=== PATIENT | female | born 1930 | race Caucasian/White ===

== ENCOUNTER 2017-04-22 14:17 | Inpatient (IN) | payer MEDICARE, OTHER ==
[~2017-04-22] VITALS: Ht 157.5 cm; Wt 66.8 kg
[~2017-04-22 14:17] MED LIST: ASPIRIN EC81 MG PO; BENADRYL25 MG PO; CALCIUM600 MG PO; CARVEDILOL25 MG PO; COLACE100 MG PO; DOXAZOSIN MESYLA2 MG PO; FUROSEMIDE20 MG PO; HYDROCHLOROTHIA50 MG PO; IRON18 MG PO; LEVOTHYROXINE88 MCG PO; LISINOPRIL40 MG PO; LUTEIN20 MG PO; MULTI VITAMIN1 EACH PO; NORCO 5-325 TA1 EACH PO; PERCOCET 5-3251 EACH PO; POTASSIUM CHLO20 ME1 PO; VALTREX1000 MG PO
--- NOTE | 2017-05-20 08:36 | NUR ---
05/20/17 0836 Ibis Varma PT O2 100, O2 REMOVED
--- NOTE | 2017-05-20 10:14 | NUR ---
LE 0980 PT RETURNED FROM PACU SLEEPY AND THROWING UP ORANGE BILE. 50ML OF EMESIS IN BAG. CLEANED PT UP. OXYGEN SATS 88% ON RA. 2L NC PLACED AND SATS INCREASED TO 98%. SPOUSE AT BEDSIDE. 0945 PT SIPPING ON SPRITE. 1000 PT RESTING. REU.
--- NOTE | 2017-05-20 10:30 | OR ---
[facility] [address], [place] [address] Signed DATE OF SERVICE: 05/20/2017 PREOPERATIVE DIAGNOSIS: Left knee degenerative joint disease. POSTOPERATIVE DIAGNOSIS: Left knee degenerative joint disease. PROCEDURE PERFORMED: Left total knee arthroplasty with computer navigation. SURGEON: Rani Loomis MD. EXTRUSION FORMER: None. TOURNIQUET TIME: 54 minutes. ANESTHESIA: Spinal with adductor canal block. IMPLANTS: Ying triathlon size 4, 9 mm polyethylene, 32 patella. BRIEF HISTORY: Shila is an 87-year-old female with severe arthritis in her knee. Nonoperative treatment including injections did not work. She wished to proceed with operative intervention. Risks, benefits, and alternatives were discussed at length. She received preoperative clearance from her PCP and Cardiology. Once consent was obtained, she was taken to operating room. After adequate anesthesia, she was placed on operating room table. All downside pressure points well padded. The left leg was placed in well-padded proximal thigh tourniquet. The leg was then prepped and draped in standard sterile fashion. Leg was exsanguinated using Esmarch bandage. Tourniquet inflated to 250 mmHg. Standard anterior approach through curved incision was taken through skin and subcutaneous tissue. Median parapatellar arthrotomy was performed. The infrap a tellar fat pad was excised and the MCL was elevated of a sleeve posteromedially and the knee was flexed. The menisci were removed. The ACL was transected. The PCL was found to be intact. The navigation guide for the distal femur was then pinned and the femur was registered with the computer. The distal femoral cutting block was then pinned in neutral alignment. The distal femoral cut was made. Distal femur sized to a 4 and the 4 cutting block was pinned in line with the epicondylar axis. The anterior, post e rior and chamfer cuts were made. The osteophytes were removed. Attention was then turned to the proximal tibia. The navigation guide was pinned to the tibia and the tibia was registered with the computer. The cutting block was then pinned in neutral alignment once again and the proximal tibial cut was made with care taken to protect the patellar tendon and MCL. The bone block was removed. Posterior osteophytes removed off the femur Electronically Signed By: RANI LOOMIS MD 05/20/17 1030 PATIENT NAME: SHILA MORALES OPERATIVE REPORT DATE OF : 31 PHYSICIAN: RANI LOOMIS MD REPORT #: [id number] REPORT IS CONFIDENTIAL AND NOT TO BE RELEASED WITHOUT AUTHORIZATION [facility] [address], [place] [address] Signed and posterior release performed. Flexion-extension gaps were sized, found to be symmetric at 9 mm. The trials were then positioned. Knee taken through range of motion and found to be stable. The patella was cut sized and drilled for a 32 patella. The distal femoral drill holes were drilled and the trial was removed. The bone was pulse lavaged, packed with dry Ray-Jerson. The cement was mixed. When it reached proper consistency, it was placed on all implants and bone surfaces. Tibia was impacted in position first and the excess cement was removed. The polyethylene was snapped into position and the femur was impacted. Again, any excess cement was removed. The knee was extended and nicely loaded. The patella was clamped and remaining cement was removed. Cement was allowed to harden for 10 minutes, which actually was quite hard in this ca s e and the knee was flexed and the remaining cement was removed using osteotomes. Periarticular soft tissues were injected with ropivacaine and Toradol mixture. The knee was pulse lavaged at intervals throughout the procedure . A total of 3 L of antibiot i c irrigation was used. The arthrotomy was closed using #1 Stratafix, subcutaneous tissue with 0 Stratafix and skin with jose a. Wound was dressed with Mepilex Ag dressing, ABD and Max wrap. She was awakened and taken to recovery room in satisfactory condition. All sponge, needle, and instrument counts were correct. Rani Loomis MD BA/Modl /[id number] Electronically Signed By: RANI LOOMIS MD 05/20/17 1030 PATIENT NAME: SHILA MORALES OPERATIVE REPORT DATE OF : 31 PHYSICIAN: RANI LOOMIS MD REPORT #: [id number] REPORT IS CONFIDENTIAL AND NOT TO BE RELEASED WITHOUT AUTHORIZATION
--- NOTE | 2017-05-20 11:33 | NUR ---
LE 1110 PT INCONTINENT OF LG AMOUNT OF URINE. PT CLEANED UP AND LINEN CHANGED. REPOSITIONED PT TO LAY ON L SIDE. PILLOW BETWEEN LEGS AND BEHIND BACK. SPOUSE AT BEDSIDE. OXYGEN TURNED OFF AND SATS DROPPED TO 82%. OXYGEN BACK ON AT 2L VIA NC WITH SATS 100%.
--- NOTE | 2017-05-20 13:07 | NUR ---
PATIENT ARRIVED TO MED SURG AT 1PM. PATIENT IS NAUSEATED/SLEEPY. IV ZOFRAN ORDER PUT IN [facility]. LEFT KNEE DRESSING IS CDI, KRYO CUFF AND HEEL PROTECTORS IN PLACE. PATIENT IS ON 2L OXYGEN FOR SATS OF 99%. PATIENT REPORTEDLY DESATS TO MID 80'S ON ROOM AIR. DR. KUMAR AWARE OF CONSULT.
--- NOTE | 2017-05-20 14:32 | NUR ---
DR. KUMAR IN TO SEE PATIENT. REGLAN 5MG IV GIVEN FOR CONTINUED NAUSEA. IVF PUT ON HOLD PER DR. KUMAR AND PATIENT CHF HISTORY.
--- NOTE | 2017-05-20 16:12 | NUR ---
PATIENT INCONTINENT OF COPIUS URINE, LINENS CHANGED. PATIENT CONTINUES TO HAVE NAUSEA. DR. KUMAR ORDERED 6.25MG OF IV PHENERGAN. DISCUSSES WITH DR. KUMAR NAUSEA/NO ORAL INTAKE/SL STATUS AND POSSIBILITY OF RESTARTING IVF AT SOME POINT IN THE FUTURE.
--- NOTE | 2017-05-20 17:48 | NUR ---
PATIENT SLEEPING,NO DISTRESS, REGULAR RESPIRATIONS. 2L OF OXYGEN ON AND SATS ARE 99-100%
--- NOTE | 2017-05-20 18:29 | NUR ---
PATIENT RESTING IN BED. STATES THAT SHE'S READY TO EAT. CALL BUTTON IN REACH.
--- NOTE | 2017-05-20 20:55 | NUR ---
PT IS ALERT, ORIENTED IN GOOD SPIRITS, DENIES ANY PAIN, STATES SHE CAN FEEL FAINT SENSATION IN TOES AND TINGLING. INC OF URINE. DRSG IS CDI TO KNEE WITH CRYCUFF ON. HS CARES DONE AND REPOSITIONED FOR COMFORT, WARM BLANKET. DENIES FURTHER NEEDS. CALL LIGHT IN EASY REACH.
--- NOTE | 2017-05-21 02:58 | NUR ---
AWAKE,VS TAKEN, VOIDED 100ML ORANGE URINE INTO BEDPAN, ATTENDS WITH SMALL INCONTINENCE, DRSG IS CDI, CMS INTACT NOW, OXYCODONE 5MG PO GIVEN. RATES PAIN 10/09. "BARELY THERE". EATING CRACKERS AT THIS TIME. CALL LIGHTIN EASY REACH.
--- NOTE | 2017-05-21 05:20 | NUR ---
AWAKE ASKED FOR BREAKFAST ORDER TO BE TAKEN, STATES SHE IS BEGINNING TO BE HUNGRY. LAB IN TO DRAW BLOOD FOR SCHEDULED LABS. PT CONT TO RATE PAIN 1/10,"JUST BARELY THERE". CALL LIGHT IN EASY REACH.
--- NOTE | 2017-05-21 07:20 | NUR ---
REPORT RECIEVED FROM JULITO. PT AWAKE AND DENIES PAIN OR CONCERNS AT THIS TIME.
--- NOTE | 2017-05-21 09:10 | NUR ---
PT SITTING UP INCHAIR. STILL DENIES PAIN BUT WOULD LIKE TO TAKE HER PAIN MED INCASEFORTHERAPY.
--- NOTE | 2017-05-21 10:45 | NUR ---
PATIENT UP TO BSC. BED BATH DONE. RACHELE, SKIN, ORAL CARE DONE. LINENS CHANGED. FRESH ICE WATER GIVEN. ICE IN CRYO. PATIENT SITTING UP IN CHAIR WORKING WITH PT.
--- NOTE | 2017-05-21 11:11 | NUR ---
PT WORKING WITH PHYS. THER. STATES IT IS STARTING TO WAKE UP AND HURT. WILL ADMINISTERED PRN PAIN MED.
[2017-05-21] MEDS ORDERED: COREG25 MG PO (11:15)
--- NOTE | 2017-05-21 11:17 | NUR ---
MED REC COMPLETE WITH SAFEWAY REFILL HISTORY AND PATIENT INTERVIEW.
--- NOTE | 2017-05-21 11:45 | NUR ---
ADMINSTERED MEDS. PT IN ROOM. DENIES FURTHER CONCERNS.
--- NOTE | 2017-05-21 13:44 | NUR ---
PT HAS VISITOR IN ROOM. STATES THAT THE LAST PAIN PILL DID WELL AND DENIES DISCOMFORT NOW.
--- NOTE | 2017-05-21 15:59 | NUR ---
PT UP TO RESTROOM AND WAS PAINFUL, 8\10. ADMINISTERED 2 NORCO, PRN. ASSESSED DRESSING. SLIGHT AMT OF DRY DRAINAGE ON MEPILEX.
--- NOTE | 2017-05-21 18:50 | NUR ---
PATIENT BACK IN BED RESTING WITH EYES CLOSED. ICE IN CRYO. FRESH ICE WATER. PATIENT STATES THAT HER PAIN HAS GONE DOWN ALOT. CALL BUTTON IN REACH. NO OTHER NEEDS AT THIS TIME.
--- NOTE | 2017-05-21 20:05 | NUR ---
RESTING QUIETLY ON BED, STATES SHE IS COMFORTABLE AT THE MOMENT, DAUGHTER IN TO VISIT. CALL LIGHT IN EASY REACH.
--- NOTE | 2017-05-22 00:13 | NUR ---
ONE PERSON ASSIST TO AMBULATE INTO BATHROOM TO VOID USING FWW. ASSISTED BACK INTO BED AND POSITIONED FOR COMFORT,ICE TO KNEE, SCDS AND HEEL PROTECTORS ON. STATES L KNEE IS ACHING, NORCO 7.5MG TAB GIVEN. DENIES NAUSEA. CALL LIGHT IN EASY REACH.
--- NOTE | 2017-05-22 00:16 | NUR ---
PT REPORTS 2ND NORCO HELPED ALOT, PAIN NOW 12/07. GOOD CMS TO L FOOT.
--- NOTE | 2017-05-22 01:15 | NUR ---
AWAKE, REPOSITIONED FOR COMFORT, FEELS L KNEE IS BEGINNING TO ACHE AGAIN, SCHEDULED OXYCODONE GIVEN. DRSG REMAINS CDI. GOOD CMS TO FOOT. CALL LIGHT IN EASY REACH.
--- NOTE | 2017-05-22 02:11 | NUR ---
PT IS ASLEEP, RESP EVEN AND UNLABORED. CALL LIGHT IN EASY REACH.
--- NOTE | 2017-05-22 06:38 | NUR ---
PT WOKE FOR VS AND WEIGHT. ONE PERSON ASSIST TO AMBULATE INTO BATHROOM TO VOID. PT C/O PAIN IN L KNEE THIS MORNING 02/06. HYDROCODONE 2 TABS GIVEN. REPOSITIONED FOR COMFORT IN BED, ICE TO KNEE, SCDS ON, CMS INTACT TO L FOOT. LOOKING FORWARD TO BREAKFAST. CALL LIGHT IN EASY REACH.
--- NOTE | 2017-05-22 07:31 | NUR ---
REPORT RECIEVED FROM KODY WEST. PT SLEEPING. PAIN MEDICATION MAY NEED TO BE CHANGED OR INCREASED PAIN CONTROLL IS GETTING INCREASING HARDER TO ACHIEVE.
--- NOTE | 2017-05-22 08:15 | NUR ---
patient in bed very painful for any ADL'S at this time. Nurse in room assisting patient. fresh water given. ice in cryo.
--- NOTE | 2017-05-22 08:50 | NUR ---
PT REMAINED PAINFUL AFTER 2 NORCO GIVEN BY ENTRY LEVEL ACCOUNTING CLERK. CALLED DR. ORTEGA AND HE CHANGED ORDER TO 7.5MG Q4PRN. TITRATED UP. WILL CHECK ON PT SHORTLY.
--- NOTE | 2017-05-22 11:04 | NUR ---
PATIENT UP TO CHAIR. TOO PAINFUL FOR ANY ADL'S AT THIS TIME. ORAL CARE DONE EARLIER THIS AM. FRESH ICE WATER GIVEN. ICE IN CRYO. NO OTHER NEEDS AT THIS TIME. CALL BUTTON IN REACH.
--- NOTE | 2017-05-22 11:15 | NUR ---
PT WORKED WITH PHYS. THER. STATES HER PAIN 03/09 AND IS NOT WANTING TO DO MUCH WITH JOSE. TOLD HER WE WOULD ADMINISTER PAIN MEDS BEFORE THERAPY THIS AFTERNOON AND ENCOURAGED HER TO AMBULATE.
--- NOTE | 2017-05-22 11:43 | NUR ---
PT HAD STATED THIS MORNING SHE FELT LIKE SHE WAS GETTING CONSTIPATED. TOLD DR ORTEGA UPON ARRIVAL TO FLOOR HE VERBALLY ORDERED SENNA.
--- NOTE | 2017-05-22 12:38 | NUR ---
PT BACK TO BED AFTER UP IN CHAIR. ADMINISTERED PAIN MED, 02/06
--- NOTE | 2017-05-22 14:07 | NUR ---
HELPED PT'S FIND HER RM. HE WAS VERY FRIENDLY, SHE IS IN PAIN TODAY. SHE DID NOT WANT VISITORS. HE THANKED ME AND JOKED THAT THERE WOULD NOT BE ANY ROMANCE TONIGHT. HE HAS KEPT HIS SENSE OF HUMOR. GOD BLESS THEM. I WILL FOLLOW NEEDED
--- NOTE | 2017-05-22 14:15 | NUR ---
PATIENT IS RESTING IN BED WITH EYES CLOSED. ICE IN CRYO. FRESH ICE WATER GIVEN. NO NEEDS AT THIS TIME. CALL BUTTON IN REACH.
--- NOTE | 2017-05-22 15:51 | NUR ---
PT UP TO RESTROOM, THEN WORKING WITH PHYS. THER. PT PAINFUL, HAVE PREMEDICATED WITH FULL DOSE OF PRN.
--- NOTE | 2017-05-22 16:33 | NUR ---
PT STATES RECORDING CLERK,WAS PAINFUL BUT SHE DID IT. NOW BACK TO BED.
--- NOTE | 2017-05-22 17:34 | NUR ---
PATIENT SITTING UP IN BED WITH DINNER. SHE REFUSED TO SIT UP IN CHAIR. FRESH ICE WATER GIVEN. ICE IN CRYO. CALL BUTTON IN REACH.
--- NOTE | 2017-05-22 18:08 | NUR ---
PAIN MEDICATION INCREASED TODAY. STILL FAILY PAINFUL. WORKED WITH PHSY THER. X2 TODAY. DRESSING REPLACED, CDI. 1 PERS. ASSIST WITH FWW TO RESTROOM. DEPENDS FOR DRIBBLING. WOULD LIKE NO VISITORS OTHER THAN FAMILY.
--- NOTE | 2017-05-22 20:04 | NUR ---
IN TO MEET PT, PT AWAKE ATTEMPTING TO EAT DINNER. PT C/O NAUSEA. PRN MEDICATION GIVEN. DRESSING C/D/I. CRYO CUFF, SCDS, TEDS IN PLACE. WATER AT BEDISIDE. CALL LIGHT WITH IN REACH.
--- NOTE | 2017-05-22 22:19 | NUR ---
PT UP TO BATHROOM WITH ASSIST OF PARALEGAL SPECIALIST AND FWW. PT TOLERATED WELL. PT STATES SHE "IS HAVING A LITTLE PAIN". ASSISTED BACK TO BED. CRYO, SCDS,TEDS IN PLACE. WATER AT BEDSIDE. CALL LIGHT WITH IN REACH.
--- NOTE | 2017-05-23 00:11 | NUR ---
IN TO CHECK ON PT, PT AWAKE. UP TO BATHROOM WITH ASSIST AND FWW. PT C/O NAUSEA. WRETCHING NOTED, NO EMESIS. MEDICATION GIVEN. RATES PAIN A 5/10. MEDICATION GIVEN. PT STATES " I FEEL LIKE THERE IS A LUMP IN MY THROAT." C/O GAS PAIN, PT HAS NOT HAD BM. ASSISTED BACK TO BED. CRY, SCD,TEDS IN PLACE. WATER AT BEDSIDE. CALL LIGHT WITHIN REACH.
--- NOTE | 2017-05-23 02:15 | NUR ---
IN TO CHECK ON PT, PT SLEEPING. AWAKENS EASILY TO VOICE. PT RATES PAIN 1/10. PRN MEDICATION GIVEN. DRSG C/D/I. CRYO, SCDS, AND TEDS IN PLACE. WATER AT BEDSIDE. CALL LIGHT WITH IN REACH.
--- NOTE | 2017-05-23 04:13 | NUR ---
IN TO CHECK ON PT, PT SLEEPING. AWAKENS EASILY TO VOICE. RATES PAIN 4/10, SCHEDULED MEDICATION GIVEN. DENIES NAUSEA AT THIS TIME. CRYO CUFF FILLED. SCDS, TEDS AND HEEL PROTECTORS IN PLACE. NO FURTHER NEEDS AT THIS TIME. CALL LIGHT WITH IN REACH.
--- NOTE | 2017-05-23 04:27 | NUR ---
PT SLEPT WELL THROUGH OUT THE SHIFT. N/V X2, PRN MEDICATIONS GIVEN. PT RATES PAIN A 1-5/10 DURING SHIFT, SCHEDULED AND PRN MEDICATION GIVEN. DRSG C/D/I. UP TO BATHROOM 1 PERSON ASSIST WITH FWW. SL IN R HAND. AAOX3, PLEASANT. SCDS, TEDS, CRYO AND HEEL PROTECTORS IN PLACE.
--- NOTE | 2017-05-23 07:10 | NUR ---
REPORT RECEIVED FROM KODY KENNEDY. PT ASLEEP AND SLEPT MOST OF NIGHT. PAIN WAS LOW WHILE IN BED BUT INCREASES QUICKLY WITH MOVEMENT. 03/09 WHILE UP TO RESTROOM THIS MORNING.
--- NOTE | 2017-05-23 09:10 | NUR ---
PT STATES SHE HAD A PRETTY GOOD NIGHT AND WILL LIKELY GO HOME TOMORROW. STATES SHE FEELS BETTER TODAY ALREADY THAN YESTERDAY.
--- NOTE | 2017-05-23 11:03 | NUR ---
patient 1 person assist with fww up to the bathroom to void. patient remain steady on her feet. her pain level at this time is at a 7/10 patient given 2 norco po with saltines.
--- NOTE | 2017-05-23 12:37 | NUR ---
PT SITTING BACK IN BED EATING LUNCH. STATES SHE ISNOT VERY HUNGRY RIGHT NOW, JUST TIRED FROM PHYS. THER. EARLIER. STATES SHE WALKED DOWN KLINE AND DID A FEW THINGS IN THE PT ROOM.
--- NOTE | 2017-05-23 14:52 | NUR ---
PT AWAKE FROM NAP. ADMINISTERED 1 NORCO PER REQUEST PT FEELS IT IS MAKING HER TOO DROWSY.
--- NOTE | 2017-05-23 14:58 | NUR ---
REOMOVED PT TELE PER ORDER. GAVE PT A COLORING SHEET PACK AND SOME COLOR CRAYONS. PT SITTING UP IN BED WORKING ON THEM. APPEARS SATISFIED.
--- NOTE | 2017-05-23 16:20 | NUR ---
PT WORKING WITH PHYS. THER. AND CALLED FOR PAIN MEDICATION. RATES PAIN 03/09
--- NOTE | 2017-05-23 16:27 | NUR ---
FAXD CHART NOTES AND ORDER FOR FRONT WHEELED WALKER TO IN HOME MED INCLUDING ORDER, OP NOTE, PROG NOTES, LAB, MEDS, PT AND OT EVAL AND NOTES. TALKED WITH ABIGAIL FROM THERE AND SHE STATES WALKER WILL BE DELIVERED IN AM.
--- NOTE | 2017-05-23 16:47 | NUR ---
PATIENT AWAKE IN BED. TOOK VITALS. HELPED HER TO THE BATHROOM. FRESH ICE WATER PUT HER SCDS BACK ON. JESUS SAID SHE WAS GOING TO TAKE A NAP. CALL LIGHT IN REACH.
--- NOTE | 2017-05-23 19:45 | NUR ---
IN TO CHECK ON PT, PT AWAKE VISITING WITH . AAO X3, PLEASANT. RATES PAIN 5/10, SCHEDULED MEDICATION GIVEN. DENIES BM TODAY. DRSG C/D/I. CRYO, SCDS, TEDS AND HEEL PROTECTORS IN PLACE. FRESH WATER AT BEDSIDE. ADVISED PT WILL BE BACK WITH PM MEDS. CALL LIGHT WITH IN REACH.
--- NOTE | 2017-05-23 22:26 | NUR ---
IN TO CHECK ON PT, PT APPEARS TO BE SLEEPING. NO APPARENT DISTRESS NOTED. RR EVEN AND UNLABORED. CRYO CUFF, SCDS AND TEDS IN PLACE. WATER AT BEDSIDE. CALL LIGHT WITH IN REACH.
--- NOTE | 2017-05-24 00:12 | NUR ---
IN TO CHECK ON PT, PT APPEARS ASLEEP. AWAKENS EASILY TO VOICE. ALERT AND PLESANT. RATES PAIN A 0/10. STATES "ONCE I MOVE AROUND IT WILL PROBABLY BE WORSE." SCHEDULED PAIN MEDICATIONS GIVEN. DENIES NAUSEA. NO FURTHER NEEDS AT THIS TIME. CRYO, SCDS, TEDS AND HEEL PROTECTORS IN PLACE. CALL LIGHT WITH IN REACH.
--- NOTE | 2017-05-24 01:20 | NUR ---
PT UP TO BATHROOM WITH ASSIST FROM SHELLS INSPECTOR AND FWW. TOLERATED WELL. ASSISTED BACK TO BED. CRYO CUFF, SCDS, TEDS AND HEEL PROTECTORS IN PLACE. CALL LIGHT WITH IN REACH.
--- NOTE | 2017-05-24 03:11 | NUR ---
IN TO CHECK ON PT, PT APPEARS TO BE SLEEPING. RR 12, EVEN AND UNLABORED. NO APPARENT DISTRESS NOTED. CRYO CUFF, SCDS, TEDS AND HEEL PROTECTORS IN PLACE. CALL LIGHT WITH IN REACH.
--- NOTE | 2017-05-24 04:29 | NUR ---
IN TO CHECK ON PT, PT ASLEEP. AWAKENS EASILY TO VOICE. RATES PAIN A 6/10. SCHEDULE MEDICATION GIVEN. PT STATES PAIN IS ACCEPTABLE FOR HER. STATES SHE FEELS LESS DROWSY. PT STATES " I DON'T WANT TO TAKE ANY MORE MEDICATION THEN I HAVE TO." ADVISE PT IS PAIN DOES NOT IMPROVE OR INCREASES TO CALL, PRN MEDICATION AVAILABLE. NO FURTHER NEEDS AT THIS TIME. CRYO CUFF, SCDS, TEDS AND HEEL PROTECTORS IN PLACE. CALL LIGHT IN REACH.
--- NOTE | 2017-05-24 04:59 | NUR ---
PT HAS SLEPT WELL THROUGH OUT THE SHIFT. AAO X3, PLEASANT DEMEANOR. CALL APPROPRIATLY. RATES PAIN 5-6/10, SCHEDULED MEDICATIONS GIVEN. PRN MEDICATION OFFERED, PT STATES THAT HER PAIN IS TOLERABLE. DENIES NEED FOR PRN MEDICATIONS. PT HAS FELT LESS DROWSY SINCE DECREASING PAIN MEDICATION. SLIGHT BOUT OF NAUSEA AT THE START OF SHIFT. NO EMESIS. ZOFRAN GIVEN. DRSG C/D/I. UP TO BATHROOM WITH 1 PERSON ASSIST AND FWW. NO BM THIS SHIFT, SCHEDULED MEDICATION GIVEN. SL IN R HAND. CRYO CUFF, SCDS, TEDS AND HEEL PROTECTORS IN PLACE.
--- NOTE | 2017-05-24 06:34 | NUR ---
IN TO CHECK ON, PT AWAKE. VITALS OBTAINED. AM MEDICATION GIVEN. DRSG C/D/I. SLIGHT REDDNESS NOTED ON THE L INNER THIGH JUST ADJACENT TO THE MEPILEX. AREA IS WARM TO TOUCH. PT STATES SHE WAS SLEEPING WITH HER LEGS CLOSE TOGETHER. CRYO CUFF REPOSITIONED. PT UP TO BATHROOM WITH LINKING MACHINE OPERATOR ASSIST AND FWW. TOLERATED WELL. CRYO CUFF FILLED WITH ICE. SCDS, TEDS AND HEEL PROTECTORS IN PLACE. CALL LIGHT IN REACH.
[2017-05-24] MEDS ORDERED: XARELTO10 MG PO (07:29)
[2017-05-24] MEDS ORDERED: ONDANSETRON HCL4 MG PO (07:42)
[2017-05-24] MEDS ORDERED: MIRALAX17 GM PO (07:42)
--- NOTE | 2017-05-24 07:42 | NUR ---
RECIEVED BEDSIDE REPORT FROM KODY KENNEDY. PT AWAKE IN BED, REPORTED NO PAIN. DRESSING C/D/I. NOC RN REPORTED REDNESS ON LEFT THIGH, SLIGHTLY WARM TO TOUCH, NO PAIN. DR ORTEGA AWARE.
[2017-05-24] MEDS ORDERED: OXYCODONE HCL5 MG PO (07:43)
[2017-05-24] MEDS ORDERED: MILK OF MA400 MG/5 M PO (07:43)
[2017-05-24] MEDS ORDERED: HYDROCODON-ACE1 EA11 PO (07:43)
--- NOTE | 2017-05-24 08:13 | NUR ---
RN CLAIRFIED LASIX ORDER WITH DR. DAS. PER , HOLD PO LASIX FOR 0900 DOSE, GIVE IV LASIX, THEN RESUME PO LASIX.
--- NOTE | 2017-05-24 09:49 | NUR ---
Asked pt if she wanted a shower before going home and she stated that she would love a shower and didnt know we did those here. She did well with it until the end when she had some emesis, I took out the pts I.V. and it was intact, no skin breakdown from the dressing
--- NOTE | 2017-05-24 10:22 | NUR ---
PROMOTIONAL MODEL REPORTED NAUSEA WITH VOMITING DURING SHOWER. NO IV ACCESS AT THIS TIME D/T DISCHARGE. PT GIVEN PRN PO ZOFRAN PER ORDER, EFFECTIVE. WALKER DELIVERED, FAMILY AT BEDSIDE WAITING FOR DISCHARGE.
--- NOTE | 2017-05-24 11:03 | NUR ---
PT READY FOR DISCHARGE. PT REQUESTS PRN PAIN MEDS PRIOR TO DISCHARGE. REPORTS NAUSEA AT [employer]. PRN PAIN MEDS GIVEN WITH PUDDING. PT AND SPOUSE VERBALIZED UNDERSTANDING OF DISCHARGE INSTRUCTIONS. INSTRUCTIONS GIVEN RE: MEDICATIONS, FOLLOW UP, AND WHEN TO CALL THE DOCTOR. PT LEFT FLOOR IN WHEELCHAIR WITH SENIOR GIS ANALYST.
--- NOTE | 2017-05-24 14:01 | NUR ---
PT DRESSED, SITTING IN CHAIR-WAITING TO BE DC'D. HER BY HER SIDE, SEEMED EXCITED AT HAVING HER HOME.THEY BOTH SEEMED INFORMED AND AWARE OF WHAT TO KNOW BEFORE LEAVING. EXTENDED A BLESSING
--- NOTE | 2017-05-25 07:38 | DS ---
[facility] [address] [place], [place] [address] Signed DATE OF ADMISSION: 05/20/17 DATE OF DISCHARGE: 05/24/17 ADMISSION DIAGNOSIS Degenerative joint disease, left knee. DISCHARGE DIAGNOSIS Degenerative joint disease, left knee. PROCEDURE PERFORMED Left total knee arthroplasty. BRIEF HISTORY Shila is an 87-year-old lady who had severe arthritis and was unable to cope with the pain. Nonoperative treatment was ineffective. Risks and benefits of operative treatment were discussed with her and when she was cleared by her PCP, she was taken to the opera t ing room, underwent the above-named procedure. She tolerated this well. She was taken to the recovery room and subsequently to the orthopedic floor. She was placed on oral pain medication of oxycodone and Walsh. The oxycodone was eventually increased to 7.5 q.4 hours which managed her pain well. She was kept on DVT prophylaxis of Xarelto 10 mg p.o. daily in addition to SCDs and TEDs. She did well with physical therapy. She was able ambulate up and down the stairway and up and down the castellanos with good safety profile. She did have some occasional nausea, but no emesis. She was discharged with the above-named medications as well as a little bit of Zofran. She will continue with outpatient physical therapy and see me in 10 days. Rani Loomis MD BA/Valeria /[id number] cc: Zackary Kearns MD Electronically Signed By: RANI LOOMIS MD 05/25/17 0738 PATIENT NAME: SHILA MORALES DISCHARGE SUMMARY DATE OF : 32 PHYSICIAN: RANI LOOMIS MD REPORT #: [id number] REPORT IS CONFIDENTIAL AND NOT TO BE RELEASED WITHOUT AUTHORIZATION
== END 2017-05-24 11:04 | disposition home or self-care (01) | DRG 470 ==
LOC: MS 05-20 05:40 → DSVR 05-20 05:40 → MS 05-20 06:45
PROVIDERS: ADMIT Specialist
PROC: 3E0T3CZ (ICD-10-PCS; 2017-05-20)
PROC: 0SRD0J9 Replacement of Left Knee Joint with Synthetic Substitute, Cemented, Open Approach (ICD-10-PCS; principal; 2017-05-20 06:45)
DX: M17.12 Unilateral primary osteoarthritis, left knee (principal); I50.42 Chronic combined systolic (congestive) and diastolic (congestive) heart failure; G89.18 Other acute postprocedural pain; I11.0 Hypertensive heart disease with heart failure; Z95.0 Presence of cardiac pacemaker; I49.5 Sick sinus syndrome; E03.9 Hypothyroidism, unspecified; Z88.0 Allergy status to penicillin; Z88.2 Allergy status to sulfonamides; K59.03 Drug induced constipation; T40.605A Adverse effect of unspecified narcotics, initial encounter; Y92.230 Patient room in hospital as the place of occurrence of the external cause
CPT/HCPCS: 01402; 36415; 64447; 64450; 76942; 80048; 85025; 94762; 97110; 97116; 97162; 97165; 97535; C1713; C1776; J0690; J1100; J1885; J2250; J2274; J2370; J2405; J2550; J2765; J2795; J3010; J7120

== ENCOUNTER 2019-07-06 05:50 | Inpatient (IN) | payer MEDICARE ==
[~2019-07-06] VITALS: Ht 157.5 cm; Wt 74.4 kg
[~2019-07-06 05:50] MED LIST changes: +COREG25 MG PO; +HYDROCODON-ACE1 EA11 PO; +LEVOTHYROXINE100 MCG PO; +MILK OF MA400 MG/5 M PO; +MIRALAX17 GM PO; +ONDANSETRON HCL4 MG PO; +OXYCODONE HCL5 MG PO; +SPIRONOLACTONE25 MG PO; +XARELTO10 MG PO
--- NOTE | 2019-07-07 08:08 | OR ---
[facility] [address] [place], [place] [address] Signed DATE OF OPERATION: 07/06/2019 SURGEON: Rani Loomis MD PREOPERATIVE DIAGNOSIS: Severe degenerative joint disease, right knee. POSTOPERATIVE DIAGNOSIS: Severe degenerative joint disease, right knee. PROCEDURE PERFORMED: Right total knee arthroplasty with computer navigation. SECURITY SYSTEMS SPECIALIST: 1. Marcela Earl PA-C. 2. DARLENE Graham. Marcela was present critical for all portions of procedure. ANESTHESIA: Spinal. BLOOD LOSS: 150 mL. TOURNIQUET TIME: None. IMPLANTS: Size four Ying triathlon, 9 mm insert, 32 mm patella. BRIEF HISTORY: Shila is an 89-year-old female with significant pain in her knee. She had undergone prior successful left total knee and wished to proceed with the right. Risks and benefits were discussed with her and after medical clearance, she was taken to the operating room. After adequate anesthesia, she was placed on operating room table, all downside pressure points well padded. The right leg was prepped and draped in a standard sterile fashion. The leg was approached through a 6 inch incision longitudinally, carried through skin and subcutaneous tissue. All bleeders were cauterized as we went. The median parapatellar arthrotomy was performed and the infrapatellar fat pad was excised. The MCL was elevated with a sleeve around the Electronically Signed By: RANI LOOMIS MD 07/07/19 0808 PATIENT NAME: SHILA MORALES OPERATIVE REPORT DATE OF : 32 REPORT #: [id number] PHYSICIAN: RANI LOOMIS MD PCP: KYRA ARANDA MD REPORT IS CONFIDENTIAL AND NOT TO BE RELEASED WITHOUT AUTHORIZATION [facility] [address] [place], [place] [address] Signed posteromedial corner. The anterior horn of the lateral meniscus was transected. The medial meniscus was absent. The ACL was transected. The knee was flexed and the navigation guide was pinned to the distal femur and the femur was registered with the computer. The distal femoral cutting block was then pinned in neutral alignment, taking 11 mm off the medial side and 4 off the lateral side. This cut was made with care taken to protect the surrounding soft tissue. The distal femur was then sized to 4, which matched her opposite side. The AP cutting block was then pinned in alignment with the epicondylar axis. The anterior, posterior, and chamfer cuts were made. The bone was removed as were any osteophytes. Attention was then turned to the proximal tibia. The proximal tibia was cleared of meniscus and the navigation guide was pinned to the top of the tibia. The tibia was then registered with the computer. The cutting block was then pinned in neutral alignment, set to take 3 mm off the medial side. The cut was made with care taken to protect the patellar tendon and MCL. The bone was excised as were any meniscal remnants. Posterior osteophytes removed off the femur. Posterior release was performed. One loose body was removed as well. The flexion and extension gaps were sized, found to be symmetric at 9 mm. Again, this matched her opposite side. The trials were positioned, knee was taken through range of motion and found to be stable. The patella was cut sized and drilled for a 32 patella. The drill holes in the distal femur were made and the keel punches was used on the tibia. The bone surfaces were pulse lavaged and packed with dry Ray-Jerson. Cement was mixed. When reached proper consistency it was placed on the tibia and the patella. The tibia was impacted in position first and all excess cement was removed. The polyethylene was snapped into position, the femur was impacted until it was well-seated. The knee was extended and nicely loaded. The patella was clamped into position. Again, all excess cement was removed. The cement was allowed to harden. Once it hardened sufficiently, the knee was flexed and the remaining cement was removed using osteotomes. The periarticular soft tissues were injected with 100 mL ropivacaine Toradol mixture. The On-Q pain pump was then placed from percutaneous position superiorly into the adductor canal from the suprapatellar pouch. The Escobar powder was then placed in all portions of the knee particularly in the posterior aspect which appeared to have some gentle oozing. Her blood pressure did remain high throughout the procedure. The arthrotomy was then closed using #2 Stratafix, #0 Stratafix to the subcutaneous tissue, and jose a to the skin. The wound was dressed with a KRISTEN wound VAC dressings and ABD, and Max wrap. She was awakened, taken to the recovery room in satisfactory condition. All sponge, needle, and instrument counts were correct. Rani Loomis MD Electronically Signed By: RANI LOOMIS MD 07/07/19 0808 PATIENT NAME: SHILA MORALES OPERATIVE REPORT DATE OF : 31 REPORT #: [id number] PHYSICIAN: RANI LOOMIS MD PCP: KYRA ARANDA MD REPORT IS CONFIDENTIAL AND NOT TO BE RELEASED WITHOUT AUTHORIZATION [facility] [address] [place] [address] Signed SHAUN/MARIAH /[id number] Copies: ~ Electronically Signed By: RANI LOOMIS MD 07/07/1908 PATIENT NAME: SHILA MORALES OPERATIVE REPORT DATE OF : 31 REPORT #: [id number] PHYSICIAN: RANI LOOMIS MD PCP: KYRA ARANDA MD REPORT IS CONFIDENTIAL AND NOT TO BE RELEASED WITHOUT AUTHORIZATION
[2019-07-08] MEDS ORDERED: OXYCODONE HCL5 MG PO (11:43)
[2019-07-08] MEDS ORDERED: SENNA LAX8.6 MG PO (11:43)
[2019-07-08] MEDS ORDERED: ASPIRIN EC325 MG PO (11:43)
[2019-07-08] MEDS ORDERED: HEALTHYLAX17 GM PO (11:43)
== END 2019-07-08 14:42 | disposition home or self-care (01) | DRG 470 ==
LOC: DS 05:50 → OPS 05:50 → MS 07:02 → OPS 08:15 → MS 07-08 14:42
PROVIDERS: ADMIT Specialist
PROC: 8E0YXBZ Computer Assisted Procedure of Lower Extremity (ICD-10-PCS; 2019-07-06)
PROC: 3E0T3BZ Introduction of Anesthetic Agent into Peripheral Nerves and Plexi, Percutaneous Approach (ICD-10-PCS; 2019-07-06)
PROC: 3E0T33Z Introduction of Anti-inflammatory into Peripheral Nerves and Plexi, Percutaneous Approach (ICD-10-PCS; 2019-07-06)
PROC: 0SRC0J9 Replacement of Right Knee Joint with Synthetic Substitute, Cemented, Open Approach (ICD-10-PCS; principal; 2019-07-06 06:45)
DX: M17.11 Unilateral primary osteoarthritis, right knee (principal); I50.42 Chronic combined systolic (congestive) and diastolic (congestive) heart failure; G89.18 Other acute postprocedural pain; I11.0 Hypertensive heart disease with heart failure; I49.5 Sick sinus syndrome; E03.9 Hypothyroidism, unspecified; Z95.0 Presence of cardiac pacemaker; Z79.82 Long term (current) use of aspirin; Z79.899 Other long term (current) drug therapy; Z88.0 Allergy status to penicillin; Z88.2 Allergy status to sulfonamides; Z91.040 Latex allergy status; Z88.8 Allergy status to other drugs, medicaments and biological substances
CPT/HCPCS: 01402; 64447; 64450; 76942; 97110; 97116; 97161; C1713; C1776; J0131; J0360; J0690; J1100; J1885; J2250; J2405; J2704; J2795; J3010; J8540

== ENCOUNTER 2020-02-22 14:46 | Emergency (ER) | payer MEDICARE ==
[~2020-02-22] VITALS: Ht 157.5 cm; Wt 72.6 kg
--- OUTSIDE RECORDS SUMMARY | ~2020-02-22 | XMS | Clinical Summary ---
Demographics + + + | Address | [address] | | | [place] [address] | + + + | Home Phone | | + + + | Preferred Language | Unknown | + + + | Marital Status | Single | + + + | Holiness Affiliation | Unknown | + + + | Race | Unknown | + + + | Ethnic Group | Other Race | + + + Author + + + | Author | [facility] | + + + | Organization | [facility] | + + + | Address | Unknown | + + + | Phone | Unavailable | + + + Care Team Providers + +------+ + | Care Leadership Development Instructor Name | Role | Phone | + +------+ + PCP | Unavailable | + +------+ + Source Comments [facility] Allergies Not on File Medications Not on file Active Problems Not on file Encounters +--------+ + + + + | Date | Type | Specialty | Care Team | Description | +--------+ + + + + | 12/30/ | Documentati | Non [facility] | Unknown | | | 2020 | on | Department | | | +--------+ + + + + from Last 3 Months Social History + +-------+ +--------+------+ | Tobacco Use | Types | Packs/Day | Years | Date | | | | | Used | | + +-------+ +--------+------+ | Never Assessed | | | | | + +-------+ +--------+------+ + + + | Sex Assigned at | Date Recorded | | | | + + + | Not on file | | + + + + + + + | Job Start Date | Occupation | Industry | + + + + | Not on file | Not on file | Not on file | + + + + + + + + | Travel History | Travel Start | Travel End | + + + + + + | No recent travel history available. | + + Last Filed Vital Signs Not on file Plan of Treatment Not on file Results Not on filefrom Last 3 Months Insurance + +--------+ +--------+ + +--------+ | Payer | Benefi | Subscriber | Effect | Phone | Address | Type | | | t Plan | ID | shabana | | | | | | / | | Dates | | | | | | Group | | | | | | + +--------+ +--------+ + +--------+ | MEDICARE | MEDICA | xxxxxxxxxx | Effect | [phone] | [address] | [address] | | | RE A & | | shabana | [address] | re | | | B | | for | | [place], [place] | | | | | | all | | [phone] | | | | | | dates | | | | + +--------+ +--------+ + +--------+ | [facility] | UNITED | xxxxxxxxx | Effect | | | PPO | | | | | shabana | | | | | | HEALTH | | for | | | | | | CARE | | all | | | | | | | | dates | | | | + +--------+ +--------+ + +--------+ + +--------+ +--------+ + + | Guarantor Name | Accoun | Relation to | Date | Phone | Billing Address | | | t Type | Patient | of | | | | | | | | | | + +--------+ +--------+ + + | Mary Flaherty | Person | Self | [birth year] | [address] | | | al/Fam | | 1930 | [phone] | [place] [address] | | | cathy | | | 4 (Home) | | + +--------+ +--------+ + +"
--- OUTSIDE RECORDS SUMMARY | ~2020-02-22 | XMS | Encounter Summary ---
Demographics + + + | Address | [address] | | | [place] [address] | + + + | Home Phone | | + + + | Preferred Language | Unknown | + + + | Marital Status | | + + + | Cheondoism Affiliation | 1077 | + + + | Race | Unknown | + + + | Ethnic Group | Unknown | + + + Author + + + | Author | [facility] | | | and [place] | + + + | Organization | [facility] | | | and [place] | + + + | Address | Unknown | + + + | Phone | Unavailable | + + + Support + + + + + | Name | Relationship | Address | Phone | + + + + + | Boo Flaherty | ECON | , [address] | | + + + + + | Edyta Pickett | ECON | Unknown | | + + + + + Care Team Providers + +------+ + | Care Insurance Clerk Name | Role | Phone | + +------+ + | Zackary Kearns MD | PCP | | + +------+ + Reason for Visit + + + | Reason | Comments | + + + | Medication Refill | | + + + Encounter Details +--------+--------+ + + + | Date | Type | Department | Care Team | Description | +--------+--------+ + + + | 01/13/ | Refill | [facility] | Benson Weaver, | Medication Refill | | 2019 | | CARDIOLOGY [place] | [address] | | | | | [address] | [place], [place] | | | | | [place] [address] | [address] | | | | | [place] | | | | | | [address] | | | | | | [phone] | | | +--------+--------+ + + + Social History + +-------+ +--------+------+ | Tobacco Use | Types | Packs/Day | Years | Date | | | | | Used | | + +-------+ +--------+------+ | Never Smoker | | | | | + +-------+ +--------+------+ + +---+---+---+ | Smokeless Tobacco: | | | | | Never Used | | | | + +---+---+---+ + + +---------+ + | Alcohol Use | Drinks/Week | oz/Week | Comments | + + +---------+ + | Not Currently | | | | + + +---------+ + + + + | Sex Assigned at [...] | 05/18/ | Office | Cardiology | [place], [place], | | | 2020 | Visit | | MD [address] | | | | | | [place] | | | | | | [address] | | | | | | | | +--------+---------+ + + + documented as of this encounter Visit Diagnoses Not on filedocumented in this encounter"
--- OUTSIDE RECORDS SUMMARY | ~2020-02-22 | XMS | Clinical Summary ---
Demographics + + + | Address | [address] | | | [place] [address] | + + + | Home Phone | | + + + | Preferred Language | Unknown | + + + | Marital Status | | + + + | Episcopal Affiliation | 1077 | + + + | Race | Unknown | + + + | Ethnic Group | Unknown | + + + Author + + + | Author | [facility] | | | and [place] | + + + | Organization | [facility] | | | and [place] | + + + | Address | Unknown | + + + | Phone | Unavailable | + + + Support + + + + + | Name | Relationship | Address | Phone | + + + + + | Boo Flaherty | ECON | , [address] | | + + + + + | Edyta Pickett | ECON | Unknown | | + + + + + Care Team Providers + +------+ + | Care Check Embosser Name | Role | Phone | + +------+ + | Zackary Kearns MD | PCP | | + +------+ + Allergies + + + + + + | Active Allergy | Reactions | Severity | Noted | Comments | | | | | Date | | + + + + + + | Gabapentin | Hives | High | 02/29/20 | | | | | | 17 | | + + + + + + | Penicillins | Anaphylaxis | High | 07/29/20 | Anaphylaxis | | | | | 14 | | + + + + + + | Statins | Other (See Comments) | Medium | 02/29/20 | Increased liver | | | | | 17 | enzymes | + + + + + + | Sulfa Antibiotics | Rash | Medium | 02/29/20 | Rash | | | | | 17 | | + + + + + + | Adhesive & Tape | Rash | Medium | //20 | Rash | | | | | 14 | | + + + + + + Medications + + + +---------+------+------+-------+ | Medication | Sig | Dispensed | Refills | Star | End | Statu | | | | | | t | Date | s | | | | | | Date | | | + + + +---------+------+------+-------+ | levothyroxine | Take 88 mcg by mouth | | 0 | 10/3 | | Activ | | (SYNTHROID) 88 mcg | every morning | | | 0/20 | | e | | tablet | before breakfast. | | | 14 | | | + + + +---------+------+------+-------+ | doxazosin | Take 2 mg by mouth | | 0 | 10/3 | | Activ | | (CARDURA) 2 mg | nightly. | | | 0/20 | | e | | tablet | | | | 14 | | | + + + +---------+------+------+-------+ | potassium chloride | Take 20 mEq by mouth | | 0 | 10/3 | | Activ | | (KLOR-CON M20) 20 | 2 (two) times | | | 0/20 | | e | | mEq ER tablet | daily. | | | 14 | | | + + + +---------+------+------+-------+ | aspirin 81 mg EC | Take 81 mg by mouth | | 0 | 10/3 | | Activ | | tablet | daily with | | | 0/20 | | e | | | breakfast. | | | 14 | | | + + + +---------+------+------+-------+ | furosemide (LASIX) | Take 20 mg by mouth | | 0 | 11/1 | | Activ | | 20 mg tablet | daily. | | | 920 | | e | | | | | | 15 | | | + + + +---------+------+------+-------+ | carvedilol (COREG) | TAKE ONE TABLET BY | 180 | 0 | 05/2 | | Activ | | 25 mg tablet | MOUTH TWICE DAILY | tablet | | 0/20 | | e | | | WITH MEALS | | | 19 | | | + + + +---------+------+------+-------+ | Multiple | Take by mouth. | | 0 | | | Activ | | Vitamins-Minerals | | | | | | e | | (MULTIVITAMIN ADULT | | | | | | | | PO) | | | | | | | + + + +---------+------+------+-------+ | lisinopril | Take 1 tablet by | 60 | 2 | 02/1 | | Activ | | (PRINIVIL, ZESTRIL) | mouth Daily. | tablet | | 9/20 | | e | | 20 mg tablet | | | | 20 | | | + + + +---------+------+------+-------+ | spironolactone | Take one-half tablet | 45 | 3 | 12/29 | | Activ | | (ALDACTONE) 25 mg | once each day | tablet | | 04/18 | | e | | tablet | | | | 20 | | | + + + +---------+------+------+-------+ Active Problems + + + | Problem | Noted Date | + + + | Paroxysmal atrial fibrillation | 06/21/2018 | + + + + + | Overview: She's had brief episodes of atrial fibrillation | | lasting for up to 10 seconds. We briefly discussed | | anticoagulation and she would like to avoid anticoagulation if | | possible. If she has any significant duration of A. fib, she | | should be anticoagulated. Her chads 2 vascular score is 5. | + + + + + | Daytime hypersomnolence | 06/21/2018 | + + + + + | Overview: She has daytime hypersomnolence. We briefly | | discussed getting a sleep study but she has no interest in using | | oxygen or CPAP, so it will not be ordered. | + + + + + | Mild mitral regurgitation by prior echocardiogram | 12/04/2017 | + + + + + | Overview: Mild MR and TR and ejection fraction 35-40% on | | recent echo. | + + + + + | Mild tricuspid regurgitation by prior echocardiogram | 12/04/2017 | + + + + + | Overview: And mild TR and MR. | + + + + + | Acquired hypothyroidism | 12/04/2017 | + + + + + | Overview: On levothyroxine 0.88 mg per day | + + + + + | Non-ischemic cardiomyopathy | 10/09/2017 | + + + + + | Overview: cath 10/10/17: 1. Nonischemic cardiomyopathy, could | | be secondary to pacemaker-induced cardiomyopathy. 2. No | | significant coronary artery disease. 3. Elevated opening | | pressure. 4. Right iliac artery loop. Echo 03/08/17 IMPRESSION: 1. | | The left ventricle is normal in size, wall thickness moderately | | impaired systolic function EF 35-40%. 2. There is | | paradoxical/dysynergic septal motion consistent with RV pacing. | | 3. The diastolic filling pattern indicates impaired relaxation | | consistent with mild dysfunction (Grade I). 4. The right | | ventricle is normal in size and function. 5. Mild mitral | | regurgitation and mildly dilated left atrium. 6. Mild tricuspid | | regurgitation with no pulmonary hypertension. 7. There is no | | pericardial effusion. | |5. Mild mitral regurgitation and mildly dilated left atrium. | |6. Mild tricuspid regurgitation with no pulmonary hypertension. | |7. There is no pericardial effusion. | + + + + + | Systolic dysfunction | 10/09/2017 | + + + | SSS (sick sinus syndrome) | 07/29/2014 | + + + | Essential hypertension with goal blood pressure less than 130/80 | 07/29/2014 | + + + + + | Overview: The blood pressure is reasonably well controlled | | on current therapy. Grade 1 diastolic dysfunction noted on an | | echo.On carvedilol 25 mg twice a day and lisinopril 40 mg per | | day. Also on Cardura 2 mg at night and Lasix 20 mg per day. | + + + + + | HLD (hyperlipidemia) | 07/29/2014 | + + + | Cardiac pacemaker in situ | 07/29/2014 | + + + + + | Overview: Initial pacemaker was placed on 06/13/02 by | | Carrol Mauricio, [facility], and | | gen-change was preformed on 11/03/[address] David Albarran MD | | Medtronic - Pacemaker. Model-S/N: Adapta ADDR01 - [id number]. | | 11/28/2017 She has a high ventricular pacing burden (100%) and her | | LV systolic function has deteriorated. A recent ejection fraction | | is 35-40%, so an upgrade to a ENAMEL SPRAYER pacemaker has been | | recommended. She has class III symptoms of heart failure. The | | paced QRS duration was 190 ms on a recent ECG 06/19/18: A ENAMEL SPRAYER | | upgrade to a [employer] ENAMEL SPRAYER pacemaker was performed in November 2017. | | She feels better since then, with more energy and less shortness | | of breath. Appropriate device function was seen today, with | | excellent chronic pacing and sensing thresholds. She's had brief | | episodes of atrial fibrillation lasting for up to 10 seconds. | | We briefly discussed anticoagulation and she would like to avoid | | anticoagulation if possible. If she has any significant duration | | of A. fib, she should be anticoagulated. Her chads 2 vascular | | score is 5.Appropriate device function was seen today. The pacing | | threshold was 1.25 V at 0.4 ms in the atrium, 1.5 V at 0.4 ms in | | the RV, and 0.75 V at 0.6 ms in the LV. P waves were 1.5 mV. | | There were no reliable underlying R waves. Pacing has occurred in | | the ventricles greater than 99% of time and in the atrium 44% of | | the time. There have been no episodes of mode switching. | + + Encounters +--------+ + + + + | Date | Type | Specialty | Care Team | Description | +--------+ + + + + | 02/08/ | Procedure | Cardiology | | Cardiac pacemaker in | | 2020 | visit | | | situ (Primary Dx) | +--------+ + + + + | 01/13/ | Refill | Cardiology | Benson Weaver, | Medication Refill | | 2020 | | | MD | | +--------+ + + + + from Last 3 Months Family History + + +------+ + | Medical History | Relation | Name | Comments | + + +------+ + | Heart disease | Father | | | + + +------+ + | Hypertension | Father | | | + + +------+ + | Heart disease | Mother | | | + + +------+ + | Hypertension | Mother | | | + + +------+ + + +------+ + + | Relation | Name | Status | Comments | + +------+ + + | Father | | | heart disease,ulcers,HTN | | | | (Age | | | | | 73) | | + +------+ + + | Father | | | | + +------+ + + | Mother | | | CHF,HTN,heart disease | | | | (Age | | | | | 80) | | + +------+ + + | Mother | | | | + +------+ + + Social History + +-------+ +--------+------+ [...] | + + Last Filed Vital Signs + + + + + | Vital Sign | Reading | Time Taken | Comments | + + + + + | Blood Pressure | 108/68 | 11/18/2019 2:12 PM | | | | | PST | | + + + + + | Pulse | 82 | 11/18/2019 2:12 PM | | | | | PST | | + + + + + | Temperature | 36.6 C (97.9 F) | 12/05/2017 9:50 AM | | | | | PST | | + + + + + | Respiratory Rate | 16 | 12/05/2017 9:50 AM | | | | | PST | | + + + + + | Oxygen Saturation | 97% | 11/18/2019 2:12 PM | | | | | PST | | + + + + + | Inhaled Oxygen | - | - | | | Concentration | | | | + + + + + | Weight | 71.2 kg (157 lb) | 11/18/2019 2:12 PM | | | | | PST | | + + + + + | Height | 157.5 cm (5' 2") | 11/18/2019 2:12 PM | | | | | PST | | + + + + + | Body Mass Index | 28.72 | 11/18/2019 2:12 PM | | | | | PST | | + + + + + Plan of Treatment +--------+---------+ + + + | Date | Type | Specialty | Care Team | Description | +--------+---------+ + + + | 05/18/ | Office | Cardiology | Benson Weaver, | | | 2019 | Visit | | MD Stu ANDERSON | | | | | | [facility] [place] | | | | | | [address] | | | | | | | | +--------+---------+ + + + + + + + + | Health Maintenance | Due Date | Last Done | Comments | + + + + + | Vaccine: | | | | | Dtap/Tdap/Td (1 - | 2 | | | | Tdap) | | | | + + + + + | Vaccine: Zoster (1 | | | | | of 2) | 1 | | | + + + + + | Vaccine: | | | | | Pneumococcal 65+ (1 | 6 | | | | of 2 - PCV13) | | | | + + + + + | Adult Annual | | | | | Wellness Visit | 9 | | | + + + + + | Vaccine: Influenza | Completed | 06/16/2019, 06/05/2018 | | + + + + + Implants + +--------+------+ +--------+--------+--------+ | Implanted | Type | Area | Manufacture | Device | Shelf | Model | | | | | r | | Expira | / | | | | | | Identi | tion | Serial | | | | | | fier | Date | / Lot | + +--------+------+ +--------+--------+--------+ | Implant Id: [id number] - | Cardia | | [employer] | | 08/29/ | | | Quartet-12/04/2017Implanted: | c | | MEDICAL - | | 2019 | /[id number] | | Qty: 1 on 12/04/2017 by | Rhythm | | STJU | | | [id number] | | Andrew Liang MD | | | | | | | | | Manage | | | | | | | | ment | | | | | | + +--------+------+ +--------+--------+--------+ | Implant Id: [id number] - Quadra | Cardia | | [employer] | | 03/29/ | | | Lisa Mp RfImplanted: Qty: 1 | c | | MEDICAL - | | 2018 | /[id number] | | on 12/04/2017 by Andrew Liang | Rhythm | | STJU | | | 28 / | | MD Varun | | | | | | | | | Manage | | | | | | | | ment | | | | | | + +--------+------+ +--------+--------+--------+ Procedures + +--------+ + + + | Procedure Name | Priori | Date/Time | Associated Diagnosis | Comments | | | ty | | | | + +--------+ + + + | DEVICE | Routin | 02/09/2020 | Cardiac pacemaker | Results for this | | INTERROGATION- | e | 8:10 AM | in situ | procedure are in the | | REMOTE | | PDT | | results section. | + +--------+ + + + from Last 3 Months Results Device Interrogation - Remote (02/09/2020 8:10 AM PDT) + + + | Narrative | Performed At | + + + | Gladys Farooq | [facility] | | KODY Cai 02/09/2020 9:39 IMANI REMOTE INTERROGATION | | | REPORT Name: Mary Flaherty PCP: Zackary Kearns MD : | | | 1930MRN: [id number] Primary cardiology provider: Benson | | | [facility] Primary electrophysiology provider: Andrew Liang Device | | | regional sales coordinator: [employer] Device type: Biventricular Battery Longevity: | | | 7.7-8.0 years. RA Pacin%BiV Pacing: >99% INTERROGATION | | | RESULTS:Please see the full interrogation report attached Known | | | history of atrial flutter or atrial fibrillation: YesCurrent | | | antithrombotic therapy including: aspirin Since last remote on | | | 11/10/2019:Mode switches: 4 Atrial events with EGMs noted. Fastest | | | event on 01/08/2020 at 2148 had a peak Ventricular rate of 80 bpm, | | | lasting 14 seconds. Longest event on 11/11/2019 at 2332 lasted for 26 | | | seconds, with a peak Ventricular rate of 69 bpm. Ventricular high | | | rate episodes: None. Lead function: Lead impedance and threshold value | | | trends have been reviewed and are acceptable based on most recent | | | evaluation Follow up: The next scheduled interrogation will be in 3 | | | months in the cardiac device clinic. Additional comments: None. | | | IMPRESSION:1. Normal pacemaker function.2. 4 Atrial events noted | | | above.3. No ventricular high rate episodes were noted. Testing | | | reviewed by: KODY Graham completed with KODY Ramires | | |Known history of atrial flutter or atrial fibrillation: Yes | | |Current antithrombotic therapy including: aspirin | | | | | |Since last remote on 11/10/2019: | | |Mode switches: | | |4 Atrial events with EGMs noted. | | | Fastest event on 01/08/2020 at 2148 had a peak Ventricular rate | | |of 80 bpm, lasting 14 seconds. | | | Longest event on 11/11/2019 at 2332 lasted for 26 seconds, with | | |a peak Ventricular rate of 69 bpm. | | | | | |Ventricular high rate episodes: None. | | | | | |Lead function: Lead impedance and threshold value trends have | | |been reviewed and are acceptable based on most recent evaluation | | | | | |Follow up: The next scheduled interrogation will be in 3 months | | |in the cardiac device clinic. | | | | | |Additional comments: None. | | | | | |IMPRESSION: | | |1. Normal pacemaker function. | | |2. 4 Atrial events noted above. | | |3. No ventricular high rate episodes were noted. | | | | | |Testing reviewed by: KODY Graham completed with KODY Ramires | | + + + + +---------+ + + | Performing | Address | City/State/Zipcode | Phone Number | | Organization | | | | + +---------+ + + | [facility] | | | | + +---------+ + + from Last 3 Months Insurance + +--------+ +--------+-------+---------+--------+ | Payer | Benefi | Subscriber | Effect | Phone | Address | Type | | | t Plan | ID | shabana | | | | | | / | | Dates | | | | | | Group | | | | | | + +--------+ +--------+-------+---------+--------+ | [facility] | [facility] | [id number] | 09/30/19 | | | Medica | | MEDICARE PPO | HEALTH | | 20-Pre | | | re | | | CARE | | sent | | | | | | MDCR | | | | | | | | PPO | | | | | | + +--------+ +--------+-------+---------+--------+ + +--------+ +--------+ + + | Guarantor Name | Accoun | Relation to | Date | Phone | Billing Address | | | t Type | Patient | of | | | | | | | | | | + +--------+ +--------+ + + | Mary Flaherty | Person | Self | [birth year] | [address] | | Maggie | al/Fam | | 1930 | [phone] | [address] [place], | | | cathy | | | [address] (Home) | [place] [address] | + +--------+ +--------+ + + Advance Directives + + + + + | Type | Date Recorded | Patient | Explanation | | | | Planning Aide | | + + + + + | Power of | | | | | Lead Applier | | | | + + + + + | Advance | | | | | Directive | | | | + + + + +
--- OUTSIDE RECORDS SUMMARY | ~2020-02-22 | XMS | Encounter Summary ---
Demographics + + + | Address | [address] | | | [place] [address] | + + + | Home Phone | | + + + | Preferred Language | Unknown | + + + | Marital Status | | + + + | Episcopalian Affiliation | 1077 | + + + | Race | Unknown | + + + | Ethnic Group | Unknown | + + + Author + + + | Author | [facility] | | | and [place] | + + + | Organization | [facility] | | | and [place] | + + + | Address | Unknown | + + + | Phone | Unavailable | + + + Support + + + + + | Name | Relationship | Address | Phone | + + + + + | Boo Flaherty | ECON | , [address] | | + + + + + | Edyta Pickett | ECON | Unknown | | + + + + + Care Team Providers + +------+ + | Care Remote Broadcast Technician Name | Role | Phone | + +------+ + | Zackary Kearns MD | PCP | | + +------+ + Encounter Details +--------+ + + + + | Date | Type | Department | Care Team | Description | +--------+ + + + + | 10/22/ | Orders Only | [facility] | Benson Weaver, | | | 2018 | | CARDIOLOGY [facility] | [address] | | | | | [address] | [place], [place] | | | | | [place], [place] | [address] | | | | | [address] | | | | | | [phone] | | | +--------+ + + + [...] [place] | | | | | | [address] | | | | | | | | +--------+---------+ + + + documented as of this encounter Visit Diagnoses Not on filedocumented in this encounter"
--- OUTSIDE RECORDS SUMMARY | ~2020-02-22 | XMS | Encounter Summary ---
Demographics + + + | Address | [address] | | | [place] [address] | + + + | Home Phone | | + + + | Preferred Language | Unknown | + + + | Marital Status | | + + + | Anabaptism Affiliation | 1077 | + + + | Race | Unknown | + + + | Ethnic Group | Unknown | + + + Author + + + | Author | [facility] | | | and [place] | + + + | Organization | [facility] | | | and [place] | + + + | Address | Unknown | + + + | Phone | Unavailable | + + + Support + + + + + | Name | Relationship | Address | Phone | + + + + + | Boo Flaherty | ECON | , [address] | | + + + + + | Edytakrystle Pickett | ECON | Unknown | | + + + + + Care Team Providers + +------+ + | Care Mop Maker Name | Role | Phone | + +------+ + PCP | Unavailable | + +------+ + Encounter Details +--------+ + + + + | Date | Type | Department | Care Team | Description | +--------+ + + + + | 12/04/ | Hospital | [facility] | Conversion | 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 Pt educated about discharge, discharge instruction, pt medications and prescription discussed. Pt verbalized understanding. Neto Bullock RN uAndrwe veloz MD - 12/05/2017 6:11 AM PST Progress Notes by Andrew Liang MD at 12/05/17 0611 Author: Andrew Liang MD Service: Cardiology Author Type: Physician Filed: 12/05/17 0846 Date of Service: 12/05/17610 Status: Addendum Sack Cleaner: Andrew Liang MD (Physician) Related Notes: Original Note by Olesya Cuevas NP (Nurse Practitioner) filed at 12/05/1703 17 [facility] PATIENT NAME: Mary Flaherty : 1930: AGE: 87 y.o. ADMISSION DATE: 12/04/2017 Hospital Day # 0 Date of Service: 12/05/2017 Principal Hospital Problem: BiV Upgrade Code Status: Full Code PRIMARY CARE: KYRA Cuevas [facility] PROGRESS NOTE Events since last [...] placed on 06/13/[address] Carrol Mauricio [facility], [facility], and gen-change was preformed on 11/03/[address] David Albarran MD Medtronic - Pacemaker. Model-S/N: Adapta ADDR01 - [id number]. 11/28/2017 ANTIQUE FURNITURE RESTORER-P risk, benefits, procedure, and consent was completed during this visit.She has a high ventricular pacing burden (100%) and her LV systolic function has deteriorated. A recent ej ection fraction is 35-40%, so an upgrade to a ANTIQUE FURNITURE RESTORER pacemaker has been recommended. She has cl [...] (none) Author Type: Registered Nurse Filed: 12/05/17 0423 Date of Service: 03/08/18 0040 Status: Signed Sack Cleaner: Maria De Jesus Nuñez RN (Registered Nurse) [...] 12/03/171749 Date of Service: 12/03/171742 Status: Signed Sack Cleaner: Yvonne Duran RN (Registered Nurse) [facility] Pre-Procedure Telephone Call Date 12/03/2017 5:43 PM Type of Procedure: BIV Gen Change Spoke with: Patient Sterilizer Operator needed: No Arrival Time: 1430 NPO from: 629 Diabetic: No If Yes are they on Glucophage/Metformin No Date of last Dose NA Is patient on Anticoagulants No Date of Last Dose NA Iodine Allergy? No Action: NA, Pre-medicated and Physician Notified Bring a list of your medications/dosages: yes *Straight Cutter home* yes *Check in at Main [...] [place] | | | | | | [address] | | | | | | | [...] NEGATIVE Testing | | | performed at [facility];[address] [facility] [address];[place] [address] | | + + + + +---------+ [...]
--- OUTSIDE RECORDS SUMMARY | ~2020-02-22 | XMS | Encounter Summary ---
Demographics + + + | Address | [address] | | | [place] [address] | + + + | Home Phone | | + + + | Preferred Language | Unknown | + + + | Marital Status | | + + + | Muslim Affiliation | 1077 | + + + | Race | Unknown | + + + | Ethnic Group | Unknown | + + + Author + + + | Author | [facility] | | | and [place] | + + + | Organization | [facility] | | | and [place] | + + + | Address | Unknown | + + + | Phone | Unavailable | + + + Support + + + + + | Name | Relationship | Address | Phone | + + + + + | Boo Flaherty | ECON | , [address] | | + + + + + | Edyta Pickett | ECON | Unknown | | + + + + + Care Team Providers + +------+ + | Care Parole Agent Name | Role | Phone | + +------+ + PCP | Unavailable | + +------+ + Encounter Details +--------+ + + + + | Date | Type | Department | Care Team | Description | +--------+ + + + + | 11/03/ | Hospital | [facility] | Abdulaziz Albarran MD | Fitting and | | 2010 | Encounter | [facility] | | adjustment of | | | | CLINICAL DECISION | | cardiac pacemaker | | | | [address] | | | | | | [place], [place] | | | | | | [address] | | | | | | [phone] | | | +--------+ + + + [...] | | | | | [facility] [place] | | | | | | [address] | | | | | | | [...] Performed At | + + + | [facility] [address] Ph: | | | Patient Name: SHILA FLAHERTY V Date of : | | | 1930 Medical Record: [id number] Account: [id number] | | | Exam Date/Time: 11/03/2010 13:30 [...] Medtronic, | | | product #ADDR01, serial #[id number]. PHYSIOLOGIC DATA The right | | | atrial lead was a Medtronic lead with a serial #[id number]. The | | | sensing threshold on the right atrial lead was 1.3 millivolts. The | | | impedance was 490 ohms and the pacing threshold was 0.9 volts with a | | | pulse width of 0.5 milliseconds. The right ventricular lead was a | | | Medtronic, product #4023, serial #[id number]. The sensing threshold | | | was [...] DT: | | | 11/04/2010 09:27 P //[id number]/ Read by ABDULAZIZ ALBARRAN MD | | | 11/04/2010 06:59 P Electronically signed by ABDULAZIZ ALBARRAN MD on | | | 11/21/2010 8:23 PM | | + + + + + | Procedure Note | + + | Lenny Vazquez Conversion - 05/23/2019 1:39 PM PDT | | [facility] | | [facility] [address] | | | | | | Patient Name: SHILA FLAHERTY V | | Date of : 1930 | | Medical Record: [id number] | | Account: [id number] | | | | | | Exam [...] | | TECHNICAL DATAPulse generator is a [employer]en, product #ADDR01, serial | | #[id number]. | | | | PHYSIOLOGIC DATA | | The right atrial lead was a Medtronic lead with a serial #[id number]. | | The sensing threshold on the right atrial lead was 1.3 millivolts. The | | impedance was 490 ohms and the pacing threshold was 0.9 volts with a | | pulse width of 0.5 milliseconds. | | | | The right ventricular lead was a [employer]en, product #4023, serial | | #[id number]. The sensing threshold was 9.2 millivolts. The [...] | P | | P | | //[id number]/ | | | | Read by | | ABDULAZIZ ALBARRAN MD 11/04/2010 06:59 P | | | | | + + documented in this encounter Visit Diagnoses + + | Diagnosis | + + | Fitting and adjustment of cardiac pacemaker | + + documented in this encounter"
--- OUTSIDE RECORDS SUMMARY | ~2020-02-22 | XMS | Encounter Summary ---
Demographics + + + | Address | [address] | | | [place] [address] | + + + | Home Phone | | + + + | Preferred Language | Unknown | + + + | Marital Status | | + + + | Judaism Affiliation | 1077 | + + + | Race | Unknown | + + + | Ethnic Group | Unknown | + + + Author + + + | Author | [facility] | | | and [place] | + + + | Organization | [facility] | | | and [place] | + + + | Address | Unknown | + + + | Phone | Unavailable | + + + Support + + + + + | Name | Relationship | Address | Phone | + + + + + | Boo Flaherty | ECON | , [address] | | + + + + + | Edyta Pickett | ECON | Unknown | | + + + + + Care Team Providers + +------+ + | Care Quarry Equipment Operator Name | Role | Phone | [...] + + | 11/18/ | Office | [facility] | Benson Abel, | Essential | | 2020 | Visit | CARDIOLOGY [facility] | [address] | hypertension with | | | | [address] | [place], [place] | goal blood pressure | | | | [address] [place] [address] | [address] | less than 130/80 | | | | [place] | | (Primary Dx); | | | | [address] | | Non-ischemic | | | | [phone] | | cardiomyopathy | | | | [...] without cardiac event. 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 Denies [...] implant 06/13/2002, replaced 11/03/2010, Medtronic ADDR01, SN: [id number]. 11/28/2017 [employer] model [id number], serial number [id number] permanent pacemaker. ASSESSMENT: Patient is 89 y.o. [...] [place] | | | | | | [address] | | | | | | | [...]
--- OUTSIDE RECORDS SUMMARY | ~2020-02-22 | XMS | Encounter Summary ---
Demographics + + + | Address | [address] | | | [place] [address] | + + + | Home Phone | | + + + | Preferred Language | Unknown | + + + | Marital Status | | + + + | Yazidism Affiliation | 1077 | + + + | Race | Unknown | + + + | Ethnic Group | Unknown | + + + Author + + + | Author | [facility] | | | and [place] | + + + | Organization | [facility] | | | and [place] | + + + | Address | Unknown | + + + | Phone | Unavailable | + + + Support + + + + + | Name | Relationship | Address | Phone | + + + + + | Boo Flaherty | ECON | , [address] | | + + + + + | Edyta Pickett | ECON | Unknown | | + + + + + Care Team Providers + +------+ + | Care Fire Fighting Equipment Specialist Name | Role | Phone | + [...] + + | 11/10/ | Procedure | [facility] | | Presence of cardiac | | 2020 | visit | CARDIOLOGY [facility] | | pacemaker | | | | [address] | | | | | | [place] | | | | | | [address] | | | | | | [phone] | | | +--------+ + + + [...] | | | | | [place], [place] | | | | | | [address] | | | | | | | [...] Kearns MD : | | | 1930MRN: [id number] Primary cardiology provider: Benson | | | Meg Primary electrophysiology provider: Olesya Cuevas Device | | | project coordinator: Cozi Device type: Biventricular Battery Longevity: | | [...]
--- OUTSIDE RECORDS SUMMARY | ~2020-02-22 | XMS | Encounter Summary ---
Demographics + + + | Address | [address] | | | [place] [address] | + + + | Home Phone | | + + + | Preferred Language | Unknown | + + + | Marital Status | | + + + | Alevism Affiliation | 1077 | + + + | Race | Unknown | + + + | Ethnic Group | Unknown | + + + Author + + + | Author | [facility] | | | and [place] | + + + | Organization | [facility] | | | and [place] | + + + | Address | Unknown | + + + | Phone | Unavailable | + + + Support + + + + + | Name | Relationship | Address | Phone | + + + + + | Boo Flaherty | ECON | , [address] | | + + + + + | Edyta Pickett | ECON | Unknown | | + + + + + Care Team Providers + +------+ + | Care Barrel Racer Name | Role | Phone | + [...] Description | +--------+--------+ + + + | 05/17/ | Refill | [facility] | Benson Weaver, | Medication Refill | | 2019 | | CARDIOLOGY [facility] | MD Stu ANDERSON | | | | | [address] | [place], [place] | | | | | [place], [place] | [address] | | | | | [address] | | | | | | [phone] | | | +--------+--------+ + + + [...] | | | | | [place] | | | | | | [address] | | | | | | | | +--------+---------+ + + + documented as of this encounter Visit Diagnoses Not on filedocumented in this encounter"
--- OUTSIDE RECORDS SUMMARY | ~2020-02-22 | XMS | Encounter Summary ---
Demographics + + + | Address | [address] | | | [place] [address] | + + + | Home Phone | | + + + | Preferred Language | Unknown | + + + | Marital Status | Single | + + + | Mormon Affiliation | Unknown | + + + | Race | Unknown | + + + | Ethnic Group | Other Race | + + + Author + + + | Author | [facility] | + + + | Organization | [facility] | + + + | Address | Unknown | + + + | Phone | Unavailable | + + + Care Team Providers + +------+ + | Care Bender Machine Name | Role | Phone | + +------+ + PCP | Unavailable | + +------+ + Encounter Details +--------+ + + + + | Date | Type | Department | Care Team | Description | +--------+ + + + + | 12/30/ | Documentati | NON[facility] | Unknown . | | | 2020 | on | [...] as of this encounter Plan of Treatment Not on filedocumented as of this encounter Visit Diagnoses Not on filedocumented in this encounter"
--- OUTSIDE RECORDS SUMMARY | ~2020-02-22 | XMS | Clinical Summary ---
Demographics + + + | Address | [address] | | | [place] [address] | + + + | Home Phone | | + + + | Preferred Language | Unknown | + + + | Marital Status | | + + + | Congregation Affiliation | 1077 | + + + | Race | Unknown | + + + | Ethnic Group | Unknown | + + + Author + + + | Author | [facility] (Historical as of | | | 05-16-19) | + + + | Organization | [facility] (Historical as of | | | 05-16-19) | + + + | Address | Unknown | + + + | Phone | Unavailable | + + + Support + + + + + | Name | Relationship | Address | Phone | + + + + + | Boo Flaherty | ECON | , [address] | | + + + + + | Edyta Pickett | ECON | Unknown | | + + + + + Care Team Providers + +------+ + | Care Bioanalyst Name | Role | Phone | + +------+ + | Zackary Kearns MD | PP | | + +------+ + Allergies + [...] | Anaphylaxis | High | 07/29/20 | | | | | | 14 | | + + + + + + | Statins | Other (See Comments) | Medium | 02/29/20 | Increased liver | | | | | 17 | enzymes | + + + + + + | Sulfa Antibiotics | Rash | Medium | 02/29/20 | | | | | | 17 | | + + + + + + | Adhesive Tape | Rash | Medium | 07/29/20 | | | | | | 14 | | + + + + + + Current Medications + + +--------+---------+------+------+-------+ | Prescription | Sig. | Disp. | Refills | Star | End | Statu | | | | | | t | Date | s | | | | | | Date | | | + + +--------+---------+------+------+-------+ | levothyroxine | Take 88 mcg by mouth | | | | | Activ | | (SYNTHROID) 88 MCG | every morning | | | | | e | | tablet | before breakfast. | | | | | | + + +--------+---------+------+------+-------+ | lisinopril | Take 40 mg by mouth | | | | | Activ | | (ZESTRIL) 40 MG | daily. | | | | | e | | tablet | | | | | | | + + +--------+---------+------+------+-------+ | doxazosin | Take 2 mg by mouth | | | | | Activ | | (CARDURA) 2 MG | nightly. | | | | | e | | tablet | | | | | | | + + +--------+---------+------+------+-------+ | potassium chloride | Take 20 mEq by mouth | | | | | Activ | | SA (GERONIMO JAQUEZ) | 2 (two) times | | | | | e | | 20 MEQ tablet | daily. | | | | | | + + +--------+---------+------+------+-------+ | aspirin EC 81 MG | Take 81 mg by mouth | | | | | Activ | | EC tablet | daily with | | | | | e | | | breakfast. | | | | | | + + +--------+---------+------+------+-------+ | Calcium | Take by mouth | | | | | Activ | | Carbonate-Vit D-Min | daily. | | | | | e | | (CALCIUM 1200 PO) | | | | | | | + + +--------+---------+------+------+-------+ | furosemide (LASIX) | Take 20 mg by mouth | | | | | Activ | | 20 MG tablet | daily. | | | | | e | + + +--------+---------+------+------+-------+ | spironolactone | Take 0.5 tablets by | 30 | 1 | 01/2 | | Activ | | (ALDACTONE) 25 MG | mouth daily. | tablet | | 3/20 | | e | | tablet | | | | 19 | | | + + +--------+---------+------+------+-------+ | carvedilol (COREG) | TAKE ONE TABLET BY | 180 | 0 | 05/2 | | Activ | | 25 MG tablet | MOUTH TWICE DAILY | tablet | | 0/20 | | e | | | WITH MEALS | | | 19 | | | + + +--------+---------+------+------+-------+ Active Problems + + + | Problem | Noted Date | + + + | Paroxysmal atrial fibrillation (HCC) | 06/21/2018 | + + + + [...] + + + + | Non-ischemic cardiomyopathy (HCC) | 10/09/2017 | + + + + + | Overview: cath 10/10/17:1. Nonischemic cardiomyopathy, could | | be secondary to pacemaker-inducedcardiomyopathy.2. No significant | | coronary artery disease.3. Elevated opening pressure.4. Right | | iliac artery loop.Echo 03/08/17IMPRESSION:1. The left ventricle is | | normal in size, wall thickness moderately impaired systolic | | function EF 35-40%.2. There is paradoxical/dysynergic septal | | motion consistent with RV pacing.3. The diastolic filling pattern | | indicates impaired relaxation consistent with mild dysfunction | | (Grade I).4. The right ventricle is normal in size and | | function.5. Mild mitral regurgitation and mildly dilated left | | atrium.6. Mild tricuspid regurgitation with no pulmonary | | hypertension.7. There is no pericardial effusion. | |4. The right ventricle is normal in size and function. | |5. Mild mitral regurgitation and mildly dilated left atrium. | |6. Mild tricuspid regurgitation with no pulmonary hypertension. | |7. There is no pericardial effusion. | + + + + + | Systolic dysfunction | 10/09/2017 | + + + | SSS (sick sinus syndrome) | 07/29/2014 | + + + + + | Last Assessment & Plan: SSS/pacemaker therapy. 86yo WF, | | complains of fatigue, exertional shortness of breath, however | | denies any chest discomfort, edema, orthopnea or PND. Denies any | | palpitations, lightheadedness, or syncope. She admits that some | | of her difficulty is pain in her left knee, she ambulates with | | the assistance of a cane. Her device is stable, the rate | | histograms suggest that she is not sedentary. Was seen by PCP, | | blood pressure somewhat marginal, mild orthostasis, HCTZ was | | discontinued. Overall functional capacity has not changed | | significantly. Labs reviewed. Pacemaker stable. Tolerating | | medications. No changes in therapy. We discussed the | | possibility of coronary artery disease, if she develops symptoms | | of angina, she is willing to undergo undergo further testing. | | Will be followed clinically.Hx Pacemaker: initial implant | | 06/13/2002, replaced 11/03/2010, Medtronic ADDR01, SN: | | [id number].Last interrogation, 05/23/2016: battery at 2.77V, | | 2+years, DDD-R (60/120), device stable, A-paced 55%, V-paced | | >99%, Mode Switch <0.1%.Hx CABG: noHx PCI/stent: noLast Cath: | | naLast Echo, 02/03/2016 ([facility]): paced rhythm, LVEF 44%, | | mild LAE, pacing catheters in RA/RV, mild MR, mild TR, moderate | | PI, est systolic PAP 32-37mmHg.Last stress test, 05/31/2010: | | Adenosine Cardiolite, "normal", LVEF 65%.ECG, 02/01/2016: AV-paced | | 100%. | + + + + + | Essential hypertension with [...] night and Lasix 20 mg per day. Last | | Assessment & Plan: Hypertension, controlled, continue current | | meds at current dose (carvedilol, doxazosin, furosemide, | | lisinopril). Labs reviewed with patient.Lab, 06/01/2016: Liver | | enzymes NML, K: 3.9, BUN/Cr: 20/0.8, glu: 82 | | TSH: 1.84 | + + + + + | HLD (hyperlipidemia) | 07/29/2014 | + + + + + | Last Assessment & Plan: Hx hyperlipidemia, "statin" | | intolerant. | + + + + + | Cardiac pacemaker in situ | 07/29/2014 | + + + + + | Overview: Initial pacemaker was placed on 06/13/02 by | | [facility], and | | gen-change was preformed on 11/03/[address] David Albarran, | | MDMedtronic - Pacemaker. Model-S/N: Masha ADDYee01 - | | [id number]/28/2017Umm has a high ventricular pacing burden (100%) | | and her LV systolic function has deteriorated. A recent ejection | | fraction is 35-40%, so an upgrade to a COFOUNDER pacemaker has been | | recommended. She has class III symptoms of heart failure. The | | paced QRS duration was 190 ms on a recent ECG06/19/18:A COFOUNDER | | upgrade to a [employer] COFOUNDER pacemaker was performed in November 2017. | [...] episodes of mode switching. | + + Family History + + +------+ + | [...] 80) | | + +------+ + + Social [...] + +---------+ + | Alcohol Use | Drinks/We | oz/Week | Comments | | | ek | | | + + +---------+ + | No | 0 | 0.0 | | | | Standard | | | | | drinks or | | | | | | | | | | equivalen | | | | | t | | | + + +---------+ + + + + | Sex Assigned at | Date Recorded | | | | + + + | Not on file | | + + + Last Filed Vital Signs + + + + | Vital Sign | Reading | Time Taken | + + + + | Blood Pressure | 120/74 | 04/22/2019 1:02 PM PDT | + + + + | Pulse | 71 | 04/22/2019 1:02 PM PDT | + + + + | Temperature | 36.6 C (97.9 F) | 12/05/2017 7:16 AM PST | + + + + | Respiratory Rate | 16 | 12/05/2017 7:16 AM PST | + + + + | Oxygen Saturation | 98% | 04/22/2019 1:02 PM PDT | + + + + | Inhaled Oxygen | - | - | | Concentration | | | + + + + | Weight | 72.7 kg (160 lb 3.2 | 04/22/2019 1:02 PM PDT | | | oz) | | + + + + | Height | 160 cm (5' 3") | 04/22/2019 1:02 PM PDT | + + + + | Body Mass Index | 28.38 | 04/22/2019 1:02 PM PDT | + + + + Plan of Treatment + + + + + | Health Maintenance | Due Date | Last Done | Comments | + + + + + | Vaccine: | | | | | Dtap/Tdap/Td (1 - | 0 | | | | Tdap) | | | | + + + + + | Vaccine: Zoster (1 | | | | | of 2) | 1 | | | + + + + + | DEXA SCAN SCREENING | | | | | | 6 | | | + + + + + | Vaccine: | | | | | Pneumococcal 65+ | 6 | | | | Low/Medium Risk (1 | | | | | of 2 - PCV13) | | | | + + + + + | Vaccine: Influenza | | | | | (Season Ended) | 0 | | | + + + + + Implants + +--------+-------+ +--------+--------+--------+ | Implanted | Type | Area | Manufacture | Device | Expira | Model | | | | | r | | tion | / | | | | | | Identi | Date | Serial | | | | | | fier | | / Lot | + +--------+-------+ +--------+--------+--------+ | Quartet-12/04/2017Implanted: | Cardia | Heart | [facility] | | 08/29/ | | | Qty: 1 on 12/04/2017 by | c | | [facility] [place], | | 2020 | /[id number] | | Andrew Liang MD | Rhythm | | INC. | | | [id number] / | | | | | | | | | | | Manage | | | | | | | | ment | | | | | | + +--------+-------+ +--------+--------+--------+ | Quadra Allure Mp RfImplanted: | Cardia | Chest | [employer] | | 03/29/ | | | Qty: 1 on 12/04/2017 by | c | | [place] [place], | | 2018 | /[id number] | | Andrew Liang MD | Rhythm | | INC. | | | 28 / | | | | | | | | | | | Manage | | | | | | | | ment | | | | | | + +--------+-------+ +--------+--------+--------+ Results Not on filefrom Last 3 Months Insurance + +--------+ +--------+ + + | Payer | Benefi | Subscriber | Type | Phone | Address | | | t Plan | ID | | | | | | / | | | | | | | Group | | | | | + +--------+ +--------+ + + | [place] | [place] - | [id number] | [employer]ica | [phone] [address] [address] [place] | | HEALTHCARE | UNITED | | re | [phone] | [place] [address] | | | | | | | | | | HEALTH | | | | | | | CARE | | | | | + +--------+ +--------+ + + + +--------+ +--------+ + + | Guarantor Name | Accoun | Relation to | Date | Phone | Billing Address | | | t Type | Patient | of | | | | | | | | | | + +--------+ +--------+ + + | MARY FLAHERTY | Person | Self [birth year] Home: | [address] | | [place] | al/Fam | | 1930 | [phone] | [address] [place], | | | cathy | | | [phone] | [place] [address] | + +--------+ +--------+ + +
--- OUTSIDE RECORDS SUMMARY | ~2020-02-22 | XMS | Encounter Summary ---
Demographics + + + | Address | [address] | | | [place] [address] | + + + | Home Phone | | + + + | Preferred Language | Unknown | + + + | Marital Status | | + + + | Restorationism Affiliation | 1077 | + + + | Race | Unknown | + + + | Ethnic Group | Unknown | + + + Author + + + | Author | [facility] | | | and [place] | + + + | Organization | [facility] | | | and [place] | + + + | Address | Unknown | + + + | Phone | Unavailable | + + + Support + + + + + | Name | Relationship | Address | Phone | + + + + + | Boo Flaherty | ECON | , [address] | | + + + + + | Edyta Pickett | ECON | Unknown | | + + + + + Care Team Providers + +------+ + | Care Agricultural And Forestry Supervisor Name | Role | Phone | + [...] + + | 02/08/ | Procedure | [facility] | | Cardiac pacemaker in | | 2020 | visit | CARDIOLOGY [place] | | situ (Primary Dx) | | | | [address] | | | | | | [place] | | | | | | [address] | | | | | | [phone] | | | +--------+ + + + [...] | 05/18/ | Office | Cardiology | Bneson Weaver, | | | 2019 | Visit | | MD Stu ANDERSON | | | | | | [facility] [facility] | | | | | | [address] | | | | | | | [...] Kearns MD : | | | 1930MRN: [id number] Primary cardiology provider: Benson | | | [facility] Primary electrophysiology provider: Andrew Liang Device | | | sr. logistics analyst: PRX Device type: Biventricular Battery Longevity: | | [...]
--- OUTSIDE RECORDS SUMMARY | ~2020-02-22 | XMS | Clinical Summary ---
Demographics + + + | Address | [address] | | | [place] [address] | + + + | Home Phone | | + + + | Preferred Language | Unknown | + + + | Marital Status | | + + + | Mandaen Affiliation | 1077 | + + + | Race | Unknown | + + + | Ethnic Group | Unknown | + + + Author + + + | Author | [facility] | | | and [place] | + + + | Organization | [facility] | | | and [place] | + + + | Address | Unknown | + + + | Phone | Unavailable | + + + Support + + + + + | Name | Relationship | Address | Phone | + + + + + | Boo Flaherty | ECON | , [address] | | + + + + + | Edyta Pickett | ECON | Unknown | | + + + + + Care Team Providers + +------+ + | Care Php Website Developer Name | Role | Phone | + [...] on 06/13/02 by | | Carrol Mauricio, [facility], and | | gen-change was preformed on 11/03/[address] David Albarran MD | | Medtronic - Pacemaker. Model-S/N: Adapta ADDR01 - [id number]. | | 11/28/2017 She has a high ventricular pacing burden (100%) and her | | LV systolic function has deteriorated. A recent ejection fraction | | is 35-40%, so an upgrade to a BUSINESS PERFORMANCE SPECIALIST pacemaker has been | | recommended. She has class III symptoms of heart failure. The | | paced QRS duration was 190 ms on a recent ECG 06/19/18: A BUSINESS PERFORMANCE SPECIALIST | | upgrade to a [employer] BUSINESS PERFORMANCE SPECIALIST pacemaker was performed in November 2017. | [...] | | | | | | [facility] [facility] | | | | | | [address] | | | | | | | [...] | + +--------+------+ +--------+--------+--------+ | Implant Id: [id number] - | Cardia | | [facility] [...] | + +--------+------+ +--------+--------+--------+ | Implant Id: [id number] - Quadra | Cardia | | [facility] | | 03/29/ | | | Lisa Mp RfImplanted: Qty: 1 | c | | MEDICAL - | | 2018 | /[id number] | | on 12/04/2017 by Andrew Liang [...] Kearns MD : | | | 1930MRN: [id number] Primary cardiology provider: Benson | | | [facility] Primary electrophysiology provider: Andrew Liang Device | | | director agency & strategic partnerships: [employer] Device type: Biventricular Battery Longevity: | | [...] | | | + +--------+ +--------+-------+---------+--------+ | [facility] | [facility] | [phone] | 09/30/19 | | | Medica | [...] | | | [address] (Home) | [place] [address] | + +--------+ +--------+ + + Advance Directives + + + + + | Type | Date Recorded | Patient | Explanation | | | | Director Of Public Works | | + + + + + | Power of | | | | | Veterinarian Assistant | | | | + + + + + | Advance | | | | | Directive | | | | + + + + +
--- OUTSIDE RECORDS SUMMARY | ~2020-02-22 | XMS | Encounter Summary ---
Demographics + + + | Address | [address] | | | [place] [address] | + + + | Home Phone | | + + + | Preferred Language | Unknown | + + + | Marital Status | Single | + + + | Gnosticist Affiliation | Unknown | + + + | Race | Unknown | + + + | Ethnic Group | Other Race | + + + Author + + + | Author | [facility] | + + + | Organization | [facility] | + + + | Address | Unknown | + + + | Phone | Unavailable | + + + Care Team Providers + +------+ + | Care Lecturer In Marketing Name | Role | Phone | + +------+ + PCP | Unavailable | + +------+ + Encounter Details +--------+ + + + + | Date | Type | Department | Care Team | Description | +--------+ + + + + | 11/29/ | Documentati | NON-[facility] | Unknown . | | | 2017 | on | Department | | | [...]
--- OUTSIDE RECORDS SUMMARY | ~2020-02-22 | XMS | Encounter Summary ---
Demographics + + + | Address | [address] | | | [place] [address] | + + + | Home Phone | | + + + | Preferred Language | Unknown | + + + | Marital Status | | + + + | Yarsani Affiliation | 1077 | + + + | Race | Unknown | + + + | Ethnic Group | Unknown | + + + Author + + + | Author | [facility] | | | and [place] | + + + | Organization | [facility] | | | and [place] | + + + | Address | Unknown | + + + | Phone | Unavailable | + + + Support + + + + + | Name | Relationship | Address | Phone | + + + + + | Boo Flaherty | ECON | , [address] | | + + + + + | Edyta Pickett | ECON | Unknown | | + + + + + Care Team Providers + +------+ + | Care Housekeeping/Laundry Supervisor Name | Role | Phone | + +------+ + | Zackary Kearns MD | PCP | | + +------+ + Encounter Details +--------+ + + + + | Date | Type | Department | Care Team | Description | +--------+ + + + + | 11/03/ | Orders Only | [facility] | David Albarran MD | | | 2010 | | [facility] | | | | | | CLINICAL LABORATORY | | | | | | [address] | | | | | | [place], [place] | | | | | | [address] | | | | | | [phone] | | | +--------+ + + + [...] | | | | | [place] | | | | | | [address] | | | | | | | [...] EXTERNAL LAB | | Testing performed at [facility];[address] [place] [address];[place] [address] MRSA PCR | | | NEGATIVE Testing performed at | | | [address];[place] [address] | | + + + + +---------+ + + | Performing | Address | City/State/Zipcode | Phone Number | | Organization | | | | + +---------+ + + | EXTERNAL LAB | | | | + +---------+ + + documented in this encounter Visit Diagnoses Not on filedocumented in this encounter"
--- OUTSIDE RECORDS SUMMARY | ~2020-02-22 | XMS | Encounter Summary ---
Demographics + + + | Address | [address] | | | [place] [address] | + + + | Home Phone | | + + + | Preferred Language | Unknown | + + + | Marital Status | Single | + + + | Mosque Affiliation | Unknown | + + + | Race | Unknown | + + + | Ethnic Group | Other Race | + + + Author + + + | Author | [facility] | + + + | Organization | [facility] | + + + | Address | Unknown | + + + | Phone | Unavailable | + + + Care Team Providers + +------+ + | Care Etl Consultant Name | Role | Phone | + [...] [address] | | | | | | [facility] | | | | | | and Healing, | | | | | | Building [address], 5th | | | | | | Floor [place], [place] | | | | | | [address] | | | | | | [phone] | | | +--------+ + + + [...] | | | | | white-diez skin, [id number]. | | | | | | The [...] [facility] | [address] | [place] [address] | | | DERMATOPATHOLOGY | [address] | | | + + + + + documented in this encounter Visit Diagnoses + + | Diagnosis | + + | Other viral warts | + + documented in this encounter
--- OUTSIDE RECORDS SUMMARY | ~2020-02-22 | XMS | Encounter Summary ---
Demographics + + + | Address | [address] | | | [place] [address] | + + + | Home Phone | | + + + | Preferred Language | Unknown | + + + | Marital Status | | + + + | Confucianist Affiliation | 1077 | + + + | Race | Unknown | + + + | Ethnic Group | Unknown | + + + Author + + + | Author | [facility] | | | and [place] | + + + | Organization | [facility] | | | and [place] | + + + | Address | Unknown | + + + | Phone | Unavailable | + + + Support + + + + + | Name | Relationship | Address | Phone | + + + + + | Boo Flaherty | ECON | , [address] | | + + + + + | Edyta Pickett | ECON | Unknown | | + + + + + Care Team Providers + +------+ + | Care Manager [place] Name | Role | Phone | + +------+ + | Zackary Kearns MD | PCP | | + +------+ + Encounter Details +--------+ + + + + | Date | Type | Department | Care Team | Description | +--------+ + + + + | 07/29/ | Orders Only | [facility] | Conversion | | | 2013 | | CONVERSION [address] | Transaction, | | | | | [address] | Provider Unknown | | | | | [place], [place] | [phone] | | | | | [address] | | | | | | [phone] | | | +--------+ + + + [...] [place] | | | | | | [address] | | | | | | | | +--------+---------+ + + + documented as of this encounter Visit Diagnoses Not on filedocumented in this encounter"
--- OUTSIDE RECORDS SUMMARY | ~2020-02-22 | XMS | Encounter Summary ---
Demographics + + + | Address | [address] | | | [place] [address] | + + + | Home Phone | | + + + | Preferred Language | Unknown | + + + | Marital Status | | + + + | Orthodox Affiliation | 1077 | + + + | Race | Unknown | + + + | Ethnic Group | Unknown | + + + Author + + + | Author | [facility] | | | and [place] | + + + | Organization | [facility] | | | and [place] | + + + | Address | Unknown | + + + | Phone | Unavailable | + + + Support + + + + + | Name | Relationship | Address | Phone | + + + + + | Boo Flaherty | ECON | , [address] | | + + + + + | Edyta Pickett | ECON | Unknown | | + + + + + Care Team Providers + +------+ + | Care General Lithographic Worker Name | Role | Phone | + [...] Provider Unknown | | | | | [place], [place] | [phone] | | | | | [address] | | | | | | [phone] | | | +--------+ + + + [...] [place] | | | | | | [place] | | | | | | [address] | | | | | | | | +--------+---------+ + + + documented as of this encounter Visit Diagnoses Not on filedocumented in this encounter"
--- OUTSIDE RECORDS SUMMARY | ~2020-02-22 | XMS | Encounter Summary ---
Demographics + + + | Address | [address] | | | [place] [address] | + + + | Home Phone | | + + + | Preferred Language | Unknown | + + + | Marital Status | | + + + | Mu-Ism Affiliation | 1077 | + + + | Race | Unknown | + + + | Ethnic Group | Unknown | + + + Author + + + | Author | [facility] | | | and [place] | + + + | Organization | [facility] | | | and [place] | + + + | Address | Unknown | + + + | Phone | Unavailable | + + + Support + + + + + | Name | Relationship | Address | Phone | + + + + + | Boo Flaherty | ECON | , [address] | | + + + + + | Edytakrystle Pickett | ECON | Unknown | | + + + + + Care Team Providers + +------+ + | Care Flap Presser Name | Role | Phone | + +------+ + PCP | Unavailable | + +------+ + Encounter Details +--------+ + + + + | Date | Type | Department | Care Team | Description | +--------+ + + + + | 10/10/ | Hospital | [facility] | Conversion | Essential | | 2018 | Encounter | [facility]ICAL CENTER | Transaction, | hypertension; | | | | CLINICAL DECISION | Provider Unknown | Systolic | | | | [address] | [phone] | dysfunction; | | | | [place], [place] | | Presence of cardiac | | | | [address] | [place], [place], | pacemaker | | | | [phone] | MD Stu ANDERSON | | | | | | [place], [place] | | | | | | [address] | | | | | | | [...] Date of Service: 10/10/17 153 Status: Signed Drafter Engineering: Marcia Earl RN (Registered Nurse) Groin site remains in tact, no new drainage on bandage. CMS in tact. Pt given discharge ins tructions with all questions addressed, Pt has family to drive her home. Left the unit in st able condition via wheelchair. onver aziza Transaction, Provider Unknown - 10/10/2017 3:05 PM PST Nurse Progress Note by Marcia Earl RN at 10/10/17 1501 Author: Marcia Earl RN Service: (none) Author Type: Registered Nurse Filed: 10/10/17 1542 Date of Service: 10/10/171504 Status: Addendum Drafter Engineering: Marcia Earl RN (Registered Nurse) Related Notes: [...] 1758 Date of Service: 10/09/171754 Status: Signed Drafter Engineering: Erasto Quintero RN (Registered Nurse) [facility] Pre-Procedure Telephone Call Type of Procedure [facility] Spoke with: Patient Director Voice needed: No Kiswahili No Puerto Rican No Other: Director Voice arranged: No Arrival Time: 0900 Check In Location: Main loby Ride and Caregiver: Phone Number for Ride/Caregiver: NPO from: 8hrs prior Diabetic: No If Yes are they on Glucophage/Metformin No Date of last Dose {Blank single:[id number]::"NA" Is patient on Anticoagulants No Date of [...] | | | | | [place] | | | | | | [address] | | | | | | | [...] | | | Basophils | performed at [facility];[address] | LAB | | | | [address];[place], [place] | | | | | | [address] | | | | + + + [...] | | | | | | at [facility] [address] | | | | | | [address];[place] [address] | | | | + + + [...]
--- OUTSIDE RECORDS SUMMARY | ~2020-02-22 | XMS | Encounter Summary ---
Demographics + + + | Address | [address] | | | [place] [address] | + + + | Home Phone | | + + + | Preferred Language | Unknown | + + + | Marital Status | Single | + + + | Latter Day Affiliation | Unknown | + + + | Race | Unknown | + + + | Ethnic Group | Other Race | + + + Author + + + | Author | [facility] | + + + | Organization | [facility] | + + + | Address | Unknown | + + + | Phone | Unavailable | + + + Care Team Providers + +------+ + | Care Hearing Therapist Name | Role | Phone | + [...]
--- OUTSIDE RECORDS SUMMARY | ~2020-02-22 | XMS | Encounter Summary ---
Demographics + + + | Address | [address] | | | [place] [address] | + + + | Home Phone | | + + + | Preferred Language | Unknown | + + + | Marital Status | | + + + | Yazidi Affiliation | 1077 | + + + | Race | Unknown | + + + | Ethnic Group | Unknown | + + + Author + + + | Author | [facility] | | | and [place] | + + + | Organization | [facility] | | | and [place] | + + + | Address | Unknown | + + + | Phone | Unavailable | + + + Support + + + + + | Name | Relationship | Address | Phone | + + + + + | Boo Flaherty | ECON | , [address] | | + + + + + | Edyta Pickett | ECON | Unknown | | + + + + + Care Team Providers + +------+ + | Care Contract Administrator Name | Role | Phone | + [...] + + | 01/13/ | Refill | [facility] | Benson Weaver, | Medication Refill | | 2019 | | CARDIOLOGY [place] | [address] | | | | | [address] | [place], [place] | | | | | [place] [address] | [address] | | | | | [place] | | | | | | [address] | | | | | | [phone] | | | +--------+--------+ + + + [...] [place] | | | | | | [address] | | | | | | | | +--------+---------+ + + + documented as of this encounter Visit Diagnoses Not on filedocumented in this encounter"
--- OUTSIDE RECORDS SUMMARY | ~2020-02-22 | XMS | Encounter Summary ---
Demographics + + + | Address | [address] | | | [place] [address] | + + + | Home Phone | | + + + | Preferred Language | Unknown | + + + | Marital Status | | + + + | Zoroastrianism Affiliation | 1077 | + + + | Race | Unknown | + + + | Ethnic Group | Unknown | + + + Author + + + | Author | [facility] | | | and [place] | + + + | Organization | [facility] | | | and [place] | + + + | Address | Unknown | + + + | Phone | Unavailable | + + + Support + + + + + | Name | Relationship | Address | Phone | + + + + + | Boo Flaherty | ECON | , [address] | | + + + + + | Edyta Pickett | ECON | Unknown | | + + + + + Care Team Providers + +------+ + | Care Clip Coater Name | Role | Phone | + +------+ + | Zackary Kearns MD | PCP | | + +------+ + Encounter Details +--------+ + + + + | Date | Type | Department | Care Team | Description | +--------+ + + + + | 05/20/ | Orders Only | [facility] | Benson Weaver, | | | 2019 | | CARDIOLOGY [place] | [address] | | | | | [address] | [place], [place] | | | | | [place], [place] | [address] | | | | | [address] | | | | | | [phone] | | | +--------+ + + + [...] [place] | | | | | | [address] | | | | | | | | +--------+---------+ + + + documented as of this encounter Visit Diagnoses Not on filedocumented in this encounter"
--- OUTSIDE RECORDS SUMMARY | ~2020-02-22 | XMS | Encounter Summary ---
Demographics + + + | Address | [address] | | | [place] [address] | + + + | Home Phone | | + + + | Preferred Language | Unknown | + + + | Marital Status | | + + + | Uatsdin Affiliation | 1077 | + + + | Race | Unknown | + + + | Ethnic Group | Unknown | + + + Author + + + | Author | [facility] | | | and [place] | + + + | Organization | [facility] | | | and [place] | + + + | Address | Unknown | + + + | Phone | Unavailable | + + + Support + + + + + | Name | Relationship | Address | Phone | + + + + + | Boo Flaherty | ECON | , [address] | | + + + + + | Edyta Pickett | ECON | Unknown | | + + + + + Care Team Providers + +------+ + | Care Bridal Gown Fitter Name | Role | Phone | + [...] + + | 08/11/ | Procedure | [facility] | | Cardiac pacemaker in | | 2019 | visit | CARDIOLOGY [place] | | situ (Primary Dx) | | | | [address] | | | | | | [place] | | | | | | [address] | | | | | | [phone] | | | +--------+ + + + [...] | | | | | [place], [place] | | | | | | [address] | | | | | | | [...] Kearns MD : | | | 1930MRN: [id number] Primary cardiology provider: Benson | | | Meg Primary electrophysiology provider: Andrew Liang Device | | | replenishment specialist: [employer] Device type: Biventricular Battery Longevity: 7.7 | [...] [place] PCP: Zackary Kearns MD : 1930MRN: [id number] Primary cardiology | | provider: Benson Weaver Primary electrophysiology provider: Andrew Liang Device | | replenishment specialist: AbbottDevice type: BiventricularBattery Longevity: 7.7 years RA [...]
--- OUTSIDE RECORDS SUMMARY | ~2020-02-22 | XMS | Encounter Summary ---
Demographics + + + | Address | [address] | | | [place] [address] | + + + | Home Phone | | + + + | Preferred Language | Unknown | + + + | Marital Status | | + + + | Confucianism Affiliation | 1077 | + + + | Race | Unknown | + + + | Ethnic Group | Unknown | + + + Author + + + | Author | [facility] | | | and [place] | + + + | Organization | [facility] | | | and [place] | + + + | Address | Unknown | + + + | Phone | Unavailable | + + + Support + + + + + | Name | Relationship | Address | Phone | + + + + + | Boo Flaherty | ECON | , [address] | | + + + + + | Edyta Pickett | ECON | Unknown | | + + + + + Care Team Providers + +------+ + | Care Director And Professor Name | Role | Phone | + +------+ + PCP | Unavailable | + +------+ + Encounter Details +--------+ + + + + | Date | Type | Department | Care Team | Description | +--------+ + + + + | 11/03/ | Hospital | [facility] | Abdulaziz Albarran MD | Fitting and | | 2010 | Encounter | [facility] | | adjustment of | | | | CLINICAL DECISION | | cardiac pacemaker | | | | [address] | | | | | | [place], [place] | | | | | | [address] | | | | | | [phone] | | | +--------+ + + + [...] | | | | | [place] [facility] [place] | | | | | | [address] | | | | | | | [...] Performed At | + + + | [facility] [address] Ph: | | | Patient Name: SHILA FLAHERTY V Date of : | | | 1930 Medical Record: [id number] Account: [id number] | | | Exam Date/Time: 11/03/2010 13:30 [...] Medtronic, | | | product #ADDR01, serial #[id number]. PHYSIOLOGIC DATA The right | | | atrial lead was a Medtronic lead with a serial #[id number]. The | | | sensing threshold on the right atrial lead was 1.3 millivolts. The | | | impedance was 490 ohms and the pacing threshold was 0.9 volts with a | | | pulse width of 0.5 milliseconds. The right ventricular lead was a | | | Medtronic, product #4023, serial #[id number]. The sensing threshold | | | was [...] DT: | | | 11/04/2010 09:27 P //[id number]/ Read by ABDULAZIZ ALBARRAN MD | | | 11/04/2010 06:59 P Electronically signed by ABDULAZIZ ALBARRAN MD on | | | 11/21/2010 8:23 PM | | + + + + + | Procedure Note | + + | Lenny Vazquez Conversion - 05/23/2019 1:39 PM PDT | | [facility] | | [facility] [address] | | | | | | Patient Name: SHILA FLAHERTY V | | Date of : 1930 | | Medical Record: [id number] | | Account: [id number] | | | | | | Exam [...] | | TECHNICAL DATAPulse generator is a [employer], product #ADDR01, serial | | #[id number]. | | | | PHYSIOLOGIC DATA | | The right atrial lead was a Medtronic lead with a serial #[id number]. | | The sensing threshold on the right atrial lead was 1.3 millivolts. The | | impedance was 490 ohms and the pacing threshold was 0.9 volts with a | | pulse width of 0.5 milliseconds. | | | | The right ventricular lead was a [employer], product #4023, serial | | #[id number]. The sensing threshold was 9.2 millivolts. The [...] | P | | P | | //[id number]/ | | | | Read by | | ABDULAZIZ ALBARRAN MD 11/04/2010 06:59 P | | | | | + + documented in this encounter Visit Diagnoses + + | Diagnosis | + + | Fitting and adjustment of cardiac pacemaker | + + documented in this encounter"
--- OUTSIDE RECORDS SUMMARY | ~2020-02-22 | XMS | Encounter Summary ---
Demographics + + + | Address | [address] | | | [place] [address] | + + + | Home Phone | | + + + | Preferred Language | Unknown | + + + | Marital Status | | + + + | Yazidi Affiliation | 1077 | + + + | Race | Unknown | + + + | Ethnic Group | Unknown | + + + Author + + + | Author | [facility] | | | and [place] | + + + | Organization | [facility] | | | and [place] | + + + | Address | Unknown | + + + | Phone | Unavailable | + + + Support + + + + + | Name | Relationship | Address | Phone | + + + + + | Boo Flaherty | ECON | , [address] | | + + + + + | Edyta Pickett | ECON | Unknown | | + + + + + Care Team Providers + +------+ + | Care Orchard Hand Name | Role | Phone | + +------+ + | Zackary Kearns MD | PCP | | + +------+ + Encounter Details +--------+ + + + + | Date | Type | Department | Care Team | Description | +--------+ + + + + | 10/22/ | Orders Only | [facility] | Benson Weaver, | | | 2018 | | CARDIOLOGY [place] | [address] | | | | | [address] | [place], [place] | | | | | [place], [place] | [address] | | | | | [address] | | | | | | [phone] | | | +--------+ + + + [...] 2019 | Visit | | MD Stu ADNERSON | | | | | | [place] | | | | | | [address] | | | | | | | | +--------+---------+ + + + documented as of this encounter Visit Diagnoses Not on filedocumented in this encounter"
--- OUTSIDE RECORDS SUMMARY | ~2020-02-22 | XMS | Encounter Summary ---
Demographics + + + | Address | [address] | | | [place] [address] | + + + | Home Phone | | + + + | Preferred Language | Unknown | + + + | Marital Status | | + + + | Presybeterian Affiliation | 1077 | + + + | Race | Unknown | + + + | Ethnic Group | Unknown | + + + Author + + + | Author | [facility] | | | and [place] | + + + | Organization | [facility] | | | and [place] | + + + | Address | Unknown | + + + | Phone | Unavailable | + + + Support + + + + + | Name | Relationship | Address | Phone | + + + + + | Boo Flaherty | ECON | , [address] | | + + + + + | Edyta Pickett | ECON | Unknown | | + + + + + Care Team Providers + +------+ + | Care Tire Sorter Name | Role | Phone | + +------+ + | Zackary Kearns MD | PCP | | + +------+ + Encounter Details +--------+ + + + + | Date | Type | Department | Care Team | Description | +--------+ + + + + | 11/03/ | Orders Only | [facility] | David Albarran MD | | | 2010 | | [facility] | | | | | | CLINICAL LABORATORY | | | | | | [address] | | | | | | [place], [place] | | | | | | [address] | | | | | | [phone] | | | +--------+ + + + [...] | | | | | [place] | | | | | | [address] | | | | | | | [...] EXTERNAL LAB | | Testing performed at [facility];[address] [place] [address];[place] [address] MRSA PCR | | | NEGATIVE Testing performed at | | | [address];[place] [address] | | + + + + +---------+ + + | Performing | Address | City/State/Zipcode | Phone Number | | Organization | | | | + +---------+ + + | EXTERNAL LAB | | | | + +---------+ + + documented in this encounter Visit Diagnoses Not on filedocumented in this encounter"
--- OUTSIDE RECORDS SUMMARY | ~2020-02-22 | XMS | Encounter Summary ---
Demographics + + + | Address | [address] | | | [place] [address] | + + + | Home Phone | | + + + | Preferred Language | Unknown | + + + | Marital Status | | + + + | Tenriism Affiliation | 1077 | + + + | Race | Unknown | + + + | Ethnic Group | Unknown | + + + Author + + + | Author | [facility] | | | and [place] | + + + | Organization | [facility] | | | and [place] | + + + | Address | Unknown | + + + | Phone | Unavailable | + + + Support + + + + + | Name | Relationship | Address | Phone | + + + + + | Boo Flaherty | ECON | , [address] | | + + + + + | Edyta Pickett | ECON | Unknown | | + + + + + Care Team Providers + +------+ + | Care Cow Rider Name | Role | Phone | + [...] + + | 11/18/ | Office | [facility] | Benson Abel, | Essential | | 2020 | Visit | CARDIOLOGY [place] | [address] | hypertension with | | | | [address] | [place], [place] | goal blood pressure | | | | [address] [place] [address] | [address] | less than 130/80 | | | | [place] | | (Primary Dx); | | | | [address] | | 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 Still involved in the buddhist and independent in her daily needs. Denies [...] implant 06/13/2002, replaced 11/03/2010, Medtronic ADDR01, SN: [id number]. 11/28/2017 [employer] model [id number], serial number [id number] permanent pacemaker. ASSESSMENT: Patient is 89 y.o. [...] [place] | | | | | | [address] | | | | | | | [...]
--- OUTSIDE RECORDS SUMMARY | ~2020-02-22 | XMS | Encounter Summary ---
Demographics + + + | Address | [address] | | | [place] [address] | + + + | Home Phone | | + + + | Preferred Language | Unknown | + + + | Marital Status | Single | + + + | Christianity Affiliation | Unknown | + + + | Race | Unknown | + + + | Ethnic Group | Other Race | + + + Author + + + | Author | [facility] | + + + | Organization | [facility] | + + + | Address | Unknown | + + + | Phone | Unavailable | + + + Care Team Providers + +------+ + | Care Underwriting Clerks Supervisor Name | Role | Phone | [...]
--- OUTSIDE RECORDS SUMMARY | ~2020-02-22 | XMS | Encounter Summary ---
Demographics + + + | Address | [address] | | | [place] [address] | + + + | Home Phone | | + + + | Preferred Language | Unknown | + + + | Marital Status | Single | + + + | Jainism Affiliation | Unknown | + + + | Race | Unknown | + + + | Ethnic Group | Other Race | + + + Author + + + | Author | [facility] | + + + | Organization | [facility] | + + + | Address | Unknown | + + + | Phone | Unavailable | + + + Care Team Providers + +------+ + | Care Wall Worker Name | Role | Phone | + +------+ + PCP | Unavailable | + +------+ + Encounter Details +--------+ + + + + | Date | Type | Department | Care Team | Description | +--------+ + + + + | 09/20/ | Hospital | Dermatopathology | | | | 2016 | Encounter | [address] | | | | | | Mailcode: CH16D | | | | | | [facility] | | | | | | and Healing, | | | | | | Building [address], [address] | | | | | | Floor [place], [place] | | | | | | [address] | | | | | | [phone] | | | +--------+ + + + [...] + | DERM PATHOLOGY | Routin | 09/20/2016 | Actinic keratosis | Results for this | | | e | | | procedure are in the | | | | | | results section. | + +--------+ + + + documented in this encounter Results DERM PATHOLOGY (09/20/2016) + + + + + + | Component | Value | Ref Range | Performed | Pathologist | | | | | At | Signature | + + + + + + | DERMATOPATH | SOURCE OF SPECIMEN:A Rt. | | [facility] | | | OLOGY(WET | melolabial crease, | | DERMATOPATH | | | MNT) | shave biopsy | | OLOGY | | | | CLINICAL DESCRIPTION:9 x | | | | | | 7 mm hyperkeratotic | | | | | | pink plaque; r/o NMSC. | | | | | | GROSS | | | | | | DESCRIPTION:Received in | | | | | | formalin is a specimen | | | | | | labeled Flaherty, | | | | | | Mary:A: Specimen is | | | | | | labeled "R melolabial | | | | | | crease" and consists of | | | | | | an irregularshave of | | | | | | scaly white-diez skin, | | | | | | [id number]. The surgical | | | | | | margin is inked | | | | | | black;the tissue is | | | | | | entirely submitted in | | | | | | cassette A1. | | | | | | MICROSCOPIC | | | | | | DESCRIPTION:Emanating | | | | | | from the undersurface of | | | | | | the epidermis are buds | | | | | | of cells withlarge, | | | | | | hyperchromatic, | | | | | | pleomorphic nuclei and | | | | | | scant eosinophilic | | | | | | cytoplasm,which spare | | | | | | the adnexal epithelium. 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 | | | | | | KPW:jb09/25/16 My | | | | | | [...] diagnosis. | | | | | | Rendering Diagnostician: | | | | | | Kyle Acevedo | | | | | | JonasPathologistElectroni | | | | | | alfredo Signed 09/26/2016 | | | | | | 4:50PM | | | | + + + [...] | + + + + + | [facility] | [address] | [place] [address] | | | DERMATOPATHOLOGY | [address] | | | + + + + + documented in this encounter Visit Diagnoses + + | Diagnosis | + + | Actinic keratosis | + + documented in this encounter
--- OUTSIDE RECORDS SUMMARY | ~2020-02-22 | XMS | Encounter Summary ---
Demographics + + + | Address | [address] | | | [place] [address] | + + + | Home Phone | | + + + | Preferred Language | Unknown | + + + | Marital Status | | + + + | Baptism Affiliation | 1077 | + + + [...] | Boo Flaherty | ECON | , [address] | | + + + + + | Edyta Pickett | ECON | Unknown | | + + + + + Care Team Providers + +------+ + | Care Mold Sheet Cleaner Name | Role | Phone | + [...] Provider Unknown | | | | | [place], [place] | [phone] | | | | | [address] | | | | | | [phone] | | | +--------+ + + + [...] [place] | | | | | | [address] | | | | | | | | +--------+---------+ + + + documented as of this encounter Visit Diagnoses Not on filedocumented in this encounter"
--- OUTSIDE RECORDS SUMMARY | ~2020-02-22 | XMS | Encounter Summary ---
Demographics + + + | Address | [address] | | | [place] [address] | + + + | Home Phone | | + + + | Preferred Language | Unknown | + + + | Marital Status | | + + + | Amish Affiliation | 1077 | + + + | Race | Unknown | + + + | Ethnic Group | Unknown | + + + Author + + + | Author | [facility] | | | and [place] | + + + | Organization | [facility] | | | and [place] | + + + | Address | Unknown | + + + | Phone | Unavailable | + + + Support + + + + + | Name | Relationship | Address | Phone | + + + + + | Boo Flaherty | ECON | , [address] | | + + + + + | Edytakrystle Pickett | ECON | Unknown | | + + + + + Care Team Providers + +------+ + | Care Gas Appliance Installer Name | Role | Phone | + +------+ + PCP | Unavailable | + +------+ + Encounter Details +--------+ + + + + | Date | Type | Department | Care Team | Description | +--------+ + + + + | 06/13/ | Hospital | [facility] | Michael Cornelius | [address] | | 2001 - | Encounter | [facility] | [address] | | | | | CLINICAL DECISION | [address] [place], [place] | | | 06/14/ | | [address] | [address] | | | 2001 | | [place], [place] | | | | | | [address] | | | | | | [phone] | | | +--------+ + + + [...] [place] | | | | | | [address] | | | | | | | | +--------+---------+ + + + documented as of this encounter Visit Diagnoses + + | Diagnosis | + + | Trifascicular block | + + documented in this encounter"
--- OUTSIDE RECORDS SUMMARY | ~2020-02-22 | XMS | Encounter Summary ---
Demographics + + + | Address | [address] | | | [place] [address] | + + + | Home Phone | | + + + | Preferred Language | Unknown | + + + | Marital Status | Single | + + + | Church Affiliation | Unknown | + + + [...] Team Providers + +------+ + | Care Firefighter Marine Name | Role | Phone | + [...] [facility] | | | | | | [facility] | | | | | | and Healing, | | | | | | Building [address]th | | | | | | Floor [place], [place] | | | | | | [address] | | | | | | [phone] | | | +--------+ + + + [...] | | | | | white-diez skin, [id number]. | | | | | | The [...] [facility] | [address] | [place] [address] | | | DERMATOPATHOLOGY | [address] | | | + + + + + documented in this encounter Visit Diagnoses + + | Diagnosis | + + | Other viral warts | + + documented in this encounter
--- OUTSIDE RECORDS SUMMARY | ~2020-02-22 | XMS | Encounter Summary ---
Demographics + + + | Address | [address] | | | [place] [address] | + + + | Home Phone | | + + + | Preferred Language | Unknown | + + + | Marital Status | | + + + | Judaism Affiliation | 1077 | + + + | Race | Unknown | + + + | Ethnic Group | Unknown | + + + Author + + + | Author | [facility] | | | and [place] | + + + | Organization | [facility] | | | and [place] | + + + | Address | Unknown | + + + | Phone | Unavailable | + + + Support + + + + + | Name | Relationship | Address | Phone | + + + + + | Boo Flaherty | ECON | , [address] | | + + + + + | Edytakrystle Pickett | ECON | Unknown | | + + + + + Care Team Providers + +------+ + | Care Anode Adjuster Name | Role | Phone | + +------+ + PCP | Unavailable | + +------+ + Encounter Details +--------+ + + + + | Date | Type | Department | Care Team | Description | +--------+ + + + + | 06/13/ | Hospital | [facility] | Michael Cornelius | [address] | | 2001 - | Encounter | [facility] | [address] | | | | | CLINICAL DECISION | [address] [place], [place] | | | 06/14/ | | [address] | [address] | | | 2001 | | [place], [place] | | | | | | [address] | | | | | | [phone] | | | +--------+ + + + [...] [place] | | | | | | [address] | | | | | | | | +--------+---------+ + + + documented as of this encounter Visit Diagnoses + + | Diagnosis | + + | Trifascicular block | + + documented in this encounter"
--- OUTSIDE RECORDS SUMMARY | ~2020-02-22 | XMS | Clinical Summary ---
Demographics + + + | Address | [address] | | | [place] [address] | + + + | Home Phone | | + + + | Preferred Language | Unknown | + + + | Marital Status | | + + + | Sabianism Affiliation | 1077 | + + + | Race | Unknown | + + + | Ethnic Group | Unknown | + + + Author + + + | Author | [facility] (Historical as of | | | 05-16-19) | + + + | Organization | [facility] (Historical as of | | | 05-16-19) | + + + | Address | Unknown | + + + | Phone | Unavailable | + + + Support + + + + + | Name | Relationship | Address | Phone | + + + + + | Boo Flaherty | ECON | , [address] | | + + + + + | Edyta Pickett | ECON | Unknown | | + + + + + Care Team Providers + +------+ + | Care Trouble Tracer Name | Role | Phone | + [...] replaced 11/03/2010, Medtronic ADDR01, SN: | | [id number].Last interrogation, 05/23/2016: battery at 2.77V, | | [...] Pacemaker. Model-S/N: Masha ADDYee01 - | | [id number]/[id number] has a high ventricular pacing burden (100%) | | and her LV systolic function has deteriorated. A recent ejection | | fraction is 35-40%, so an upgrade to a PLASTER MACHINE OPERATOR pacemaker has been | | recommended. She has class III symptoms of heart failure. The | | paced QRS duration was 190 ms on a recent ECG06/19/18:A PLASTER MACHINE OPERATOR | | upgrade to a [employer] PLASTER MACHINE OPERATOR pacemaker was performed in November 2017. | [...] | [facility] [place], | | 2018 | /[address] | | Andrew Liang MD | Rhythm [...] +--------+ +--------+ + + | [place] | [place] - | [phone] | [facility] | [phone] [address] [address] [place] | | [facility]ARE | [place] | | re | [address] | [place] [address] | | | | | | | [...] cathy | | | [address]14 | [place] [address] | + +--------+ +--------+ + +
--- OUTSIDE RECORDS SUMMARY | ~2020-02-22 | XMS | Encounter Summary ---
Demographics + + + | Address | [address] | | | [place] [address] | + + + | Home Phone [...] Organization | [facility] | | | and [place] | + + + | Address | Unknown | + + + | Phone | Unavailable | + + + Support + + + + + | Name | Relationship | Address | Phone | + + + + + | Boo Flaherty | ECON | , [address] | | + + + + + | Edytakrystle Pickett | ECON | Unknown | | + + + + + Care Team Providers + +------+ + | Care Business Development Recruiter Name | Role | Phone | + +------+ + PCP | Unavailable | + +------+ + Encounter Details +--------+ + + + + | Date | Type | Department | Care Team | Description | +--------+ + + + + | 10/10/ | Hospital | [facility] | Conversion | Essential | | 2018 | Encounter | [facility]ICAL CENTER | Transaction, | hypertension; | | | | CLINICAL DECISION | Provider Unknown | Systolic | | | | [address] | [phone] | dysfunction; | | | | [place], [place] | | Presence of cardiac | | | | [address] | [place], [place], | pacemaker | | | | [phone] | MD Stu [address] | | | | | | [place], [place] | | | | | | [address] | | | | | | | [...] Date of Service: 10/10/17 153 Status: Signed Wage Adjuster: Marcia Earl RN (Registered Nurse) Groin site remains in tact, no new drainage on bandage. CMS in tact. Pt given discharge ins tructions with all questions addressed, Pt has family to drive her home. Left the unit in st able condition via wheelchair. onver aziza Transaction, Provider Unknown - 10/10/2017 3:05 PM PST Nurse Progress Note by Marcia Earl RN at 10/10/17 1504 Author: Marcia Earl RN Service: (none) Author Type: Registered Nurse Filed: 10/10/17 1542 Date of Service: 10/10/171504 Status: Addendum Wage Adjuster: Marcia Earl RN (Registered Nurse) Related Notes: [...] 1758 Date of Service: 10/09/171754 Status: Signed Wage Adjuster: Erasto Quintero RN (Registered Nurse) [facility] Pre-Procedure Telephone Call Type of Procedure [facility] Spoke with: Patient Retort Setter needed: No Greenlandic No Cymraes No Other: Retort Setter arranged: No Arrival Time: 0900 Check In Location: Main loby Ride and Caregiver: Phone Number for Ride/Caregiver: NPO from: 8hrs prior Diabetic: No If Yes are they on Glucophage/Metformin No Date of last Dose {Blank single:[id number]::"NA" Is patient on Anticoagulants No Date of [...] | | | | | [place] | | | | | | [address] | | | | | | | [...] | | | Basophils | performed at [facility];[address] | LAB | | | | [address];[place], [place] | | | | | | [address] | | | | + + + [...] | | | | | | at [facility] | | | | | | [address];[place] [address] | | | | + + + [...]
--- OUTSIDE RECORDS SUMMARY | ~2020-02-22 | XMS | Encounter Summary ---
Demographics + + + | Address | [address] | | | [place] [address] | + + + | Home Phone [...] | Boo Flaherty | ECON | , [address] | | + + + + + | Edyta Pickett | ECON | Unknown | | + + + + + Care Team Providers + +------+ + | Care Animal Skinner Name | Role | Phone | + [...] Provider Unknown | | | | | [place], [place] | [phone] | | | | | [address] | | | | | | [phone] | | | +--------+ + + + [...] [place] | | | | | | [address] | | | | | | | | +--------+---------+ + + + documented as of this encounter Visit Diagnoses Not on filedocumented in this encounter"
--- OUTSIDE RECORDS SUMMARY | ~2020-02-22 | XMS | Encounter Summary ---
Demographics + + + | Address | [address] | | | [place] [address] | + + + | Home Phone [...] + + + | Author | [facility] | | | and [place] | + + + | Organization | [facility] | | | and [place] | + + + | Address | Unknown | + + + | Phone | Unavailable | + + + Support + + + + + | Name | Relationship | Address | Phone | + + + + + | Boo Flaherty | ECON | , [address] | | + + + + + | Edyta Pickett | ECON | Unknown | | + + + + + Care Team Providers + +------+ + | Care Entry Level Recruiter Name | Role | Phone | + +------+ + | Zackary Kearns MD | PCP | | + +------+ + Encounter Details +--------+ + + + + | Date | Type | Department | Care Team | Description | +--------+ + + + + | 05/20/ | Orders Only | [facility] | Benson Weaver, | | | 2019 | | CARDIOLOGY [facility] | [address] | | | | | [address] | [place], [place] | | | | | [place], [place] | [address] | | | | | [address] | | | | | | [phone] | | | +--------+ + + + [...] [place] | | | | | | [address] | | | | | | | | +--------+---------+ + + + documented as of this encounter Visit Diagnoses Not on filedocumented in this encounter"
--- OUTSIDE RECORDS SUMMARY | ~2020-02-22 | XMS | Encounter Summary ---
Demographics + + + | Address | [address] | | | [place] [address] | + + + | Home Phone | | + + + | Preferred Language | Unknown | + + + | Marital Status | | + + + | Presybeterian Affiliation | 1077 | + + + | Race | Unknown | + + + | Ethnic Group | Unknown | + + + Author + + + | Author | [facility] | | | and [place] | + + + | Organization | [facility] | | | and [place] | + + + | Address | Unknown | + + + | Phone | Unavailable | + + + Support + + + + + | Name | Relationship | Address | Phone | + + + + + | oBo Flaherty | ECON | , [address] | | + + + + + | Edyta Pickett | ECON | Unknown | | + + + + + Care Team Providers + +------+ + | Care Emergency Medicine Medical Director Name | Role | Phone | [...] + + | 02/08/ | Procedure | [facility] | | Cardiac pacemaker in | | 2020 | visit | [facility]ARDIOLOGY [place] | | situ (Primary Dx) | | | | [address] | | | | | | [place] | | | | | | [address] | | | | | | [phone] | | | +--------+ + + + [...] | | | | | | [facility] | | | | | | [address] | | | | | | | [...] Kearns MD : | | | 1930MRN: [id number] Primary cardiology provider: Benson | | | [facility] Primary electrophysiology provider: Andrew Liang Device | | | tie maker: [employer] Device type: Biventricular Battery Longevity: | | [...]
--- OUTSIDE RECORDS SUMMARY | ~2020-02-22 | XMS | Encounter Summary ---
Demographics + + + | Address | [address] | | | [place] [address] | + + + | Home Phone | | + + + | Preferred Language | Unknown | + + + | Marital Status | | + + + | Presybeterian Affiliation | 1077 | + + + | Race | Unknown | + + + | Ethnic Group | Unknown | + + + Author + + + | Author | [facility] | | | and [place] | + + + | Organization | [facility] | | | and [place] | + + + | Address | Unknown | + + + | Phone | Unavailable | + + + Support + + + + + | Name | Relationship | Address | Phone | + + + + + | Boo Flaherty | ECON | , [address] | | + + + + + | Edyta Pickett | ECON | Unknown | | + + + + + Care Team Providers + +------+ + | Care Corporate Officer Name | Role | Phone | [...] + + | 08/11/ | Procedure | [facility] | | Cardiac pacemaker in | | 2019 | visit | CARDIOLOGY [place] | | situ (Primary Dx) | | | | [address] | | | | | | [place] | | | | | | [address] | | | | | | [phone] | | | +--------+ + + + [...] | | | | | [place], [place] | | | | | | [address] | | | | | | | [...] Kearns MD : | | | 1930MRN: [id number] Primary cardiology provider: Benson | | | Meg Primary electrophysiology provider: Andrew Liang Device | | | straight cutter machine: [employer] Device type: Biventricular Battery Longevity: 7.7 | [...] Flaherty PCP: Zackary Kearns MD : 1930MRN: [id number] Primary cardiology | | provider: Benson Weaver Primary electrophysiology provider: Andrew Liang Device | | straight cutter machine: AbbottDevice type: BiventricularBattery Longevity: 7.7 years RA [...]
--- OUTSIDE RECORDS SUMMARY | ~2020-02-22 | XMS | Clinical Summary ---
Demographics + + + | Address | [address] | | | [place] [address] | + + + | Home Phone | | + + + | Preferred Language | Unknown | + + + | Marital Status | Single | + + + | Confucianist Affiliation | Unknown | + + + | Race | Unknown | + + + | Ethnic Group | Other Race | + + + Author + + + | Author | [facility] | + + + | Organization | [facility] | + + + | Address | Unknown | + + + | Phone | Unavailable | + + + Care Team Providers + +------+ + | Care Pictures Editor Name | Role | Phone | + +------+ + PCP | Unavailable | + +------+ + Source Comments BRE[facility] is fully live on both [facility] InPatient.[facility] Allergies Not on File Medications Not on [...] | | | | all | | [address] | | | | | | dates | | | | + +--------+ +--------+ + +--------+ | [facility] | [place] | xxxxxxxxx | Effect | [...] | 1930 | [phone] | [place] [address] | | | cathy | | | 4 (Home) | | + +--------+ +--------+ + +"
--- OUTSIDE RECORDS SUMMARY | ~2020-02-22 | XMS | Encounter Summary ---
Demographics + + + | Address | [address] | | | [place] [address] | + + + | Home Phone | | + + + | Preferred Language | Unknown | + + + | Marital Status | Single | + + + | Synagogue Affiliation | Unknown | + + + | Race | Unknown | + + + | Ethnic Group | Other Race | + + + Author + + + | Author | [facility] | + + + | Organization | [facility] | + + + | Address | Unknown | + + + | Phone | Unavailable | + + + Care Team Providers + +------+ + | Care Rn Clinical Research Name | Role | Phone | + [...] [facility] | | | | | | [facility] | | | | | | and Healing, | | | | | | Building [address], [address] | | | | | | Floor [place], [place] | | | | | | [address] | | | | | | [phone] | | | +--------+ + + + [...] skin, | | | | | | [id number]. The surgical | | | | | [...] DARONSU | [address] | [place] [address] | | | DERMATOPATHOLOGY | [address] | | | + + + + + documented in this encounter Visit Diagnoses + + | Diagnosis | + + | Actinic keratosis | + + documented in this encounter
--- OUTSIDE RECORDS SUMMARY | ~2020-02-22 | XMS | Encounter Summary ---
Demographics + + + | Address | [address] | | | [place] [address] | + + + | Home Phone | | + + + | Preferred Language | Unknown | + + + | Marital Status | | + + + | Quaker Affiliation | 1077 | + + + | Race | Unknown | + + + | Ethnic Group | Unknown | + + + Author + + + | Author | [facility] | | | and [place] | + + + | Organization | [facility] | | | and [place] | + + + | Address | Unknown | + + + | Phone | Unavailable | + + + Support + + + + + | Name | Relationship | Address | Phone | + + + + + | Boo Flaherty | ECON | , [address] | | + + + + + | Edyta Pickett | ECON | Unknown | | + + + + + Care Team Providers + +------+ + | Care Dedicated Local Truck Driver Name | Role | Phone | + [...] + + | 11/10/ | Procedure | [facility] | | Presence of cardiac | | 2020 | visit | CARDIOLOGY [place] | | pacemaker | | | | [address] | | | | | | [place] | | | | | | [address] | | | | | | [phone] | | | +--------+ + + + [...] | | | | | [place], [place] | | | | | | [address] | | | | | | | [...] Kearns MD : | | | 1930MRN: [id number] Primary cardiology provider: Benson | | | Meg Primary electrophysiology provider: Olesya Cuevas Device | | | geospatial applications developer: [employer] Device type: Biventricular Battery Longevity: | | [...]
--- OUTSIDE RECORDS SUMMARY | ~2020-02-22 | XMS | Encounter Summary ---
Demographics + + + | Address | [address] | | | [place] [address] | + + + | Home Phone | | + + + | Preferred Language | Unknown | + + + | Marital Status | | + + + | Judaism Affiliation | 1077 | + + + | Race | Unknown | + + + | Ethnic Group | Unknown | + + + Author + + + | Author | [facility] | | | and [place] | + + + | Organization | [facility] | | | and [place] | + + + | Address | Unknown | + + + | Phone | Unavailable | + + + Support + + + + + | Name | Relationship | Address | Phone | + + + + + | Boo Flaherty | ECON | , [address] | | + + + + + | Edyta Pickett | ECON | Unknown | | + + + + + Care Team Providers + +------+ + | Care Busgirl Name | Role | Phone | + [...] + + | 05/17/ | Refill | [facility] | Benson Weaver, | Medication Refill | | 2019 | | CARDIOLOGY [place] | MD Stu ANDERSON | | | | | [address] | [place], [place] | | | | | [place], [place] | [address] | | | | | [address] | | | | | | [phone] | | | +--------+--------+ + + + [...] | | | | | [place] | | | | | | [address] | | | | | | | | +--------+---------+ + + + documented as of this encounter Visit Diagnoses Not on filedocumented in this encounter"
--- OUTSIDE RECORDS SUMMARY | ~2020-02-22 | XMS | Encounter Summary ---
Demographics + + + | Address | [address] | | | [place] [address] | + + + | Home Phone | | + + + | Preferred Language | Unknown | + + + | Marital Status | | + + + | Restoration Affiliation | 1077 | + + + [...] + + + + + | Boo Flahetry | ECON | , [address] | | + + + + + | Edytakrystle Pickett | ECON | Unknown | | + + + + + Care Team Providers + +------+ + | Care Book Packer Name | Role | Phone | + +------+ + PCP | Unavailable | + +------+ + Encounter Details +--------+ + + + + | Date | Type | Department | Care Team | Description | +--------+ + + + + | 12/04/ | Hospital | [facility] | Conversion | 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 Pt educated about discharge, discharge instruction, pt medications and prescription discussed. Pt verbalized understanding. Neto Bullock RN uAndrew veloz MD - 12/05/2017 6:11 AM PST Progress Notes by Andrew Liang MD at 12/05/17 0611 Author: Andrew Liang MD Service: Cardiology Author Type: Physician Filed: 12/05/17 0846 Date of Service: 12/05/17610 Status: Addendum Construction Equipment Mechanic: Andrew Liang MD (Physician) Related Notes: Original Note by Olesya Cuevas NP (Nurse Practitioner) filed at 12/05/[address] [facility] PATIENT NAME: Mary Flaherty : 1930: AGE: 87 y.o. ADMISSION DATE: 12/04/2017 Hospital Day # 0 Date of Service: 12/05/2017 Principal Hospital Problem: BiV Upgrade Code Status: Full Code PRIMARY CARE: KY[facility] Cuevas [facility] ELECTROPHYSIOLOGY HOSPITAL PROGRESS NOTE Events since [...] placed on 06/13/[address] Carrol Mauricio [facility], [facility], and gen-change was preformed on 11/03/[address] David Albarran MD [employer]tronic - Pacemaker. Model-S/N: Adapta ADDR01 - [id number]. 11/28/2017 DOMESTIC HOUSEKEEPER-P risk, benefits, procedure, and consent was completed during this visit.She has a high ventricular pacing burden (100%) and her LV systolic function has deteriorated. A recent ej ection fraction is 35-40%, so an upgrade to a DOMESTIC HOUSEKEEPER pacemaker has been recommended. She has cl [...] (none) Author Type: Registered Nurse Filed: 12/05/17 9473 Date of Service: 03/08/18 0040 Status: Signed Construction Equipment Mechanic: Maria De Jesus Nuñez RN (Registered Nurse) [...] 12/03/171749 Date of Service: 12/03/171742 Status: Signed Construction Equipment Mechanic: Yvonne Duran RN (Registered Nurse) [facility] Pre-Procedure Telephone Call Date 12/03/2017 5:43 PM Type of Procedure: BIV Gen Change Spoke with: Patient Breaker Boss needed: No Arrival Time: 1430 NPO from: 629 Diabetic: No If Yes are they on Glucophage/Metformin No Date of last Dose NA Is patient on Anticoagulants No Date of Last Dose NA Iodine Allergy? No Action: NA, Pre-medicated and Physician Notified Bring a list of your medications/dosages: yes *Building Maintenance Superintendent home* yes *Check in at Main Lobby* [...] [place] | | | | | | [address] | | | | | | | [...] NEGATIVE Testing | | | performed at [facility];[address] [facility];[place] [address] | | + + + + +---------+ [...]
[~2020-02-22 14:46] MED LIST changes: +ASPIRIN EC325 MG PO; +HEALTHYLAX17 GM PO; +SENNA LAX8.6 MG PO
[2020-02-22] MEDS ORDERED: NORCO 5-325 TA1 EACH PO (16:19)
== END 2020-02-22 16:44 | disposition home or self-care (01) ==
LOC: ED 14:46
DX: S81.012A Laceration without foreign body, left knee, initial encounter (principal); S20.219A Contusion of unspecified front wall of thorax, initial encounter; I10 Essential (primary) hypertension; Z88.0 Allergy status to penicillin; Z91.040 Latex allergy status; Z88.2 Allergy status to sulfonamides; Z91.048 Other nonmedicinal substance allergy status; Z79.899 Other long term (current) drug therapy
CPT/HCPCS: 12004; 71045; 73560; 99284-25

== ENCOUNTER 2020-02-22 22:14 | Emergency (ER) | payer MEDICARE ==
[~2020-02-22] VITALS: Ht 157.5 cm; Wt 72.6 kg
--- OUTSIDE RECORDS SUMMARY | ~2020-02-22 | XMS | Encounter Summary ---
Demographics + + + | Address | [address] | | | [place] [address] | + + + | Home Phone | | + + + | Preferred Language | Unknown | + + + | Marital Status | | + + + | Jewish Affiliation | 1077 | + + + | Race | Unknown | + + + | Ethnic Group | Unknown | + + + Author + + + | Author | [facility] | | | and [place] | + + + | Organization | [facility] | | | and [place] | + + + | Address | Unknown | + + + | Phone | Unavailable | + + + Support + + + + + | Name | Relationship | Address | Phone | + + + + + | Boo Flaherty | ECON | , [address] | | + + + + + | Edyta Pickett | ECON | Unknown | | + + + + + Care Team Providers + +------+ + | Care Receiving Distribution Station Operator Name | Role | Phone | + +------+ + | Zackary Kearns MD | PCP | | + +------+ + Encounter Details +--------+ + + + + | Date | Type | Department | Care Team | Description | +--------+ + + + + | 10/22/ | Orders Only | [facility] | Benson Weaver, | | | 2018 | | CARDIOLOGY [facility] | [address] | | | | | [address] | [place], [place] | | | | | [place], [place] | [address] | | | | | [address] | | | | | | [phone] | | | +--------+ + + + + Social History + +-------+ +--------+------+ | Tobacco [...] recent travel history available. | + + documented as of this encounter Plan of Treatment +--------+---------+ + + + | Date | Type | Specialty | Care Team | Description | +--------+---------+ + + + | 05/18/ | Office | Cardiology | Benson Weaver, | | | 2019 | Visit | | MD [address] | | | | | | [place] | | | | | | [address] | | | | | | | | +--------+---------+ + + + documented as of this encounter Visit Diagnoses Not on filedocumented in this encounter"
--- OUTSIDE RECORDS SUMMARY | ~2020-02-22 | XMS | Encounter Summary ---
Demographics + + + | Address | [address] | | | [place] [address] | + + + | Home Phone | | + + + | Preferred Language | Unknown | + + + | Marital Status | | + + + | Yazdanism Affiliation | 1077 | + + + | Race | Unknown | + + + | Ethnic Group | Unknown | + + + Author + + + | Author | [facility] | | | and [place] | + + + | Organization | [facility] | | | and [place] | + + + | Address | Unknown | + + + | Phone | Unavailable | + + + Support + + + + + | Name | Relationship | Address | Phone | + + + + + | Boo Flaherty | ECON | , [address] | | + + + + + | Edyta Pickett | ECON | Unknown | | + + + + + Care Team Providers + +------+ + | Care Grommet Man Name | Role | Phone | + +------+ + | Zackary Kearns MD | PCP | | + +------+ + Encounter Details +--------+ + + + + | Date | Type | Department | Care Team | Description | +--------+ + + + + | 08/18/ | Orders Only | [facility] | Conversion | | | 2015 | | CONVERSION [address] | Transaction, | | | | | [address] | Provider Unknown | | | | | [place], [place] | [phone] | | | | | [address] | | | | | | [phone] | | | +--------+ + + + [...] [place] | | | | | | [address] | | | | | | | | +--------+---------+ + + + documented as of this encounter Visit Diagnoses Not on filedocumented in this encounter"
--- OUTSIDE RECORDS SUMMARY | ~2020-02-22 | XMS | Encounter Summary ---
Demographics + + + | Address | [address] | | | [place] [address] | + + + | Home Phone | | + + + | Preferred Language | Unknown | + + + | Marital Status | | + + + | Protestant Affiliation | 1077 | + + + | Race | Unknown | + + + | Ethnic Group | Unknown | + + + Author + + + | Author | [facility] | | | and [place] | + + + | Organization | [facility] | | | and [place] | + + + | Address | Unknown | + + + | Phone | Unavailable | + + + Support + + + + + | Name | Relationship | Address | Phone | + + + + + | Boo Flaherty | ECON | , [address] | | + + + + + | Edyta Pickett | ECON | Unknown | | + + + + + Care Team Providers + +------+ + | Care Advertising Coordinator Name | Role | Phone | + +------+ + | Zackary Kearns MD | PCP | | + +------+ + Encounter Details +--------+ + + + + | Date | Type | Department | Care Team | Description | +--------+ + + + + | 05/20/ | Orders Only | [facility] | Benson Weaver, | | | 2019 | | CARDIOLOGY [facility] | [address] | | | | | [address] | [place], [place] | | | | | [place], [place] | [address] | | | | | [address] | | | | | | [phone] | | | +--------+ + + + [...] [place] | | | | | | [address] | | | | | | | | +--------+---------+ + + + documented as of this encounter Visit Diagnoses Not on filedocumented in this encounter"
--- OUTSIDE RECORDS SUMMARY | ~2020-02-22 | XMS | Encounter Summary ---
Demographics + + + | Address | [address] | | | [place] [address] | + + + | Home Phone | | + + + | Preferred Language | Unknown | + + + | Marital Status | | + + + | Sabianist Affiliation | [phone] | + + + | Race | Unknown | + + + | Ethnic Group | Unknown | + + + Author + + + | Author | [facility] | | | and [place] | + + + | Organization | [facility] | | | and [place] | + + + | Address | Unknown | + + + | Phone | Unavailable | + + + Support + + + + + | Name | Relationship | Address | Phone | + + + + + | Boo Flaherty | ECON | , [phone] | | + + + + + | Edytakrystle Pickett | ECON | Unknown | | + + + + + Care Team Providers + +------+ + | Care Motor Vehicle Light Assembler Name | Role | Phone | + +------+ + PCP | Unavailable | + +------+ + Encounter Details +--------+ + + + + | Date | Type | Department | Care Team | Description | +--------+ + + + + | 12/04/ | Hospital | [facility] | Conversion | Non-ischemic | | 2018 - | Encounter | [facility] | Transaction, | cardiomyopathy | | | | CLINICAL DECISION | Provider Unknown | (HCC); Presence of | | 12/05/ | | [address] | [phone] | cardiac pacemaker | | 2018 | | [place], [place] | | | | | | [address] | Andrew Liang MD | | | | | [phone] | [address] | | | | | | [place], [place] | | | | | | [address] | | | | | | | | +--------+ + + + [...] + + documented as of this encounter Last Filed Vital Signs + + + + + | Vital Sign | Reading | Time Taken | Comments | + + + + + | Blood Pressure | 187/81 | 12/05/2017 9:50 AM | | | | | PST | | + + + + + | Pulse | 76 | 12/05/2017 9:50 AM | | | | | PST | | + + + + + | Temperature | 36.6 C (97.9 F) | 12/05/2017 9:50 AM | | | | | PST | | + + + + + | Respiratory Rate | 16 | 12/05/2017 9:50 AM | | | | | PST | | + + + + + | Oxygen Saturation | - | - | | + + + + + | Inhaled Oxygen | - | - | | | Concentration | | | | + + + + + | Weight | 62.5 kg (137 lb 12.6 | 12/05/2017 9:50 AM | | | | oz) | PST | | + + + + + | Height | 160 cm (5' 3") | 12/05/2017 9:50 AM | | | | | PST | | + + + + + | Body Mass Index | 24.41 | 12/05/2017 9:50 AM | | | | | PST | | + + + + + documented in this encounter Medications at Time of Discharge + + + +---------+ + + | Medication | Sig | Dispensed | Refills | Start | End Date | | | | | | Date | | + + + +---------+ + + | aspirin 81 mg EC | Take 81 mg by mouth | | 0 | 10/30/20 | | | tablet | daily with | | | 14 | | | | breakfast. | | | | | + + + +---------+ + + | doxazosin | Take 2 mg by mouth | | 0 | 10/30/20 | | | (CARDURA) 2 mg | nightly. | | | 14 | | | tablet | | | | | | + + + +---------+ + + | furosemide (LASIX) | Take 20 mg by mouth | | 0 | 08/18/20 | | | 20 mg tablet | daily. | | | 15 | | + + + +---------+ + + | levothyroxine | Take 88 mcg by mouth | | 0 | 07/29/20 | | | (SYNTHROID) 88 mcg | every morning | | | 14 | | | tablet | before breakfast. | | | | | + + + +---------+ + + | potassium chloride | Take 20 mEq by mouth | | 0 | 07/29/20 | | | (MANOLO-CON M20) 20 | 2 (two) times | | | 14 | | | mEq ER tablet | daily. | | | | | + + + +---------+ + + | Calcium | Take by mouth | | 0 | 07/29/20 | | | Carbonate-Vit D-Min | daily. | | | 14 | 0 | | (CALCIUM 1200 PO) | | | | | | + + + +---------+ + + | lisinopril | Take 40 mg by mouth | | 0 | 07/29/20 | | | (PRINIVIL,ZESTRIL) | daily. | | | 14 | 0 | | 40 MG tablet | | | | | | + + + +---------+ + + documented as of this encounter Progress Notes Conversion Transaction, Provider Unknown - 12/05/2017 10:23 AM PSTFormatting of this note m ight be different from the original. Nurse Progress Note by Neto Bullock RN at 12/05/17 1023 Author: Neto Bullock RN Service: (none) Author Type: Registered Nurse Filed: 12/05/17 1024 Date of Service: 12/05/17 1023 Status: Signed Licensed Mental Health Professional: Neto Bullock RN (Registered Nurse) Pt discharged off unit with family. Pt educated about discharge, discharge instruction, pt medications and prescription discussed. Pt verbalized understanding. Neto Bullock RN uAndrew veloz MD - 12/05/2017 6:11 AM PST Progress Notes by Andrew Liang MD at 12/05/17 0611 Author: Andrew Liang MD Service: Cardiology Author Type: Physician Filed: 12/05/17 0846 Date of Service: 12/05/17610 Status: Addendum Licensed Mental Health Professional: Andrew Liang MD (Physician) Related Notes: Original Note by Olesya Cuevas NP (Nurse Practitioner) filed at 12/05/1703 17 [facility] PATIENT NAME: Mary Flaherty : 1930: AGE: 87 y.o. ADMISSION DATE: 12/04/2017 Hospital Day # 0 Date of Service: 12/05/2017 Principal Hospital Problem: BiV Upgrade Code Status: Full Code PRIMARY CARE: KYRA Cuevas [facility] PROGRESS NOTE Events since last note: She has had diaphragmatic pacing sense last night intermittently, when she is supine. It g oes away when she sits up or stands up. The device was interrogated and the current lead co nfiguration for the new LV lead is distal tip to second electrode. By switching to LV 1 to LV 4, the pacing threshold improved to 0.75 V at 0.6 ms and the diaphragmatic pacing went aw ay. Some initial pain, controlled on Tylenol. Incision line is CDI with no signs of infection, oozing but with small hematoma. CXR shows good lead placement and no evidence of pneumothorax. Post-op instructions were discussed with the patient. Patient is stable and ready for discharge this morning. ASSESSMENT AND PLAN: Patient Active Problem List Diagnosis Date Noted Mild mitral regurgitation by prior echocardiogram 12/04/2017 Mild MR and TR and ejection fraction 35-40% on recent echo. Mild tricuspid regurgitation by prior echocardiogram 12/04/2017 And mild TR and MR. Acquired hypothyroidism 12/04/2017 On levothyroxine 0.88 mg per day Non-ischemic cardiomyopathy (HCC) 10/09/2017 cath 10/10/17: 1. Nonischemic cardiomyopathy, could be secondary to pacemaker-induced cardiomyopathy. 2. No significant coronary artery disease. 3. Elevated opening pressure. 4. Right iliac artery loop. Echo 03/08/17 IMPRESSION: 1. The left ventricle is normal in size, wall thickness moderately impaired systolic functi on EF 35-40%. 2. There is paradoxical/dysynergic septal motion consistent with RV pacing. 3. The diastolic filling pattern indicates impaired relaxation consistent with mild dysfunc tion (Grade I). 4. The right ventricle is normal in size and function. 5. Mild mitral regurgitation and mildly dilated left atrium. 6. Mild tricuspid regurgitation with no pulmonary hypertension. 7. There is no pericardial effusion. Systolic dysfunction 10/09/2017 SSS (sick sinus syndrome) 07/29/2014 Essential hypertension with goal blood pressure less than 130/80 07/29/2014 The blood pressure is reasonably well controlled on current therapy. Grade 1 diastolic dysfunction noted on an echo.On carvedilol 25 mg twice a day and lisinopril 40 mg per day. A lso on Cardura 2 mg at night and Lasix 20 mg per day. HLD (hyperlipidemia) 07/29/2014 Cardiac pacemaker in situ 07/29/2014 Initial pacemaker was placed on 06/13/[address] Carrol Mauricio [facility], [facility], and gen-change was preformed on 11/03/[address] David Albarran MD [employer] - Pacemaker. Model-S/N: Adapta ADDR01 - [id number]. 11/28/2017 PROJECT SYSTEMS ENGINEER-P risk, benefits, procedure, and consent was completed during this visit.She has a high ventricular pacing burden (100%) and her LV systolic function has deteriorated. A recent ej ection fraction is 35-40%, so an upgrade to a PROJECT SYSTEMS ENGINEER pacemaker has been recommended. She has cl ass III symptoms of heart failure. The paced QRS duration was 190 ms on a recent ECG SCHEDULED MEDS: acetaminophen 650 mg Oral Q4H While awake aspirin EC 81 mg Oral Daily with breakfast carvedilol 25 mg Oral BID WC furosemide 20 mg Oral Daily levothyroxine 88 mcg Oral QAM AC lisinopril 40 mg Oral Daily potassium chloride SA 20 mEq Oral TID IV INFUSIONS: OBJECTIVE LATEST VITALS: BP 155/68 (BP Location: Right forearm) | Pulse 67 | Temp 98 F (36.7 C ) (Oral) | Resp 16 | Ht 1.6 m (5' 3") | Wt 62.5 kg (137 lb 12.6 oz) | SpO2 97% | BMI 24 .41 kg/m I/O s (this shift): No intake/output data recorded. Vital sign ranges for last 24hrs: Input and output for last 24hrs: Temp: [97.8 F (36.6 C)-98 F (36.7 C)] 98 F (36.7 C) Heart Rate: [64-82] 67 Resp: [16-30] 16 BP: (154-193)/(68-86) 155/68 SpO2 Av.7 % Min: 97 % Max: 99 % could not be evaluated. This SmartLink does not work with rows of the type: No intake/out put data recorded. REVIEW OF SYSTEMS A 10-point review of systems was performed and is negative except for the pertinent positiv es noted in the HPI. PHYSICAL EXAM: Admit Weight: Weight: 62.5 kg (137 lb 12.6 oz) Current weight: Weight: 62.5 kg (137 lb 12.6 oz) General Appearance: Alert, oriented, cooperative, no distress, appears stated age HEENT: Extraocular movements intact. Pupils round and reactive. No jaundice. NECK: No JVD, No lymphadenopathy. Trachea is at midline. CARDIAC: Normal S1 and S2 heart sounds. No murmurs, rubs, or gallops. Non-displaced, non-pepe stained apical impulse. CHEST: Normal symmetrical chest excursion. Good bilateral air entry with no crackles or whe ezing. The pacer site looks good. There is some bruising but no evidence of hematoma or in fection. ABDOMEN: Non tender, non distended, bowel sounds present, no organomegaly. EXTREMITIES: 2+ pulses radial and pedal, symmetric. NEURO: No focal deficits. SKIN: No bruises or rash. Warm and dry. Incision CDI, no hematoma. Signed by: Andrew Liang 12/05/2017, 6:11 AM onversion Transact ion, Provider Unknown - 12/05/2017 12:40 AM PSTFormatting of this note might be different fr om the original. Nurse Progress Note by Maria De Jesus Nuñez RN at 12/05/1739 Author: Maria De Jesus Nuñez RN Service: (none) Author Type: Registered Nurse Filed: 12/05/17 8133 Date of Service: 03/08/18 0040 Status: Signed Licensed Mental Health Professional: Maria De Jesus Nuñez RN (Registered Nurse) Pt c/o of an "uncomfortable feeling on left side." While assessing pt, I noticed under her left breast her abd is pulsating. Her abd is going in and out according to her heart rate. The pt says it is not too painful, just uncomfortable. We noticed it worse while laying d own. While walking, it is not so evident. Sometimes while sitting it stops. I called and talked to Dr. Liang and let him know. He stated that the pacemaker/ICD will need to be repr ogrammed in the morning and that we can continue to reposition the pt to help make her more comfortable until they reprogram the pacemaker/ICD. I educated pt on the plan and gave her the update. Pt verbalizes understanding. onver aziza Averyaction, Provider Unknown - 12/03/2017 5:43 PM PST Nurse Progress Note by Yvonne Duran RN at 12/03/171742 Author: Yvonne Duran RN Service: (none) Author Type: Registered Nurse Filed: 12/03/171749 Date of Service: 12/03/171742 Status: Signed Licensed Mental Health Professional: Yvonne Duran RN (Registered Nurse) [facility] Pre-Procedure Telephone Call Date 12/03/2017 5:43 PM Type of Procedure: BIV Gen Change Spoke with: Patient Hand Bulldozer needed: No Arrival Time: 1430 NPO from: 629 Diabetic: No If Yes are they on Glucophage/Metformin No Date of last Dose NA Is patient on Anticoagulants No Date of Last Dose NA Iodine Allergy? No Action: NA, Pre-medicated and Physician Notified Bring a list of your medications/dosages: yes *Edi Programmer Analyst home* yes *Check in at Main Lobby* Comments: might stay the night per MD. Yvonne Perez RN docume nted in this encounter Plan of Treatment +--------+---------+ + + + | Date | Type | Specialty | Care Team | Description | +--------+---------+ + + + | 05/18/ | Office | Cardiology | Meg Tatikalina, | | | 2019 | Visit | | [address] | | | | | | [place] | | | | | | [address] | | | | | | | | +--------+---------+ + + + documented as of this encounter Procedures + +--------+ + + + | Procedure Name | Priori | Date/Time | Associated Diagnosis | Comments | | | ty | | | | + +--------+ + + + | XR CHEST 2 VIEWS | Routin | 12/04/2017 | | Results for this | | | e | 9:23 PM | | procedure are in the | | | | PST | | results section. | + +--------+ + + + | MRSA NAAT | STAT | 12/04/2017 | | Results for this | | | | 2:22 PM | | procedure are in the | | | | PST | | results section. | + +--------+ + + + documented in this encounter Results XR Chest 2 Vws (12/04/2017 9:23 PM PST) + + | Specimen | + + | | + + + + + | Impressions | Performed At | + + + | 1. No evidence of pneumothorax post ICD placement. 2. Leads are | | | in satisfactory position unchanged from earlier today. | | | | | + + + + + + | Narrative | Performed At | + + + | [facility] XR CHEST 2 VIEW FRONTAL AND LATERAL 12/04/2017 | | | 9:23 PM HISTORY: 87 years. Female. Electrophysiology lab ICD | | | upgrade to biventricular. Assess for pneumothorax. TECHNIQUE: 2 | | | views obtained. COMPARISON: Chest x-ray 06/14/2002. | | | Fluoroscopic images obtained during device placement earlier today. | | | FINDINGS: An ICD is seen implanted in the upper left chest. 3 | | | leads appear to be in satisfactory position unchanged from films | | | obtained during placement earlier today. Overlying EKG leads are | | | noted. The heart is mildly enlarged. The pulmonary vascular | | | pattern is normal. No acute airspace disease, parenchymal nodule, | | | mass, pleural effusion or pneumothorax is noted. No hilar adenopathy | | | is seen. The osseous structures are intact. | | + + + + + | Procedure Note | + + | Lenny Vazquez Conversion - 05/13/2019 3:33 AM PDT [facility] GAYMANXR CHEST 2 VIEW | | FRONTAL AND LATERAL12/04/2017 9:23 PM HISTORY:87 years. Female. Electrophysiology lab | | ICD upgrade to biventricular. Assess for pneumothorax. TECHNIQUE:2 views obtained. | | COMPARISON:Chest x-ray 06/14/2002. Fluoroscopic images obtained during device placement | | earlier today. FINDINGS:An ICD is seen implanted in the upper left chest. 3 leads | | appear to be in satisfactory position unchanged from films obtained during placement | | earlier today.Overlying EKG leads are noted. The heart is mildly enlarged. The | | pulmonary vascular pattern is normal. No acute airspace disease, parenchymal nodule, | | mass, pleural effusion or pneumothorax is noted. No hilar adenopathy is seen. The | | osseous structures are intact. IMPRESSION: 1. No evidence of pneumothorax post ICD | | placement.2. Leads are in satisfactory position unchanged from earlier today. | | | | | |FINDINGS: | |An ICD is seen implanted in the upper left chest. 3 leads appear to be in satisfactory pos ition unchanged from films obtained during placement earlier today. | |Overlying EKG leads are noted. The heart is mildly enlarged. The pulmonary vascular patte rn is normal. No acute airspace disease, parenchymal nodule, mass, pleural effusion or pneu mothorax is noted. No hilar adenopathy is seen. The osseous | |structures are intact. | | | |IMPRESSION: | |1. No evidence of pneumothorax post ICD placement. | |2. Leads are in satisfactory position unchanged from earlier today. | | | | | + + MRSA NAAT (12/04/2017 2:22 PM PST) + + | Specimen | + + | | + + + + + | Narrative | Performed At | + + + | [facility](NOSE) MRSA | EXTERNAL LAB | | PCR NEGATIVE Testing | | | performed at [facility];[address];[place] [address] | | + + + + +---------+ + + | Performing | Address | City/State/Zipcode | Phone Number | | Organization | | | | + +---------+ + + | EXTERNAL LAB | | | | + +---------+ + + documented in this encounter Visit Diagnoses + + | Diagnosis | + + | Non-ischemic cardiomyopathy (HCC) Other primary cardiomyopathies | + + | Presence of cardiac pacemaker Cardiac pacemaker in situ | + + documented in this encounter
--- OUTSIDE RECORDS SUMMARY | ~2020-02-22 | XMS | Encounter Summary ---
Demographics + + + | Address | [address] | | | [place] [address] | + + + | Home Phone | | + + + | Preferred Language | Unknown | + + + | Marital Status | | + + + | Faith Affiliation | [phone] | + + + [...] | Boo Flaherty | ECON | , [address] | | + + + + + | Edyta Pickett | ECON | Unknown | | + + + + + Care Team Providers + +------+ + | Care Copy Messenger Name | Role | Phone | + +------+ + | Zackary Kearns MD | PCP | | + +------+ + Reason for Visit + + + | Reason | Comments | + + + | Follow-up | | + + + Encounter Details +--------+---------+ + + + | Date | Type | Department | Care Team | Description | +--------+---------+ + + + | 11/18/ | Office | [facility] | Benson Abel, | Essential | | 2020 | Visit | CARDIOLOGY [facility] | [address] | hypertension with | | | | [address] | [place], [place] | goal blood pressure | | | | [address] [place] [address] | [address] | less than 130/80 | | | | [place] | | (Primary Dx); | | | | [address] | | Non-ischemic | | | | [phone] | | cardiomyopathy | | | | | | (HCC); Paroxysmal | | | | | | atrial fibrillation | | | | | | (HCC); Cardiac | | | | | | pacemaker in situ | +--------+---------+ + + + Social History + +-------+ [...] + + + + | Temperature | - | - | | + + + + + | Respiratory Rate | - | - | | + [...] + + + documented in this encounter Progress Notes Benson Abel MD - 11/18/2019 2:00 PM PSTFormatting of this note might be different f rom the original. Date of visit: 11/18/2019 Primary Care Physician: Zackary Kearns MD CHIEF COMPLAINT: Chief Complaint Patient presents with Follow-up HISTORY OF PRESENT ILLNESS: Mary is 89 y.o. here for follow-up visit. History of nonischemic cardiomyopathy pacemak er induced. Blood pressure has been on the low end, she has been having frequent symptoms of dizziness at least twice a day. Continues to use home O2 however only night time. Had right knee replacement in June 2019 without cardiac event. Still involved in the pentecostalism and independent in her daily needs. Denies any chest pain however has occasional nocturnal orthopnea. Currently on carvedilol to 25 mg bid and Lisinopril 40 mg daily, spironolactone 12.5 mg onc e daily. In April, pacemaker interrogation showed high atrial rate for an hour. At alejandro t time patient patient mentions she was in severe pain after dental procedure which happened after her knee surgery as well. That incident lasted for an hour with no recurrence on pace maker interrogation. Past medical history, SH, FH, and medications were reviewed in the chart. Medications: Outpatient Encounter Medications as of 11/18/2019 Medication Sig Dispense Refill aspirin 81 mg EC tablet Take 81 mg by mouth daily with breakfast. [DISCONTINUED] Calcium Carbonate-Vit D-Min (CALCIUM 1200 PO) Take by mouth daily. carvedilol (COREG) 25 mg tablet TAKE ONE TABLET BY MOUTH TWICE DAILY WITH MEALS 180 ta blet 0 doxazosin (CARDURA) 2 mg tablet Take 2 mg by mouth nightly. furosemide (LASIX) 20 mg tablet Take 20 mg by mouth daily. levothyroxine (SYNTHROID) 88 mcg tablet Take 88 mcg by mouth every morning before break fast. lisinopril (PRINIVIL,ZESTRIL) 40 MG tablet Take 40 mg by mouth daily. Multiple Vitamins-Minerals (MULTIVITAMIN ADULT PO) Take by mouth. potassium chloride (KLOR-CON M20) 20 mEq ER tablet Take 20 mEq by mouth 2 (two) times d aily. spironolactone (ALDACTONE) 25 mg tablet Take 12.5 mg by mouth Daily. No facility-administered encounter medications on file as of 11/18/2019. Allergies Allergies Allergen Reactions Gabapentin Hives Penicillins Anaphylaxis Anaphylaxis Statins Other (See Comments) Increased liver enzymes Sulfa Antibiotics Rash Rash Tape [Adhesive & Tape] Rash Rash REVIEW OF SYSTEMS: Constitutional: Mild fatigue weight has been stable. HEENT: Negative for nosebleeds, ear discharge, nasal congestion or soar throat. Eyes: Wears glasses, redness, or secretion. Respiratory: Negative for cough, sputum production, hemoptysis, wheezing. Cardiovascular: As HPI. Gastrointestinal: Negative for nausea, vomiting, diarrhea, abdominal pain and blood in stoo l. Genitourinary: Negative for dysuria or hematuria. Musculoskeletal: Still using a cane to ambulate, bilateral knee replacement. Skin: Negative for rash. Neurological: Negative for dizziness. No numbness. No recent falls. No slurred speech. Hematological: No significant bruising. Psychiatric/Behavioral: No depression or anxiety. PHYSICAL EXAM Vital Signs: BP 108/68 | Pulse 82 | Ht 1.575 m (5' 2") | Wt 71.2 kg (157 lb) | SpO2 97% | BMI 28.72 kg/m GENERAL APPEARANCE: Alert, oriented, cooperative, no distress, appears stated age. HEENT: Extraocular movements were intact. No jaundice. Pupiles round and reactive. NECK: No JVD, lymphadenopathy. Carotid upstrokes normal. No carotid bruit heard. CARDIAC: Regular rhythm and rate. There is normal S1 and S2. No galop. No murmur. CHEST: Normal bilateral symmetrical chest excursion.ackles or wheezing. No evidence of dull ness. ABDOMEN: Soft.No tenderness or guarding. No palpable organs. Active bowel sounds. EXTREMITIES: No lower extremities edema, cyanosis or clubbing. NEURO: Alert and oriented times three with no focal deficit. Cranial nerves are grossly no rmal. SKIN: Warm and dry. No rash. Psych: Normal affect and mood. DATA 06/25/2019 Sodium 131, potassium 3.9, chloride 98, bicarb 24, BUN 18, creatinine 0.87, AST 18, ALT 13, alk phos 64. Lab Results Component Value Date/Time NA 140 10/10/2017 09:19 AM K 3.7 10/10/2017 09:19 AM CO2 25 10/10/2017 09:19 AM BUN 21 10/10/2017 09:19 AM CALCIUM 9.1 10/10/2017 09:19 AM Lab Results Component Value Date/Time WBC 6.47 10/10/2017 09:19 AM HGB 13.9 10/10/2017 09:19 AM MCV 92.9 10/10/2017 09:19 AM LABPLAT 180 10/10/2017 09:19 AM Lab Results Component Value Date GLUF 86 10/10/2017 EKG 04/22/2019 Ordered and reviewed by myself showed sinus rhythm/atrial sensed. Ventricular paced. Last Echo: 03/08/2017: EF 35-40%. LV normal in size and wall thickness. Paradoxical septal motion consistent w ith RV pacing. Grade 1, diastolic dysfunction. RV normal in size and function. Mild lef t atrial enlargement. Mild MR and mild TR. Last Stress test: Last Cath: 10/10/2017 Right dominant system, no significant coronary artery disease. Last US carotid: Hx Pacemaker:initial implant 06/13/2002, replaced 11/03/2010, Medtronic [id number], SN: [id number]. 11/28/2017 [employer] model [id number], serial number [id number] permanent pacemaker. ASSESSMENT: Patient is 89 y.o. with 1. Cardiomyopathy, non-ischemic. Moderate impaired systolic function EF 35-40%. S/P BiV pac emaker. No signs of volume overload. 2. Hypertension blood pressure is controlled. 3. Frequent episodes of dizziness with low blood pressure. 4. History of sick sinus syndrome states post dual chamber pacemaker. 5. Paroxysmal atrial fibrillation. No recurrent episodes since then. 6. Right iliac artery loop. 7. Possible sleep apnea on home O2 at night. Plan: Blood pressure has been mildly on the low side with episodes of dizziness. Patient currently on carvedilol 25 mg bid. Decrease lisinopril to 20 mg daily. If patient continues to have any further episodes of dizziness will consider stopping candido nolactone. Continue with scheduled pacemaker interrogation. Continue with potassium chloride and furosemide. Continue low-dose aspirin. Will report any change in symptoms. *This report has been prepared using a voice recognition system. The report was reviewed fo r accuracy, however, sound-alike word errors, addition and/or deletions may occur. If there is any question about this report please contact me. Benson Abel MD, MPH documented in this encounter Plan of Treatment +--------+---------+ + + + | Date | Type | Specialty | Care Team | Description | +--------+---------+ + + + | 05/18/ | Office | Cardiology | Benson Abel, | | | 2019 | Visit | | MD Stu ANDERSON | | | | | | [place] | | | | | | [address] | | | | | | | | +--------+---------+ + + + documented as of this encounter Visit Diagnoses + + | Diagnosis | + + | Essential hypertension with goal blood pressure less than 130/80 - Primary | + + | Non-ischemic cardiomyopathy (HCC) Other primary cardiomyopathies | + + | Paroxysmal atrial fibrillation (HCC) Atrial fibrillation | + + | Cardiac pacemaker in situ | + + documented in this encounter
--- OUTSIDE RECORDS SUMMARY | ~2020-02-22 | XMS | Encounter Summary ---
Demographics + + + | Address | [address] | | | [place] [address] | + + + | Home Phone | | + + + | Preferred Language | Unknown | + + + | Marital Status | | + + + | Oriental Orthodox Affiliation | 1077 | + + + | Race | Unknown | + + + | Ethnic Group | Unknown | + + + Author + + + | Author | [facility] | | | and [place] | + + + | Organization | [facility] | | | and [place] | + + + | Address | Unknown | + + + | Phone | Unavailable | + + + Support + + + + + | Name | Relationship | Address | Phone | + + + + + | Boo Flaherty | ECON | , [address] | | + + + + + | Edyta Pickett | ECON | Unknown | | + + + + + Care Team Providers + +------+ + | Care Cane Loader Name | Role | Phone | + +------+ + | Zackary Kearns MD | PCP | | + +------+ + Reason for Visit + + + | Reason | Comments | + + + | Device Check | | | (Remote) | | + + + Encounter Details +--------+ + + + + | Date | Type | Department | Care Team | Description | +--------+ + + + + | 02/08/ | Procedure | [facility] | | Cardiac pacemaker in | | 2020 | visit | CARDIOLOGY [place] | | situ (Primary Dx) | | | | [address] | | | | | | [place] | | | | | | [address] | | | | | | [phone] | | | +--------+ + + + [...] | | | | | | [facility] [place] [facility] | | | | | | [address] | | | | | | | [...] + + documented in this encounter Results Device Interrogation - Remote (02/09/2020 8:10 AM PDT) + + + | Narrative | Performed At | + + + | Gladys Farooq | [facility] | | KODY Cai 02/09/2020 9:39 IMANI REMOTE INTERROGATION | | | REPORT Name: Mary Flaherty PCP: Zackary Kearns MD : | | | 1930MRN: [id number] Primary cardiology provider: Benson | | | [facility] Primary electrophysiology provider: Andrew Liang Device | | | electrician telephone: Vilynx Device type: Biventricular Battery Longevity: | | [...] + | Diagnosis | + + | Cardiac pacemaker in situ - Primary | + + documented in this encounter"
--- OUTSIDE RECORDS SUMMARY | ~2020-02-22 | XMS | Encounter Summary ---
Demographics + + + | Address | [address] | | | [place] [address] | + + + | Home Phone | | + + + | Preferred Language | Unknown | + + + | Marital Status | | + + + | Druze Affiliation | 1077 | + + + | Race | Unknown | + + + | Ethnic Group | Unknown | + + + Author + + + | Author | [facility] | | | and [place] | + + + | Organization | [facility] | | | and [place] | + + + | Address | Unknown | + + + | Phone | Unavailable | + + + Support + + + + + | Name | Relationship | Address | Phone | + + + + + | Boo Flaherty | ECON | , [address] | | + + + + + | Edyta Pickett | ECON | Unknown | | + + + + + Care Team Providers + +------+ + | Care Track Inspector Name | Role | Phone | + +------+ + PCP | Unavailable | + +------+ + Encounter Details +--------+ + + + + | Date | Type | Department | Care Team | Description | +--------+ + + + + | 11/03/ | Hospital | [facility] | Abdulaziz Albarran MD | Fitting and | | 2010 | Encounter | [facility] | | adjustment of | | | | CLINICAL DECISION | | cardiac pacemaker | | | | [address] | | | | | | [place], [place] | | | | | | [address] | | | | | | [phone] | | | +--------+ + + + [...] | 2019 | Visit | | MD [address] | | | | | | [place] [facility] [place] | | | | | | [address] | | | | | | | | +--------+---------+ + + + documented as of this encounter Procedures + +--------+ + + + | Procedure Name | Priori | Date/Time | Associated Diagnosis | Comments | | | ty | | | | + +--------+ + + + | CV EP PROCEDURE | Routin | 11/03/2010 | | Results for this | | | e | 3:23 PM | | procedure are in the | | | | PST | | results section. | + +--------+ + + + documented in this encounter Results CV EP PROCEDURE (11/03/2010 3:23 PM PST) + + | Specimen | + + | | + + + + + | Narrative | Performed At | + + + | [facility] [address] Ph: | | | Patient Name: SHILA FLAHERTY V Date of : | | | 1930 Medical Record: [id number] Account: [id number] | | | Exam Date/Time: 11/03/2010 13:30 Ordering | | | Physician: ABDULAZIZ ALBARRAN Order Detail: [id number] Exam Description: | | | CCL PACEMAKER GENERATOR REPLACE | | | | | | PROCEDURE 1. Explantation of the previous permanent pacemaker pulse | | | generator. 2. Physiologic assessment of the atrial and ventricular | | | leads. 3. Replacement of the current pacemaker pulse generator. | | | SURGEON Abdulaziz Albarran MD HISTORY The patient is a very pleasant | | | 80-year-old lady who underwent a dual-chamber permanent | | | pacemaker implantation in the past for treatment of sick sinus | | | syndrome. In view of the pacemaker pulse generator approaching end of | | | life, a pulse generator replacement was recommended. DESCRIPTION | | | OF THE PROCEDURE The patient presented to the cardiac | | | catheterization laboratory in the fasting state. Informed consent was | | | obtained from the patient after explaining the risks and benefits of | | | the procedure as well as alternative options. The patient was | | | informed of the risks of bleeding and infection, as well as allergic | | | reaction to administered medications. The left pectoral area was | | | prepped and draped in the usual sterile fashion. Position of the | | | permanent pacemaker pulse generator was identified by fluoroscopy. | | | Subsequently, local anesthetic was given over the area of the | | | previous pulse generator with 1% lidocaine. An incision was made over | | | the area of the pulse generator, trying to avoid the leads with a | | | #10 blade. Subsequent dissection was performed using a tissue | | | scissors as well as a Bovie device. All bleeders were cauterized with | | | the Bovie device. The pacemaker capsule was reached. The capsule | | | was cut open using the #10 blade. The previous pulse generator was | | | explanted. The ventricular lead was disconnected and connected to an | | | alligator clip and the analyzer. Pacing and sensing thresholds were | | | performed and were adequate. The lead was then connected to the new | | | pulse generator. The atrial lead was disconnected, connected to the | | | analyzer. Again, pacing and sensing threshold of the atrial leads was | | | performed and was within acceptable range. The atrial lead was then | | | disconnected from the old pulse generator and connected to the new | | | pulse generator. The pulse generator was then secured inside the | | | pocket using a 2-0 silk suture. The old capsule was then closed over | | | the new pulse generator using 3-0 Vicryl sutures. The subcutaneous | | | tissues were then closed using 3-0 Vicryl sutures and finally the | | | skin was closed using subcuticular suturing with 4-0 Vicryl. | | | Dermabond was applied over the wound as well as a pressure dressing. | | | The patient was discharged out of the catheterization laboratory in | | | stable condition. TECHNICAL DATAPulse generator is a Medtronic, | | | product #ADDR01, serial #[id number]. PHYSIOLOGIC DATA The right | | | atrial lead was a Medtronic lead with a serial #[id number]. The | | | sensing threshold on the right atrial lead was 1.3 millivolts. The | | | impedance was 490 ohms and the pacing threshold was 0.9 volts with a | | | pulse width of 0.5 milliseconds. The right ventricular lead was a | | | Medtronic, product #4023, serial #[id number]. The sensing threshold | | | was 9.2 millivolts. The impedance was 462 ohms and the pacing | | | threshold was at 0.7 volts with a pulse width of 0.5 milliseconds. | | | CONCLUSION Successful replacement of the permanent pacemaker pulse | | | generator. RECOMMENDATIONS The patient will be followed by | | | Imelda within 1 week. An interrogation of the new device will be | | | performed within a month. P DT: | | | 11/04/2010 09:27 P //[id number]/ Read by ABDULAZIZ ALBARRAN MD | | | 11/04/2010 06:59 P Electronically signed by ABDULAZIZ ALBARRAN MD on | | | 11/21/2010 8:23 PM | | + + + + + | Procedure Note | + + | Lenny Vazquez Conversion - 05/23/2019 1:39 PM PDT | | [facility] | | [facility] [address] | | | | | | Patient Name: SHILA FLAHERTY V | | Date of : 1930 | | Medical Record: [id number] | | Account: [id number] | | | | | | Exam Date/Time: 11/03/2010 13:30 | | Ordering Physician: ABDULAZIZ ALBARRAN | | Order Detail: [id number] | | Exam Description: CCL PACEMAKER GENERATOR REPLACE | | | | PROCEDURE | | 1. Explantation of the previous permanent pacemaker pulse generator. | | 2. Physiologic assessment of the atrial and ventricular leads. | | 3. Replacement of the current pacemaker pulse generator. | | | | SURGEON | | Abdulaziz Albarran MD | | | | HISTORY | | The patient is a very pleasant 80-year-old lady who underwent | | a dual-chamber permanent pacemaker implantation in the past for | | treatment of sick sinus syndrome. In view of the pacemaker pulse | | generator approaching end of life, a pulse generator replacement was | | recommended. | | | | DESCRIPTION OF THE PROCEDURE | | The patient presented to the cardiac catheterization laboratory in the | | fasting state. Informed consent was obtained from the patient after | | explaining the risks and benefits of the procedure as well as | | alternative options. The patient was informed of the risks of bleeding | | and infection, as well as allergic reaction to administered medications. | | The left pectoral area was prepped and draped in the usual sterile | | fashion. Position of the permanent pacemaker pulse generator was | | identified by fluoroscopy. Subsequently, local anesthetic was given over | | the area of the previous pulse generator with 1% lidocaine. An incision | | was made over the area of the pulse generator, trying to avoid the leads | | with a #10 blade. Subsequent dissection was performed using a tissue | | scissors as well as a Bovie device. All bleeders were cauterized with | | the Bovie device. The pacemaker capsule was reached. The capsule was | | cut open using the #10 blade. The previous pulse generator was | | explanted. The ventricular lead was disconnected and connected to an | | alligator clip and the analyzer. Pacing and sensing thresholds were | | performed and were adequate. The lead was then connected to the new | | pulse generator. The atrial lead was disconnected, connected to the | | analyzer. Again, pacing and sensing threshold of the atrial leads was | | performed and was within acceptable range. The atrial lead was then | | disconnected from the old pulse generator and connected to the new pulse | | generator. The pulse generator was then secured inside the pocket using | | a 2-0 silk suture. The old capsule was then closed over the new pulse | | generator using 3-0 Vicryl sutures. The subcutaneous tissues were then | | closed using 3-0 Vicryl sutures and finally the skin was closed using | | subcuticular suturing with 4-0 Vicryl. Dermabond was applied over the | | wound as well as a pressure dressing. The patient was discharged out of | | the catheterization laboratory in stable condition. | | | | TECHNICAL DATAPulse generator is a cafegive, product #ADDR01, serial | | #[id number]. | | | | PHYSIOLOGIC DATA | | The right atrial lead was a Medtronic lead with a serial #[id number]. | | The sensing threshold on the right atrial lead was 1.3 millivolts. The | | impedance was 490 ohms and the pacing threshold was 0.9 volts with a | | pulse width of 0.5 milliseconds. | | | | The right ventricular lead was a cafegive, product #4023, serial | | #[id number]. The sensing threshold was 9.2 millivolts. The impedance was | | 462 ohms and the pacing threshold was at 0.7 volts with a pulse width of | | 0.5 milliseconds. | | | | CONCLUSION | | Successful replacement of the permanent pacemaker pulse generator. | | | | RECOMMENDATIONS | | The patient will be followed by Dr. Segura within 1 week. An interrogation | | of the new device will be performed within a month. | | | | P | | P | | //[id number]/ | | | | Read by | | ABDULAZIZ ALBARRAN MD 11/04/2010 06:59 P | | | | | + + documented in this encounter Visit Diagnoses + + | Diagnosis | + + | Fitting and adjustment of cardiac pacemaker | + + documented in this encounter"
--- OUTSIDE RECORDS SUMMARY | ~2020-02-22 | XMS | Encounter Summary ---
Demographics + + + | Address | [address] | | | [place] [address] | + + + | Home Phone | | + + + | Preferred Language | Unknown | + + + | Marital Status | | + + + | Alevism Affiliation | 1077 | + + + [...] | Boo Flaherty | ECON | , [address] | | + + + + + | Edyta Pickett | ECON | Unknown | | + + + + + Care Team Providers + +------+ + | Care Sales Manager Name | Role | Phone | + [...] | +--------+ + + + + | 11/10/ | Procedure | [facility] | | Presence of cardiac | | 2020 | visit | CARDIOLOGY [place] | | pacemaker | | | | [address] | | | | | | [place] | | | | | | [address] | | | | | | [phone] | | | +--------+ + + + [...] | | | | | | [place], [place] | | | | | | [address] | | | | | | | | +--------+---------+ + + + documented as of this encounter Procedures + +--------+ + + + | Procedure Name | Priori | Date/Time | Associated Diagnosis | Comments | | | ty | | | | + +--------+ + + + | DEVICE | Routin | 11/10/2019 | Presence of | Results for this | | INTERROGATION- | e | 8:10 AM | cardiac pacemaker | procedure are in the | | REMOTE | | PST | | results section. | + +--------+ + + + documented in this encounter Results Device Interrogation - Remote (11/10/2019 8:10 AM PST) + + + | Narrative | Performed At | + + + | Rosa C[facility]denas | [facility] | | KODY Denney 11/10/2019 11:31 IMANI REMOTE INTERROGATION | | | REPORT Name: Mary Serrano Krystina PCP: Zackary Kearns MD : | | | 1930MRN: [id number] Primary cardiology provider: Benson | | | Meg Primary electrophysiology provider: Olesya Cuevas Device | | | partner: Fluid Device type: Biventricular Battery Longevity: | | | 7.9-8.1 years. RA Pacin% RV Pacing: >99%BiV Pacing: >99% | | | INTERROGATION RESULTS:Please see the full interrogation report | | | attached Known history of atrial flutter or atrial fibrillation: | | | YesCurrent antithrombotic therapy including: aspirin Mode switches: | | | Since last Remote on 08/11/19 there have been 9 AT/AF events noted, 3 | | | EGMs are available for viewing, pt does have hx of a-fibLongest | | | episode: 11/07/19 @ 1016 lasting for 20 sec with a peak atrial rate of | | | 210 bpmFastest episode: 10/13/19 @ 1009 lasting for 14 sec with a peak | | | atrial rate of 216 bpm Ventricular high rate episodes: None. Lead | | | function: Lead impedance and threshold value trends have been reviewed | | | and are acceptable based on most recent evaluation Follow up: The | | | next scheduled interrogation will be in 3 months via remote | | | transmission. Additional comments: None. IMPRESSION:1. Normal | | | pacemaker function.2. Atrial event as noted above.3. No ventricular | | | high rate episodes were noted. Testing reviewed by: Suzi Denney RN | | | | | |Known history of atrial flutter or atrial fibrillation: Yes | | |Current antithrombotic therapy including: aspirin | | | | | |Mode switches: Since last Remote on 08/11/19 there have been 9 | | |AT/AF events noted, 3 EGMs are available for viewing, pt does | | |have hx of a-fib | | |Longest episode: 11/07/19 @ 1016 lasting for 20 sec with a peak | | |atrial rate of 210 bpm | | |Fastest episode: 10/13/19 @ 1009 lasting for 14 sec with a peak | | |atrial rate of 216 bpm | | | | | | | | |Ventricular high rate episodes: None. | | | | | |Lead function: Lead impedance and threshold value trends have | | |been reviewed and are acceptable based on most recent evaluation | | | | | |Follow up: The next scheduled interrogation will be in 3 months | | |via remote transmission. | | | | | |Additional comments: None. | | | | | |IMPRESSION: | | |1. Normal pacemaker function. | | |2. Atrial event as noted above. | | |3. No ventricular high rate episodes were noted. | | | | | |Testing reviewed by: Suzi Denney RN | | | | | | | | + + + + +---------+ + + | Performing | Address | City/State/Zipcode | Phone Number | | Organization | | | | + +---------+ + + | [facility] | | | | + +---------+ + + documented in this encounter Visit Diagnoses + + | Diagnosis | + + | Presence of cardiac pacemaker Cardiac pacemaker in situ | + + documented in this encounter"
--- OUTSIDE RECORDS SUMMARY | ~2020-02-22 | XMS | Encounter Summary ---
Demographics + + + | Address | [address] | | | [place] [address] | + + + | Home Phone | | + + + | Preferred Language | Unknown | + + + | Marital Status | | + + + | Taoism Affiliation | 1077 | + + + | Race | Unknown | + + + | Ethnic Group | Unknown | + + + Author + + + | Author | [facility] | | | and [place] | + + + | Organization | [facility] | | | and [place] | + + + | Address | Unknown | + + + | Phone | Unavailable | + + + Support + + + + + | Name | Relationship | Address | Phone | + + + + + | Boo Flaherty | ECON | , [address] | | + + + + + | Edyta Pickett | ECON | Unknown | | + + + + + Care Team Providers + +------+ + | Care Log Yard Manager Name | Role | Phone | + +------+ + | Zackary Kearns MD | PCP | | + +------+ + Reason for Visit + + + | Reason | Comments | + + + | Device Check | Routine | | (Remote) | | + + + Encounter Details +--------+ + + + + | Date | Type | Department | Care Team | Description | +--------+ + + + + | 08/11/ | Procedure | [facility] | | Cardiac pacemaker in | | 2019 | visit | [facility]ARDIOLOGY [place] | | situ (Primary Dx) | | | | [address] | | | | | | [place] | | | | | | [address] | | | | | | [phone] | | | +--------+ + + + [...] | | | | | | [place], [place] | | | | | | [address] | | | | | | | | +--------+---------+ + + + documented as of this encounter Procedures + +--------+ + + + | Procedure Name | Priori | Date/Time | Associated Diagnosis | Comments | | | ty | | | | + +--------+ + + + | DEVICE | Routin | 08/11/2019 | Cardiac pacemaker | Results for this | | INTERROGATION- | e | 12:00 AM | in situ | procedure are in the | | REMOTE | | PST | | results section. | + +--------+ + + + documented in this encounter Results Device Interrogation - Remote (08/11/2019 12:00 AM PST) + + + | Narrative | Performed At | + + + | Gopal Angeles, | [facility] | | Technologist 08/11/2019 1:34 PMPACEMACLAY REMOTE INTERROGATION | | | REPORT Name: Mary Serrano Krystina PCP: Zackary Kearns MD : | | | 1930MRN: [id number] Primary cardiology provider: Benson | | | Meg Primary electrophysiology provider: Andrew Liang Device | | | hot mill operator: SIPX Device type: Biventricular Battery Longevity: 7.7 | | | years RA Pacin% RV Pacing: >99% INTERROGATION RESULTS:Please | | | see the full interrogation report attached Known history of atrial | | | flutter or atrial fibrillation: YesCurrent antithrombotic therapy | | | including: aspirin Mode switches: 18 At/AF events longest 42 seconds | | | on 07/07/19 at 1412. Ventricular high rate episodes: None. Lead | | | function: Lead impedance and threshold value trends have been reviewed | | | and RA lead not performed sense shows 1.0MV <2:1 safety margin RV/LV | | | Leads ok CHF: Congestive heart failure parameters and trends have been | | | reviewed and are stable Follow up: The next scheduled interrogation | | | will be in 3 months via remote transmission. Additional comments: | | | None. IMPRESSION:1. Normal pacemaker function.2. AMS events listed | | | above.3. No ventricular high rate episodes were noted. Testing | | | reviewed by: Gopal Fraire | | |INTERROGATION RESULTS: | | |Please see the full interrogation report attached | | | | | |Known history of atrial flutter or atrial fibrillation: Yes | | |Current antithrombotic therapy including: aspirin | | | | | |Mode switches: 18 At/AF events longest 42 seconds on 07/07/19 at | | |1412. | | | | | |Ventricular high rate episodes: None. | | | | | |Lead function: Lead impedance and threshold value trends have | | |been reviewed and RA lead not performed sense shows 1.0MV <2:1 | | |safety margin RV/LV Leads ok | | | | | |CHF: Congestive heart failure parameters and trends have been | | |reviewed and are stable | | | | | |Follow up: The next scheduled interrogation will be in 3 months | | |via remote transmission. | | | | | |Additional comments: None. | | | | | |IMPRESSION: | | |1. Normal pacemaker function. | | |2. AMS events listed above. | | |3. No ventricular high rate episodes were noted. | | | | | |Testing reviewed by: Gopal Fraire | | | | | | | | + + + + + | Procedure Note | + + | Gopal Angeles, Technologist - 08/11/2019 8:10 AM PST Formatting of this note might | | be different from the original.PACEMAKER REMOTE INTERROGATION REPORT Name: Mary Serrano | | [place] PCP: Zackary Kearns MD : 1930MRN: [id number] Primary cardiology | | provider: Benson Weaver Primary electrophysiology provider: Andrew Liang Device | | hot mill operator: AbbottDevice type: BiventricularBattery Longevity: 7.7 years RA Pacing: | | 48% RV Pacing: >99%INTERROGATION RESULTS:Please see the full interrogation report | | attached Known history of atrial flutter or atrial fibrillation: YesCurrent | | antithrombotic therapy including: aspirinMode switches: 18 At/AF events longest 42 | | seconds on 07/07/19 at 1412.Ventricular high rate episodes: None.Lead function: Lead | | impedance and threshold value trends have been reviewed and RA lead not performed sense | | shows 1.0MV <2:1 safety margin RV/LV Leads okCHF: Congestive heart failure parameters | | and trends have been reviewed and are stableFollow up: The next scheduled interrogation | | will be in 3 months via remote transmission. Additional comments: None.IMPRESSION:1. | | Normal pacemaker function.2. AMS events listed above.3. No ventricular high rate | | episodes were noted.Testing reviewed by: Gopal Fraire | |RA Pacin% | |RV Pacing: >99% | | | | | |INTERROGATION RESULTS: | |Please see the full interrogation report attached | | | |Known history of atrial flutter or atrial fibrillation: Yes | |Current antithrombotic therapy including: aspirin | | | |Mode switches: 18 At/AF events longest 42 seconds on 07/07/19 at 1412. | | | |Ventricular high rate episodes: None. | | | |Lead function: Lead impedance and threshold value trends have been reviewed and RA lead not performed sense shows 1.0MV <2:1 safety margin RV/LV Leads ok | | | |CHF: Congestive heart failure parameters and trends have been reviewed and are stable | | | |Follow up: The next scheduled interrogation will be in 3 months via remote transmission. | | | |Additional comments: None. | | | |IMPRESSION: | |1. Normal pacemaker function. | |2. AMS events listed above. | |3. No ventricular high rate episodes were noted. | | | |Testing reviewed by: Gopal Fraire | + + + +---------+ + + [...]
--- OUTSIDE RECORDS SUMMARY | ~2020-02-22 | XMS | Encounter Summary ---
Demographics + + + | Address | [address] | | | [place] [address] | + + + | Home Phone | | + + + | Preferred Language | Unknown | + + + | Marital Status | | + + + | Rastafari Affiliation | 1077 | + + + | Race | Unknown | + + + | Ethnic Group | Unknown | + + + Author + + + | Author | [facility] | | | and [place] | + + + | Organization | [facility] | | | and [place] | + + + | Address | Unknown | + + + | Phone | Unavailable | + + + Support + + + + + | Name | Relationship | Address | Phone | + + + + + | Boo Flaherty | ECON | , [address] | | + + + + + | Edytakrystle Pickett | ECON | Unknown | | + + + + + Care Team Providers + +------+ + | Care Seafood Packer Name | Role | Phone | + +------+ + PCP | Unavailable | + +------+ + Encounter Details +--------+ + + + + | Date | Type | Department | Care Team | Description | +--------+ + + + + | 06/13/ | Hospital | [facility] | Michael Cornelius | [address] | | 2001 - | Encounter | [facility] | [address] | | | | | CLINICAL DECISION | [address] [place], [place] | | | 06/14/ | | [address] | [address] | | | 2001 | | [place], [place] | | | | | | [address] | | | | | | [phone] | | | +--------+ + + + [...] [place] | | | | | | [address] | | | | | | | | +--------+---------+ + + + documented as of this encounter Visit Diagnoses + + | Diagnosis | + + | Trifascicular block | + + documented in this encounter"
--- OUTSIDE RECORDS SUMMARY | ~2020-02-22 | XMS | Encounter Summary ---
Demographics + + + | Address | [address] | | | [place] [address] | + + + | Home Phone | | + + + | Preferred Language | Unknown | + + + | Marital Status | | + + + | Pentecostal Affiliation | 1077 | + + + | Race | Unknown | + + + | Ethnic Group | Unknown | + + + Author + + + | Author | [facility] | | | and [place] | + + + | Organization | [facility] | | | and [place] | + + + | Address | Unknown | + + + | Phone | Unavailable | + + + Support + + + + + | Name | Relationship | Address | Phone | + + + + + | Boo Flaherty | ECON | , [address] | | + + + + + | Edytakrystle Pickett | ECON | Unknown | | + + + + + Care Team Providers + +------+ + | Care Milling General Superintendent Name | Role | Phone | + +------+ + PCP | Unavailable | + +------+ + Encounter Details +--------+ + + + + | Date | Type | Department | Care Team | Description | +--------+ + + + + | 06/13/ | Hospital | [facility] | Michael Cornelius | [address] | | 2001 - | Encounter | [facility] | [address] | | | | | CLINICAL DECISION | [address] [place], [place] | | | 06/14/ | | [address] | [address] | | | 2001 | | [place], [place] | | | | | | [address] | | | | | | [phone] | | | +--------+ + + + [...] [place] | | | | | | [address] | | | | | | | | +--------+---------+ + + + documented as of this encounter Visit Diagnoses + + | Diagnosis | + + | Trifascicular block | + + documented in this encounter"
--- OUTSIDE RECORDS SUMMARY | ~2020-02-22 | XMS | Encounter Summary ---
Demographics + + + | Address | [address] | | | [place] [address] | + + + | Home Phone | | + + + | Preferred Language | Unknown | + + + | Marital Status | | + + + | Restorationism Affiliation | 1077 | + + + | Race | Unknown | + + + | Ethnic Group | Unknown | + + + Author + + + | Author | [facility] | | | and [place] | + + + | Organization | [facility] | | | and [place] | + + + | Address | Unknown | + + + | Phone | Unavailable | + + + Support + + + + + | Name | Relationship | Address | Phone | + + + + + | Boo Flaherty | ECON | , [address] | | + + + + + | Edytakrystle Pickett | ECON | Unknown | | + + + + + Care Team Providers + +------+ + | Care System Development Engineer Name | Role | Phone | + +------+ + PCP | Unavailable | + +------+ + Encounter Details +--------+ + + + + | Date | Type | Department | Care Team | Description | +--------+ + + + + | 12/04/ | Hospital | [facility] | Conversion | 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 Pt educated about discharge, discharge instruction, pt medications and prescription discussed. Pt verbalized understanding. Neto Bullock RN uAndrew veloz MD - 12/05/2017 6:11 AM PST Progress Notes by Andrew Liang MD at 12/05/17 0611 Author: Andrew Liang MD Service: Cardiology Author Type: Physician Filed: 12/05/17 0846 Date of Service: 12/05/17610 Status: Addendum Industrial Psychology Professor: Andrew Liang MD (Physician) Related Notes: Original Note by Olesya Cuevas NP (Nurse Practitioner) filed at 12/05/1703 17 [facility] PATIENT NAME: Mary Flaherty : 1930: AGE: 87 y.o. ADMISSION DATE: 12/04/2017 Hospital Day # 0 Date of Service: 12/05/2017 Principal Hospital Problem: BiV Upgrade Code Status: Full Code PRIMARY CARE: KYRA Cuevas [facility] PROGRESS NOTE Events since last [...] placed on 06/13/[address] Carrol Mauricio [facility], [facility], and gen-change was preformed on 11/03/[address] David Albarran MD Medtronic - Pacemaker. Model-S/N: Adapta ADDR01 - [id number]. 11/28/2017 DIVISION CHAIR-P risk, benefits, procedure, and consent was completed during this visit.She has a high ventricular pacing burden (100%) and her LV systolic function has deteriorated. A recent ej ection fraction is 35-40%, so an upgrade to a DIVISION CHAIR pacemaker has been recommended. She has cl [...] (none) Author Type: Registered Nurse Filed: 12/05/17 6803 Date of Service: 03/08/18 0040 Status: Signed Industrial Psychology Professor: Maria De Jesus Nuñez RN (Registered Nurse) [...] 12/03/171749 Date of Service: 12/03/171742 Status: Signed Industrial Psychology Professor: Yvonne Duran RN (Registered Nurse) [facility] Pre-Procedure Telephone Call Date 12/03/2017 5:43 PM Type of Procedure: BIV Gen Change Spoke with: Patient Software Asset Management Analyst needed: No Arrival Time: 1430 NPO from: 629 Diabetic: No If Yes are they on Glucophage/Metformin No Date of last Dose NA Is patient on Anticoagulants No Date of Last Dose NA Iodine Allergy? No Action: NA, Pre-medicated and Physician Notified Bring a list of your medications/dosages: yes *Fern Cutter home* yes *Check in at Main Lobby* [...] [place] | | | | | | [address] | | | | | | | [...] NEGATIVE Testing | | | performed at [facility];[address] [facility];[place] [address] | | + + + + +---------+ [...]
--- OUTSIDE RECORDS SUMMARY | ~2020-02-22 | XMS | Encounter Summary ---
Demographics + + + | Address | [address] | | | [place] [address] | + + + | Home Phone | | + + + | Preferred Language | Unknown | + + + | Marital Status | | + + + | Jain Affiliation | 1077 | + + + | Race | Unknown | + + + | Ethnic Group | Unknown | + + + Author + + + | Author | [facility] | | | and [place] | + + + | Organization | [facility] | | | and [place] | + + + | Address | Unknown | + + + | Phone | Unavailable | + + + Support + + + + + | Name | Relationship | Address | Phone | + + + + + | Boo Flaherty | ECON | , [address] | | + + + + + | Edytakrystle Pickett | ECON | Unknown | | + + + + + Care Team Providers + +------+ + | Care Blow Mold Operator Name | Role | Phone | + +------+ + PCP | Unavailable | + +------+ + Encounter Details +--------+ + + + + | Date | Type | Department | Care Team | Description | +--------+ + + + + | 10/10/ | Hospital | [facility] | Conversion | Essential | | 2018 | Encounter | [facility] | Transaction, | hypertension; | | | | CLINICAL DECISION | Provider Unknown | Systolic | | | | [address] | [phone] | dysfunction; | | | | [place], [place] | | Presence of cardiac | | | | [address] | [place], [place], | pacemaker | | | | [phone] | MD Stu ANDERSON | | | | | | [place], [place] | | | | | | [address] | | | | | | | [...] + + + | Blood Pressure | 118/59 | 10/10/2017 3:05 PM | | | | | PST | | + + + + + | Pulse | 63 | 10/10/2017 3:05 PM | | | | | PST | | + + + + + | Temperature | 36.7 C (98.1 F) | 10/10/2017 3:05 PM | | | | | PST | | + + + + + | Respiratory Rate | 17 | 10/10/2017 3:05 PM | | | | | PST | | + + + + + | Oxygen Saturation | - | - | | + + + + + | Inhaled Oxygen | - | - | | | Concentration | | | | + + + + + | Weight | 62.4 kg (137 lb 9.1 | 10/10/2017 3:05 PM | | | | oz) | PST | | + + + + + | Height | 160 cm (5' 3") | 10/10/2017 3:05 PM | | | | | PST | | + + + + + | Body Mass Index | 24.37 | 10/10/2017 3:05 PM | | | | | PST [...] | 0 | 07/29/20 | | | (MANOLO-EDWARD M20) 20 | 2 (two) times | [...] Progress Notes Conversion Transaction, Provider Unknown - 10/10/2017 3:39 PM PSTFormatting of this note m ight be different from the original. Nurse Progress Note by Marcia Earl RN at 10/10/17 1539 Author: Marcia Earl RN Service: (none) Author Type: Registered Nurse Filed: 10/10/17 1541 Date of Service: 10/10/17 153 Status: Signed Motor Room Controller: Marcia Earl RN (Registered Nurse) Groin site remains in tact, no new drainage on bandage. CMS in tact. Pt given discharge ins tructions with all questions addressed, Pt has family to drive her home. Left the unit in st able condition via wheelchair. onver aziza Transaction, Provider Unknown - 10/10/2017 3:05 PM PST Nurse Progress Note by Marcia Earl RN at 10/10/17 1502 Author: Marcia Earl RN Service: (none) Author Type: Registered Nurse Filed: 10/10/17 1542 Date of Service: 10/10/171504 Status: Addendum Motor Room Controller: Marcia Earl RN (Registered Nurse) Related Notes: Original Note by Marcia Earl RN (Registered Nurse) filed at 09/30 10/17 1507 Pt tolerated 3 hours bedrest post hemostasis well. Pt ambulated to bathroom, voided, denies pain, SOB, or N/V at this time. No new drainage on groin dressing, CMS remains in tact. Pt meeting discharge criteria at this time. onver aziza Bhakta, Provider Unknown - 10/09/2017 5:55 PM PST Nurse Progress Note by Erasto Quintero RN at 10/09/171754 Author: Erasto Quintero RN Service: (none) Author Type: Registered Nurse Filed: 10/09/17 1758 Date of Service: 10/09/171754 Status: Signed Motor Room Controller: Erasto Quintero RN (Registered Nurse) [facility] Pre-Procedure Telephone Call Type of Procedure [facility] Spoke with: Patient Health Program Director needed: No Kinyarwanda No Austrian No Other: Health Program Director arranged: No Arrival Time: 0900 Check In Location: Main loby Ride and Caregiver: Phone Number for Ride/Caregiver: NPO from: 8hrs prior Diabetic: No If Yes are they on Glucophage/Metformin No Date of last Dose {Blank single:[id number]::"NA" Is patient on Anticoagulants No Date of Last Dose NA Iodine Allergy? No Action: NA, Pre-medicated and Physician Notified Latex Allergy? No Patient informed to bring (medication list, etc): yes Any other comments: Erasto Quintero RN docume nted in this encounter Plan of Treatment +--------+---------+ + + + | Date | Type | Specialty | Care Team | Description | +--------+---------+ + + + | 05/18/ | Office | Cardiology | Benson Weaver, | | | 2019 | Visit | | [address] | | | | | | [place] | | | | | | [address] | | | | | | | | +--------+---------+ + + + documented as of this encounter Procedures + +--------+ + + + | Procedure Name | Priori | Date/Time | Associated Diagnosis | Comments | | | ty | | | | + +--------+ + + + | CV VASCULAR | Routin | 10/10/2017 | | Results for this | | PROCEDURE | e | 11:58 AM | | procedure are in the | | | | PST | | results section. | + +--------+ + + + | EXTERNAL LAB: CBC | Routin | 10/10/2017 | | Results for this | | | e | 9:19 AM | | procedure are in the | | | | PST | | results section. | + +--------+ + + + | BASIC METABOLIC | Routin | 10/10/2017 | | Results for this | | PANEL | e | 9:19 AM | | procedure are in the | | | | PST | | results section. | + +--------+ + + + documented in this encounter Results CV VASCULAR PROCEDURE (10/10/2017 11:58 AM PST) + + | Specimen | + + | | + + + + + | Narrative | Performed At | + + + | This Point of Care (POC) ultrasound image has been reviewed and | | | interpreted by the physician identified as the performing physician in | | | the associated interpretation and report. | | + + + + + | Procedure Note | + + | Lenny Vazquez - 05/20/2019 3:40 PM PDT This Point of Care (POC) ultrasound | | image has been reviewed andinterpreted by the physician identified as the performing | | physician in theassociated interpretation and report. | | | + + External Lab: CBC (10/10/2017 9:19 AM PST) + + + + + + | Component | Value | Ref Range | Performed | Pathologist | | | | | At | Signature | + + + + + + | WBC | 6.47 | 3.80 - 11.00 | EXTERNAL | | | | | K/uL | LAB | | + + + + + + | Red Blood | 4.33 | 3.70 - 5.10 | EXTERNAL | | | Cells | | M/uL | LAB | | | Counted | | | | | + + + + + + | Hemoglobin | 13.9 | 11.3 - 15.5 | EXTERNAL | | | | | g/dL | LAB | | + + + + + + | Hematocrit, | 40.2 | 34.0 - 46.0 % | EXTERNAL | | | POC | | | LAB | | + + + + + + | MCV | 92.9 | 80.0 - 100.0 fl | EXTERNAL | | | | | | LAB | | + + + + + + | MCH | 32.0 | 27.0 - 34.0 pg | EXTERNAL | | | | | | LAB | | + + + + + + | MCHC | 34.4 | 32.0 - 35.5 | EXTERNAL | | | | | g/dL | LAB | | + + + + + + | RDW-CV | 45.1 | 37 - 53 fl | EXTERNAL | | | | | | LAB | | + + + + + + | Platelet | 180 | 150 - 400 K/uL | EXTERNAL | | | Count | | | LAB | | | Plasma | | | | | + + + + + + | MPV | 8.5 | fl | EXTERNAL | | | | | | LAB | | + + + + + + | Differentia | AUTOMATED | | EXTERNAL | | | l Type | | | LAB | | + + + + + + | % Segmented | 63.24 | % | EXTERNAL | | | | | | LAB | | | Neutrophils | | | | | + + + + + + | % | 25.71 | % | EXTERNAL | | | Lymphocytes | | | LAB | | + + + + + + | % Monocytes | 7.99 | % | EXTERNAL | | | | | | LAB | | + + + + + + | % | 2.58 | % | EXTERNAL | | | Eosinophils | | | LAB | | + + + + + + | % Basophils | 0.48 | % | EXTERNAL | | | | | | LAB | | + + + + + + | Absolute | 4.10 | 1.90 - 7.40 | EXTERNAL | | | Segmented | | K/uL | LAB | | | Neutrophils | | | | | + + + + + + | Absolute | 1.67 | 1.00 - 3.90 | EXTERNAL | | | Lymphocytes | | K/uL | LAB | | + + + + + + | Absolute | 0.52 | 0.00 - 0.80 | EXTERNAL | | | Monocytes | | K/uL | LAB | | + + + + + + | Absolute | 0.17 | 0.00 - 0.50 | EXTERNAL | | | Eosinophils | | K/uL | LAB | | + + + + + + | Absolute | 0.03Comment: Testing | 0.00 - 0.10 | EXTERNAL | | | Basophils | performed at [facility];[address] | LAB | | | | [address];[place], [place] | | | | | | [address] | | | | + + + + + + + + | Specimen | + + | Blood specimen | | (specimen) | + + + +---------+ + + | Performing | Address | City/State/Zipcode | Phone Number | | Organization | | | | + +---------+ + + | EXTERNAL LAB | | | | + +---------+ + + Basic Metabolic Panel (10/10/2017 9:19 AM PST) + + + + + + | Component | Value | Ref Range | Performed | Pathologist | | | | | At | Signature | + + + + + + | Na | 140 | 135 - 145 | EXTERNAL | | | | | mmol/L | LAB | | + + + + + + | K | 3.7 | 3.5 - 4.9 | EXTERNAL | | | | | mmol/L | LAB | | + + + + + + | Cl | 107 | 99 - 109 mmol/L | EXTERNAL | | | | | | LAB | | + + + + + + | CO2 | 25 | 23 - 32 mmol/L | EXTERNAL | | | | | | LAB | | + + + + + + | Anion Gap | 12 | 5 - 20 mmol/L | EXTERNAL | | | | | | LAB | | + + + + + + | Glucose, | 86 | 65 - 99 mg/dL | EXTERNAL | | | Fasting | | | LAB | | + + + + + + | BUN | 21 | 8 - 25 mg/dL | EXTERNAL | | | | | | LAB | | + + + + + + | Creatinine | 0.77 | 0.50 - 1.00 | EXTERNAL | | | | | mg/dL | LAB | | + + + + + + | BUN/Creatin | 28 | | EXTERNAL | | | ine Ratio | | | LAB | | + + + + + + | Calcium | 9.1 | 8.5 - 10.5 | EXTERNAL | | | | | mg/dL | LAB | | + + + + + + | Estimated | >60Comment: GFR <60: | mL/min/1.73m2 | EXTERNAL | | | GFR | CHRONIC KIDNEY DISEASE, | | LAB | | | | IF FOUND OVER A 3 MONTH | | | | | | PERIOD.GFR <15: KIDNEY | | | | | | FAILURE.FOR | | | | | | AMERICANS, MULTIPLY THE | | | | | | CALCULATED GFR BY | | | | | | 1.210.Testing performed | | | | | | at [facility] [address] | | | | | | [address];[place] [address] | | | | + + + + + + + + | Specimen | + + | Blood specimen | | (specimen) | + + + +---------+ + + | Performing | Address | City/State/Zipcode | Phone Number | | Organization | | | | + +---------+ + + | EXTERNAL LAB | | | | + +---------+ + + documented in this encounter Visit Diagnoses + + | Diagnosis | + + | Essential hypertension Unspecified essential hypertension | + + | Systolic dysfunction Heart disease, unspecified | + + | Presence of cardiac pacemaker Cardiac pacemaker in situ | + + documented in this encounter
--- OUTSIDE RECORDS SUMMARY | ~2020-02-22 | XMS | Encounter Summary ---
Demographics + + + | Address | [address] | | | [place] [address] | + + + | Home Phone | | + + + | Preferred Language | Unknown | + + + | Marital Status | | + + + | Yazidism Affiliation | 1077 | + + + | Race | Unknown | + + + | Ethnic Group | Unknown | + + + Author + + + | Author | [facility] | | | and [place] | + + + | Organization | [facility] | | | and [place] | + + + | Address | Unknown | + + + | Phone | Unavailable | + + + Support + + + + + | Name | Relationship | Address | Phone | + + + + + | Boo Flaherty | ECON | , [address] | | + + + + + | Edyta Pickett | ECON | Unknown | | + + + + + Care Team Providers + +------+ + | Care Skein Mercerizing Machine Operator Name | Role | Phone | [...] + | 05/17/ | Refill | [facility] | Benson Weaver, | Medication Refill | | 2019 | | CARDIOLOGY [place] | MD Stu ANDERSON | | | | | [address] | [place], [place] | | | | | [place], [place] | [address] | | | | | [address] | | | | | | [phone] | | | +--------+--------+ + + + [...] | | | | | [place] | | | | | | [address] | | | | | | | | +--------+---------+ + + + documented as of this encounter Visit Diagnoses Not on filedocumented in this encounter"
--- OUTSIDE RECORDS SUMMARY | ~2020-02-22 | XMS | Encounter Summary ---
Demographics + + + | Address | [address] | | | [place] [address] | + + + | Home Phone | | + + + | Preferred Language | Unknown | + + + | Marital Status | | + + + | Episcopal Affiliation | 1077 | + + + | Race | Unknown | + + + | Ethnic Group | Unknown | + + + Author + + + | Author | [facility] | | | and [place] | + + + | Organization | [facility] | | | and [place] | + + + | Address | Unknown | + + + | Phone | Unavailable | + + + Support + + + + + | Name | Relationship | Address | Phone | + + + + + | Boo Flaherty | ECON | , [address] | | + + + + + | Edyta Pickett | ECON | Unknown | | + + + + + Care Team Providers + +------+ + | Care Wire Mesh Filter Fabricator Name | Role | Phone | + +------+ + | Zackary Kearns MD | PCP | | + +------+ + Encounter Details +--------+ + + + + | Date | Type | Department | Care Team | Description | +--------+ + + + + | 11/03/ | Orders Only | [facility] | David Albarran MD | | | 2010 | | [facility] | | | | | | CLINICAL LABORATORY | | | | | | [address] | | | | | | [place], [place] | | | | | | [address] | | | | | | [phone] | | | +--------+ + + + [...] | | | | | | [place] | | | | | | [address] | | | | | | | | +--------+---------+ + + + documented as of this encounter Procedures + +--------+ + + + | Procedure Name | Priori | Date/Time | Associated Diagnosis | Comments | | | ty | | | | + +--------+ + + + | MRSA NAAT | Timed | 11/03/2010 | | Results for this | | | | 2:32 PM | | procedure are in the | | | | PST | | results section. | + +--------+ + + + documented in this encounter Results MRSA NAAT (11/03/2010 2:32 PM PST) + + | Specimen | + + | | + + + + + | Narrative | Performed At | + + + | [facility]) | EXTERNAL LAB | | Testing performed at [facility];[address] [place] [address];[place] [address] MRSA PCR | | | NEGATIVE Testing performed at | | | [address];[place] [address] | | + + + + +---------+ + + | Performing | Address | City/State/Zipcode | Phone Number | | Organization | | | | + +---------+ + + | EXTERNAL LAB | | | | + +---------+ + + documented in this encounter Visit Diagnoses Not on filedocumented in this encounter"
--- OUTSIDE RECORDS SUMMARY | ~2020-02-22 | XMS | Clinical Summary ---
Demographics + + + | Address | [address] | | | [place] [address] | + + + | Home Phone | | + + + | Preferred Language | Unknown | + + + | Marital Status | | + + + | Restorationist Affiliation | 1077 | + + + | Race | Unknown | + + + | Ethnic Group | Unknown | + + + Author + + + | Author | [facility] (Historical as of | | | 05-16-19) | + + + | Organization | [facility] (Historical as of | | | 05-16-19) | + + + | Address | Unknown | + + + | Phone | Unavailable | + + + Support + + + + + | Name | Relationship | Address | Phone | + + + + + | Boo Flaherty | ECON | , [address] | | + + + + + | Edyta Pickett | ECON | Unknown | | + + + + + Care Team Providers + +------+ + | Care Fan Engine Engineer Name | Role | Phone | [...] replaced 11/03/2010, Medtronic ADDR01, SN: | | [id number].Last interrogation, 05/23/2016: battery at 2.77V, | | [...] Pacemaker. Model-S/N: Masha ADDYee01 - | | [id number]/28/2017Umm has a high ventricular pacing burden (100%) | | and her LV systolic function has deteriorated. A recent ejection | | fraction is 35-40%, so an upgrade to a TOPPIECE CUTTER pacemaker has been | | recommended. She has class III symptoms of heart failure. The | | paced QRS duration was 190 ms on a recent ECG06/19/18:A TOPPIECE CUTTER | | upgrade to a [employer] TOPPIECE CUTTER pacemaker was performed in November 2017. | [...] | [facility] [place], | | 2018 | /[id number] | | Andrew Liang MD | Rhythm [...] +--------+ +--------+ + + | [place] - [place] | [place] - | [phone] | [employer] | [phone] [address] [address] [place] | | HEALTHCARE | [place] | | re | [address] | [place] [address] | | | | | | | [...] cathy | | | [address] | [place] [address] | + +--------+ +--------+ + +
--- OUTSIDE RECORDS SUMMARY | ~2020-02-22 | XMS | Encounter Summary ---
Demographics + + + | Address | [address] | | | [place] [address] | + + + | Home Phone | | + + + | Preferred Language | Unknown | + + + | Marital Status | Single | + + + | Advent Affiliation | Unknown | + + + | Race | Unknown | + + + | Ethnic Group | Other Race | + + + Author + + + | Author | [facility] | + + + | Organization | [facility] | + + + | Address | Unknown | + + + | Phone | Unavailable | + + + Care Team Providers + +------+ + | Care Ticketing Clerk Name | Role | Phone | + +------+ + PCP | Unavailable | + +------+ + Encounter Details +--------+ + + + + | Date | Type | Department | Care Team | Description | +--------+ + + + + | 07/15/ | Hospital | Dermatopathology | | | | 2017 | Encounter | [address] | | | | | | Mailcode: CH16D | | | | | | [facility] | | | | | | and Healing, | | | | | | Building [address], 5th | | | | | | Floor [place], [place] | | | | | | [address] | | | | | | [phone] | | | +--------+ + + + [...] Not on filedocumented as of this encounter Procedures + +--------+ + + + | Procedure Name | Priori | Date/Time | Associated Diagnosis | Comments | | | ty | | | | + +--------+ + + + | DERM PATHOLOGY | Routin | 07/15/2017 | Other viral warts | Results for this | | | e | | | procedure are in the | | | | | | results section. | + +--------+ + + + documented in this encounter Results DERM PATHOLOGY (07/15/2017) + + + + + + | Component | Value | Ref Range | Performed | Pathologist | | | | | At | Signature | + + + + + + | DERMATOPATH | SOURCE OF SPECIMEN:A | | [facility] | | | OLOGY(WET | Right wrist, shave | | DERMATOPATH | | | MNT) | biopsy ED&C | | OLOGY | | | | CLINICAL DESCRIPTION:3 x | | | | | | 4 mm pink verrucous | | | | | | papule; r/o ISK vs | | | | | | verruca vs NMSC. | | | | | | GROSS | | | | | | DESCRIPTION:Received in | | | | | | formalin is a specimen | | | | | | labeled Flaherty, | | | | | | Mary:A: Specimen is | | | | | | labeled "Rt wrist" and | | | | | | consists of an irregular | | | | | | shave ofscaly papular | | | | | | white-diez skin, [id number]. | | | | | | The surgical margin is | | | | | | inked blue;the tissue is | | | | | | bisected, and entirely | | | | | | submitted in cassette | | | | | | A1. MICROSCOPIC | | | | | | DESCRIPTION:There is | | | | | | digitate epidermal | | | | | | hyperplasia with | | | | | | arborization of the | | | | | | peripheralrete, dilated | | | | | | blood vessels within the | | | | | | dermal papillae, and | | | | | | parakeratosis. | | | | | | DIAGNOSIS:VERRUCA | | | | | | VULGARIS. | | | | | | KPW:jb07/18/17 My | | | | | | electronic signature | | | | | | indicates that I have | | | | | | personally reviewed | | | | | | alldiagnostic slides, | | | | | | the gross and/or | | | | | | microscopic portion of | | | | | | thisreport and | | | | | | formulated the final | | | | | | diagnosis. | | | | | | Electronically signed | | | | | | by: Kyle Acevedo | | | | | | MGrazynaPathologistDate | | | | | | Completed: 07/18/2017 | | | | | | 5:58PM | | | | + + + + + + + + | Specimen | + + | | + + + + + | Narrative | Performed At | + + + | | | + + + + + + + + | Performing | Address | City/State/Zipcode | Phone Number | | Organization | | | | + + + + + | [facility] | [address] | [place] [address] | | | DERMATOPATHOLOGY | [address] | | | + + + + + documented in this encounter Visit Diagnoses + + | Diagnosis | + + | Other viral warts | + + documented in this encounter
--- OUTSIDE RECORDS SUMMARY | ~2020-02-22 | XMS | Clinical Summary ---
Demographics + + + | Address | [address] | | | [place] [address] | + + + | Home Phone | | + + + | Preferred Language | Unknown | + + + | Marital Status | | + + + | Mosque Affiliation | 1077 | + + + | Race | Unknown | + + + | Ethnic Group | Unknown | + + + Author + + + | Author | [facility] [employer] (Historical as of | | | 05-16-19) | + + + | Organization | [facility] [employer] (Historical as of | | | 05-16-19) | + + + | Address | Unknown | + + + | Phone | Unavailable | + + + Support + + + + + | Name | Relationship | Address | Phone | + + + + + | Boo Flaherty | ECON | , [address] | | + + + + + | Edyta Pickett | ECON | Unknown | | + + + + + Care Team Providers + +------+ + | Care Online Tutor Name | Role | Phone | + [...] replaced 11/03/2010, Medtronic ADDR01, SN: | | [id number].Last interrogation, 05/23/2016: battery at 2.77V, | | [...] Pacemaker. Model-S/N: Masha ADDYee01 - | | [id number]/28/2017Umm has a high ventricular pacing burden (100%) | | and her LV systolic function has deteriorated. A recent ejection | | fraction is 35-40%, so an upgrade to a OWNER pacemaker has been | | recommended. She has class III symptoms of heart failure. The | | paced QRS duration was 190 ms on a recent ECG06/19/18:A OWNER | | upgrade to a [employer] OWNER pacemaker was performed in November 2017. | [...] | [facility] [place], | | 2018 | /[address] | | Andrew Liang MD | Rhythm [...] +--------+ +--------+ + + | [place] - [place] | [place] - | [phone] | [employer] | [phone] [address] [address] [place] | | HEALTHCARE | [place] | | re | [address] | [place] [address] | | | | | | | [...] cathy | | | [address]14 | [place] [address] | + +--------+ +--------+ + +
--- OUTSIDE RECORDS SUMMARY | ~2020-02-22 | XMS | Clinical Summary ---
Demographics + + + | Address | [address] | | | [place] [address] | + + + | Home Phone | | + + + | Preferred Language | Unknown | + + + | Marital Status | | + + + | Orthodoxy Affiliation | 1077 | + + + | Race | Unknown | + + + | Ethnic Group | Unknown | + + + Author + + + | Author | [facility] | | | and [place] | + + + | Organization | [facility] | | | and [place] | + + + | Address | Unknown | + + + | Phone | Unavailable | + + + Support + + + + + | Name | Relationship | Address | Phone | + + + + + | Boo Flaherty | ECON | , [address] | | + + + + + | Edyat Pickett | ECON | Unknown | | + + + + + Care Team Providers + +------+ + | Care Fuel Handler Name | Role | Phone | + [...] on 06/13/02 by | | Carrol Mauricio, [facility], and | | gen-change was preformed on 11/03/[address] David Albarran MD | | Medtronic - Pacemaker. Model-S/N: Adapta ADDR01 - [id number]. | | 11/28/2017 She has a high ventricular pacing burden (100%) and her | | LV systolic function has deteriorated. A recent ejection fraction | | is 35-40%, so an upgrade to a DELIVERY DRIVER/SUPERVISOR pacemaker has been | | recommended. She has class III symptoms of heart failure. The | | paced QRS duration was 190 ms on a recent ECG 06/19/18: A DELIVERY DRIVER/SUPERVISOR | | upgrade to a [employer] DELIVERY DRIVER/SUPERVISOR pacemaker was performed in November 2017. | [...] | | | | | | [place] [facility] | | | | | | [address] | | | | | | | [...] | + +--------+------+ +--------+--------+--------+ | Implant Id: [id number] - | Cardia | | [facility] [employer] [...] | + +--------+------+ +--------+--------+--------+ | Implant Id: [id number] - Quadra | Cardia | | [facility] [employer] | | 03/29/ | | | Lisa Mp RfImplanted: Qty: 1 | c | | MEDICAL - | | 2018 | /[id number] | | on 12/04/2017 by Andrew Liang [...] Kearns MD : | | | 1930MRN: [id number] Primary cardiology provider: Benson | | | [facility] Primary electrophysiology provider: Andrew Liang Device | | | pediatrician: Alminder Device type: Biventricular Battery Longevity: | | [...] | | | + +--------+ +--------+-------+---------+--------+ | [facility] | [facility] | [id number] | 09/30/19 | | | Medica | [...] | | | 4 (Home) | [place] [address] | + +--------+ +--------+ + + Advance Directives + + + + + | Type | Date Recorded | Patient | Explanation | | | | School Traffic Guard | | + + + + + | Power of | | | | | Office Professionals | | | | + + + + + | Advance | | | | | Directive | | | | + + + + +
--- OUTSIDE RECORDS SUMMARY | ~2020-02-22 | XMS | Encounter Summary ---
Demographics + + + | Address | [address] | | | [place] [address] | + + + | Home Phone | | + + + | Preferred Language | Unknown | + + + | Marital Status | | + + + | Christian Affiliation | 1077 | + + + | Race | Unknown | + + + | Ethnic Group | Unknown | + + + Author + + + | Author | [facility] | | | and [place] | + + + | Organization | [facility] | | | and [place] | + + + | Address | Unknown | + + + | Phone | Unavailable | + + + Support + + + + + | Name | Relationship | Address | Phone | + + + + + | Boo Flaherty | ECON | , [address] | | + + + + + | Edyta Pickett | ECON | Unknown | | + + + + + Care Team Providers + +------+ + | Care Hand Outside Cutter Name | Role | Phone | + +------+ + | Zackary Kearns MD | PCP | | + +------+ + Encounter Details +--------+ + + + + | Date | Type | Department | Care Team | Description | +--------+ + + + + | 10/22/ | Orders Only | [facility] | Benson Weaver, | | | 2018 | | CARDIOLOGY [place] | [address] | | | | | [address] | [place], [place] | | | | | [place], [place] | [address] | | | | | [address] | | | | | | [phone] | | | +--------+ + + + [...] [place] | | | | | | [address] | | | | | | | | +--------+---------+ + + + documented as of this encounter Visit Diagnoses Not on filedocumented in this encounter"
--- OUTSIDE RECORDS SUMMARY | ~2020-02-22 | XMS | Encounter Summary ---
Demographics + + + | Address | [address] | | | [place] [address] | + + + | Home Phone | | + + + | Preferred Language | Unknown | + + + | Marital Status | | + + + | Nondenominational Affiliation | 1077 | + + + | Race | Unknown | + + + | Ethnic Group | Unknown | + + + Author + + + | Author | [facility] | | | and [place] | + + + | Organization | [facility] | | | and [place] | + + + | Address | Unknown | + + + | Phone | Unavailable | + + + Support + + + + + | Name | Relationship | Address | Phone | + + + + + | Boo Flaherty | ECON | , [address] | | + + + + + | Edyta Pickett | ECON | Unknown | | + + + + + Care Team Providers + +------+ + | Care Head Holder Name | Role | Phone | + [...] + + | 08/11/ | Procedure | [facility] | | Cardiac pacemaker in | | 2019 | visit | CARDIOLOGY [place] | | situ (Primary Dx) | | | | [address] | | | | | | [place] | | | | | | [address] | | | | | | [phone] | | | +--------+ + + + [...] | | | | | [place], [place] | | | | | | [address] | | | | | | | [...] Kearns MD : | | | 1930MRN: [id number] Primary cardiology provider: Benson | | | Meg Primary electrophysiology provider: Andrew Liang Device | | | psychological anthropologist: FameBit Device type: Biventricular Battery Longevity: 7.7 | [...] Flaherty PCP: Zackary Kearns MD : 1930MRN: [id number] Primary cardiology | | provider: Benson Weaver Primary electrophysiology provider: Andrew Liang Device | | psychological anthropologist: AbbottDevice type: BiventricularBattery Longevity: 7.7 years RA [...]
--- OUTSIDE RECORDS SUMMARY | ~2020-02-22 | XMS | Encounter Summary ---
Demographics + + + | Address | [address] | | | [place] [address] | + + + | Home Phone | | + + + | Preferred Language | Unknown | + + + | Marital Status | Single | + + + | Jewish Affiliation | Unknown | + + + | Race | Unknown | + + + | Ethnic Group | Other Race | + + + Author + + + | Author | [facility] | + + + | Organization | [facility] | + + + | Address | Unknown | + + + | Phone | Unavailable | + + + Care Team Providers + +------+ + | Care Biodiesel Engine Specialist Name | Role | Phone | [...]
--- OUTSIDE RECORDS SUMMARY | ~2020-02-22 | XMS | Encounter Summary ---
Demographics + + + | Address | [address] | | | [place] [address] | + + + | Home Phone | | + + + | Preferred Language | Unknown | + + + | Marital Status | | + + + | Mandaeism Affiliation | 1077 | + + + [...] | Boo Flaherty | ECON | , [address] | | + + + + + | Edyta Pickett | ECON | Unknown | | + + + + + Care Team Providers + +------+ + | Care Equine Intern Name | Role | Phone | + [...] + + | 05/17/ | Refill | [facility] | Benson Weaver, | Medication Refill | | 2019 | | CARDIOLOGY [place] | MD Stu ANDERSON | | | | | [address] | [place], [place] | | | | | [place], [place] | [address] | | | | | [address] | | | | | | [phone] | | | +--------+--------+ + + + [...] | | | | | [place] | | | | | | [address] | | | | | | | | +--------+---------+ + + + documented as of this encounter Visit Diagnoses Not on filedocumented in this encounter"
--- OUTSIDE RECORDS SUMMARY | ~2020-02-22 | XMS | Encounter Summary ---
Demographics + + + | Address | [address] | | | [place] [address] | + + + | Home Phone | | + + + | Preferred Language | Unknown | + + + | Marital Status | | + + + | Jehovah'S Witness Affiliation | 1077 | + + + | Race | Unknown | + + + | Ethnic Group | Unknown | + + + Author + + + | Author | [facility] | | | and [place] | + + + | Organization | [facility] | | | and [place] | + + + | Address | Unknown | + + + | Phone | Unavailable | + + + Support + + + + + | Name | Relationship | Address | Phone | + + + + + | Boo Flaherty | ECON | , [address] | | + + + + + | Edyta Pickett | ECON | Unknown | | + + + + + Care Team Providers + +------+ + | Care Customer Experience Associate Name | Role | Phone | + [...] + + | 02/08/ | Procedure | [facility] | | Cardiac pacemaker in | | 2020 | visit | CARDIOLOGY [place] | | situ (Primary Dx) | | | | [address] | | | | | | [place] | | | | | | [address] | | | | | | [phone] | | | +--------+ + + + [...] | | | | | | [facility] | | | | | | [address] | | | | | | | [...] Kearns MD : | | | 1930MRN: [id number] Primary cardiology provider: Benson | | | [facility] Primary electrophysiology provider: Andrew Liang Device | | | deputy assessor: Pipewise Device type: Biventricular Battery Longevity: | | [...]
--- OUTSIDE RECORDS SUMMARY | ~2020-02-22 | XMS | Encounter Summary ---
Demographics + + + | Address | [address] | | | [place] [address] | + + + | Home Phone | | + + + | Preferred Language | Unknown | + + + | Marital Status | | + + + | Synagogue Affiliation | 1077 | + + + | Race | Unknown | + + + | Ethnic Group | Unknown | + + + Author + + + | Author | [facility] | | | and [place] | + + + | Organization | [facility] | | | and [place] | + + + | Address | Unknown | + + + | Phone | Unavailable | + + + Support + + + + + | Name | Relationship | Address | Phone | + + + + + | Boo Flaherty | ECON | , [address] | | + + + + + | Edyta Pickett | ECON | Unknown | | + + + + + Care Team Providers + +------+ + | Care Jtac Name | Role | Phone | + [...] + + | 11/10/ | Procedure | [facility] | | Presence of cardiac | | 2020 | visit | CARDIOLOGY [place] | | pacemaker | | | | [address] | | | | | | [place] | | | | | | [address] | | | | | | [phone] | | | +--------+ + + + [...] | | | | | [place], [place] | | | | | | [address] | | | | | | | [...] Kearns MD : | | | 1930MRN: [id number] Primary cardiology provider: Benson | | | Meg Primary electrophysiology provider: Olesya Cuevas Device | | | long term care phlebotomist: Ecal Device type: Biventricular Battery Longevity: | | [...]
--- OUTSIDE RECORDS SUMMARY | ~2020-02-22 | XMS | Encounter Summary ---
Demographics + + + | Address | [address] | | | [place] [address] | + + + | Home Phone | | + + + | Preferred Language | Unknown | + + + | Marital Status | Single | + + + | Anglican Affiliation | Unknown | + + + | Race | Unknown | + + + | Ethnic Group | Other Race | + + + Author + + + | Author | [facility] | + + + | Organization | [facility] | + + + | Address | Unknown | + + + | Phone | Unavailable | + + + Care Team Providers + +------+ + | Care Golf Caddy Name | Role | Phone | + [...] [facility] | | | | | | [facility] | | | | | | and Healing, | | | | | | Building [address], [address]th | | | | | | Floor [place], [place] | | | | | | [address] | | | | | | [phone] | | | +--------+ + + + [...] | | | | | white-diez skin, [id number]. | | | | | | The [...] [facility] | [address] | [place] [address] | | | DERMATOPATHOLOGY | [address] | | | + + + + + documented in this encounter Visit Diagnoses + + | Diagnosis | + + | Other viral warts | + + documented in this encounter
--- OUTSIDE RECORDS SUMMARY | ~2020-02-22 | XMS | Clinical Summary ---
Demographics + + + | Address | [address] | | | [place] [address] | + + + | Home Phone | | + + + | Preferred Language | Unknown | + + + | Marital Status | | + + + | Mormonism Affiliation | 1077 | + + + [...] | Boo Flaherty | ECON | , [address] | | + + + + + | Edyta Pickett | ECON | Unknown | | + + + + + Care Team Providers + +------+ + | Care Income Tax Investigator Name | Role | Phone | + [...] on 06/13/02 by | | Carrol Mauricio, [facility], and | | gen-change was preformed on 11/03/[address] David Albarran MD | | Medtronic - Pacemaker. Model-S/N: Adapta ADDR01 - [id number]. | | 11/28/2017 She has a high ventricular pacing burden (100%) and her | | LV systolic function has deteriorated. A recent ejection fraction | | is 35-40%, so an upgrade to a COMPUTER ANIMATOR pacemaker has been | | recommended. She has class III symptoms of heart failure. The | | paced QRS duration was 190 ms on a recent ECG 06/19/18: A COMPUTER ANIMATOR | | upgrade to a [employer] COMPUTER ANIMATOR pacemaker was performed in November 2017. | [...] | | | | | [facility] [facility] | | | | | | [address] | | | | | | | [...] | + +--------+------+ +--------+--------+--------+ | Implant Id: [id number] - | Cardia | | [facility] [...] | + +--------+------+ +--------+--------+--------+ | Implant Id: [id number] - Quadra | Cardia | | [facility] | | 03/29/ | | | Lisa Mp RfImplanted: Qty: 1 | c | | MEDICAL - | | 2018 | /[id number] | | on 12/04/2017 by Andrew Liang [...] Kearns MD : | | | 1930MRN: [id number] Primary cardiology provider: Benson | | | [facility] Primary electrophysiology provider: Andrew Liang Device | | | verification manager: Lumate Device type: Biventricular Battery Longevity: | | [...] | | | + +--------+ +--------+-------+---------+--------+ | [facility] | [facility] | [id number] | 09/30/19 | | | Medica | [...] | | | 4 (Home) | [place] [address] | + +--------+ +--------+ + + Advance Directives + + + + + | Type | Date Recorded | Patient | Explanation | | | | High Lighter | | + + + + + | Power of | | | | | Administrative Hearing Officer | | | | + + + + + | Advance | | | | | Directive | | | | + + + + +
--- OUTSIDE RECORDS SUMMARY | ~2020-02-22 | XMS | Encounter Summary ---
Demographics + + + | Address | [address] | | | [place] [address] | + + + | Home Phone | | + + + | Preferred Language | Unknown | + + + | Marital Status | | + + + | Uatsdin Affiliation | 1077 | + + + | Race | Unknown | + + + | Ethnic Group | Unknown | + + + Author + + + | Author | [facility] | | | and [place] | + + + | Organization | [facility] | | | and [place] | + + + | Address | Unknown | + + + | Phone | Unavailable | + + + Support + + + + + | Name | Relationship | Address | Phone | + + + + + | Boo Flaherty | ECON | , [address] | | + + + + + | Edyta Pickett | ECON | Unknown | | + + + + + Care Team Providers + +------+ + | Care Chief Building Inspector Name | Role | Phone | + +------+ + | Zackary Kearns MD | PCP | | + +------+ + Encounter Details +--------+ + + + + | Date | Type | Department | Care Team | Description | +--------+ + + + + | 05/20/ | Orders Only | [facility] | Benson Weaver, | | | 2019 | | CARDIOLOGY [place] | [address] | | | | | [address] | [place], [place] | | | | | [place], [place] | [address] | | | | | [address] | | | | | | [phone] | | | +--------+ + + + [...] [place] | | | | | | [address] | | | | | | | | +--------+---------+ + + + documented as of this encounter Visit Diagnoses Not on filedocumented in this encounter"
--- OUTSIDE RECORDS SUMMARY | ~2020-02-22 | XMS | Encounter Summary ---
Demographics + + + | Address | [address] | | | [place] [address] | + + + | Home Phone | | + + + | Preferred Language | Unknown | + + + | Marital Status | | + + + | Anabaptist Affiliation | 1077 | + + + | Race | Unknown | + + + | Ethnic Group | Unknown | + + + Author + + + | Author | [facility] | | | and [place] | + + + | Organization | [facility] | | | and [place] | + + + | Address | Unknown | + + + | Phone | Unavailable | + + + Support + + + + + | Name | Relationship | Address | Phone | + + + + + | Boo Flaherty | ECON | , [address] | | + + + + + | Edyta Pickett | ECON | Unknown | | + + + + + Care Team Providers + +------+ + | Care Geographic Information Systems Director Name | Role | Phone | + [...] + + | 01/13/ | Refill | [facility] | Benson Weaver, | Medication Refill | | 2019 | | CARDIOLOGY [facility]ERNER | [address] | | | | | [address] | [place], [place] | | | | | [place] [address] | [address] | | | | | [place] | | | | | | [address] | | | | | | [phone] | | | +--------+--------+ + + + [...] [place] | | | | | | [address] | | | | | | | | +--------+---------+ + + + documented as of this encounter Visit Diagnoses Not on filedocumented in this encounter"
--- OUTSIDE RECORDS SUMMARY | ~2020-02-22 | XMS | Encounter Summary ---
Demographics + + + | Address | [address] | | | [place] [address] | + + + | Home Phone | | + + + | Preferred Language | Unknown | + + + | Marital Status | Single | + + + | Shinto Affiliation | Unknown | + + + | Race | Unknown | + + + | Ethnic Group | Other Race | + + + Author + + + | Author | [facility] | + + + | Organization | [facility] | + + + | Address | Unknown | + + + | Phone | Unavailable | + + + Care Team Providers + +------+ + | Care Sales Order Specialist Name | Role | Phone | [...]
--- OUTSIDE RECORDS SUMMARY | ~2020-02-22 | XMS | Encounter Summary ---
Demographics + + + | Address | [address] | | | [place] [address] | + + + | Home Phone [...] | Boo Flaherty | ECON | , [address] | | + + + + + | Edyta Pickett | ECON | Unknown | | + + + + + Care Team Providers + +------+ + | Care Community Services Officer Name | Role | Phone | + [...] Provider Unknown | | | | | [place], [place] | [phone] | | | | | [address] | | | | | | [phone] | | | +--------+ + + + [...] [place] | | | | | | [address] | | | | | | | | +--------+---------+ + + + documented as of this encounter Visit Diagnoses Not on filedocumented in this encounter"
--- OUTSIDE RECORDS SUMMARY | ~2020-02-22 | XMS | Clinical Summary ---
Demographics + + + | Address | [address] | | | [place] [address] | + + + | Home Phone | | + + + | Preferred Language | Unknown | + + + | Marital Status | Single | + + + | Restorationist Affiliation | Unknown | + + + | Race | Unknown | + + + | Ethnic Group | Other Race | + + + Author + + + | Author | [facility] | + + + | Organization | [facility] | + + + | Address | Unknown | + + + | Phone | Unavailable | + + + Care Team Providers + +------+ + | Care Bobbin Inspector Name | Role | Phone | + +------+ + PCP | Unavailable | + +------+ + Source Comments [facility] and [facility] InPatient.[facility] Allergies Not on File Medications Not [...] | | | | all | | [address] | | | | | | dates | | | | + +--------+ +--------+ + +--------+ | [facility] | [place] | xxxxxxxxx | Effect | [...] | 1930 | [phone] | [place] [address] | | | cathy | | | 4 (Home) | | + +--------+ +--------+ + +"
--- OUTSIDE RECORDS SUMMARY | ~2020-02-22 | XMS | Encounter Summary ---
Demographics + + + | Address | [address] | | | [place] [address] | + + + | Home Phone | | + + + | Preferred Language | Unknown | + + + | Marital Status | | + + + | Mu-Ism Affiliation | 1077 | + + + | Race | Unknown | + + + | Ethnic Group | Unknown | + + + Author + + + | Author | [facility] | | | and [place] | + + + | Organization | [facility] | | | and [place] | + + + | Address | Unknown | + + + | Phone | Unavailable | + + + Support + + + + + | Name | Relationship | Address | Phone | + + + + + | Boo Flaherty | ECON | , [address] | | + + + + + | Edyta Pickett | ECON | Unknown | | + + + + + Care Team Providers + +------+ + | Care Seismograph Computer Name | Role | Phone | + +------+ + | Zackary Kearns MD | PCP | | + +------+ + Encounter Details +--------+ + + + + | Date | Type | Department | Care Team | Description | +--------+ + + + + | 11/03/ | Orders Only | [facility] | David Albarran MD | | | 2010 | | [facility] | | | | | | CLINICAL LABORATORY | | | | | | [address] | | | | | | [place], [place] | | | | | | [address] | | | | | | [phone] | | | +--------+ + + + [...] | | | | | [place] | | | | | | [address] | | | | | | | [...] EXTERNAL LAB | | Testing performed at [facility] [place] [address];[place] [address] MRSA PCR | | | NEGATIVE Testing performed at | | | [address];[place] [address] | | + + + + +---------+ + + | Performing | Address | City/State/Zipcode | Phone Number | | Organization | | | | + +---------+ + + | EXTERNAL LAB | | | | + +---------+ + + documented in this encounter Visit Diagnoses Not on filedocumented in this encounter"
--- OUTSIDE RECORDS SUMMARY | ~2020-02-22 | XMS | Encounter Summary ---
Demographics + + + | Address | [address] | | | [place] [address] | + + + | Home Phone | | + + + | Preferred Language | Unknown | + + + | Marital Status | | + + + | Islam Affiliation | 1077 | + + + | Race | Unknown | + + + | Ethnic Group | Unknown | + + + Author + + + | Author | [facility] | | | and [place] | + + + | Organization | [facility] | | | and [place] | + + + | Address | Unknown | + + + | Phone | Unavailable | + + + Support + + + + + | Name | Relationship | Address | Phone | + + + + + | Boo Flaherty | ECON | , [address] | | + + + + + | Edyta Pickett | ECON | Unknown | | + + + + + Care Team Providers + +------+ + | Care Dominatrix Name | Role | Phone | + [...] Provider Unknown | | | | | [place], [place] | [phone] | | | | | [address] | | | | | | [phone] | | | +--------+ + + + [...] [place] | | | | | | [address] | | | | | | | | +--------+---------+ + + + documented as of this encounter Visit Diagnoses Not on filedocumented in this encounter"
--- OUTSIDE RECORDS SUMMARY | ~2020-02-22 | XMS | Encounter Summary ---
Demographics + + + | Address | [address] | | | [place] [address] | + + + | Home Phone [...] | Boo Flaherty | ECON | , [address] | | + + + + + | Edyta Pickett | ECON | Unknown | | + + + + + Care Team Providers + +------+ + | Care Supervisor Pyrotechnic Loading Name | Role | Phone | + [...] + + | 11/18/ | Office | [facility] | Benson Abel, | Essential | | 2020 | Visit | CARDIOLOGY WERNER | [address] | hypertension with | | | | [address] | [place], [place] | goal blood pressure | | | | [address] [place] [address] | [address] | less than 130/80 | | | | [place] | | (Primary Dx); | | | | [address] | | 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 Still involved in the hindu and independent in her daily needs. Denies [...] implant 06/13/2002, replaced 11/03/2010, Medtronic ADDR01, SN: [id number]. 11/28/2017 [employer] model HT1377, serial number [id number] permanent pacemaker. ASSESSMENT: Patient is 89 y.o. [...] [place] | | | | | | [address] | | | | | | | [...]
--- OUTSIDE RECORDS SUMMARY | ~2020-02-22 | XMS | Clinical Summary ---
Demographics + + + | Address | [address] | | | [place] [address] | + + + | Home Phone | | + + + | Preferred Language | Unknown | + + + | Marital Status | Single | + + + | Anabaptist Affiliation | Unknown | + + + [...] Team Providers + +------+ + | Care Tableau Developer Name | Role | Phone | + +------+ + PCP | Unavailable | + +------+ + Source Comments BREANN is fully live on both [facility] and [facility] InPatient.[facility] & [facility] Allergies Not on File Medications [...] | | | | all | | [address] | | | | | | dates | | | | + +--------+ +--------+ + +--------+ | [facility] | [place] | xxxxxxxxx | Effect [...] | 1930 | [phone] | [place] [address] | | | cathy | | | 4 (Home) | | + +--------+ +--------+ + +"
--- OUTSIDE RECORDS SUMMARY | ~2020-02-22 | XMS | Encounter Summary ---
Demographics + + + | Address | [address] | | | [place] [address] | + + + | Home Phone | | + + + | Preferred Language | Unknown | + + + | Marital Status | Single | + + + | Sikh Affiliation | Unknown | + + + | Race | Unknown | + + + | Ethnic Group | Other Race | + + + Author + + + | Author | [facility] | + + + | Organization | [facility] | + + + | Address | Unknown | + + + | Phone | Unavailable | + + + Care Team Providers + +------+ + | Care Cloth Winder Machine Operator Name | Role | Phone [...]
--- OUTSIDE RECORDS SUMMARY | ~2020-02-22 | XMS | Encounter Summary ---
Demographics + + + | Address | [address] | | | [place] [address] | + + + | Home Phone | | + + + | Preferred Language | Unknown | + + + | Marital Status | | + + + | Mosque Affiliation | 1077 | + + + | Race | Unknown | + + + | Ethnic Group | Unknown | + + + Author + + + | Author | [facility] | | | and [place] | + + + | Organization | [facility] | | | and [place] | + + + | Address | Unknown | + + + | Phone | Unavailable | + + + Support + + + + + | Name | Relationship | Address | Phone | + + + + + | Boo Flaherty | ECON | , [address] | | + + + + + | Edyta Pickett | ECON | Unknown | | + + + + + Care Team Providers + +------+ + | Care Nuclear Station Operator Name | Role | Phone [...] Provider Unknown | | | | | [place], [place] | [phone] | | | | | [address] | | | | | | [phone] | | | +--------+ + + + [...] [place] | | | | | | [address] | | | | | | | | +--------+---------+ + + + documented as of this encounter Visit Diagnoses Not on filedocumented in this encounter"
--- OUTSIDE RECORDS SUMMARY | ~2020-02-22 | XMS | Encounter Summary ---
Demographics + + + | Address | [address] | | | [place] [address] | + + + | Home Phone [...] | Boo Flaherty | ECON | , [address] | | + + + + + | Edyta Pickett | ECON | Unknown | | + + + + + Care Team Providers + +------+ + | Care Director Plans Name | Role | Phone | + +------+ + PCP | Unavailable | + +------+ + Encounter Details +--------+ + + + + | Date | Type | Department | Care Team | Description | +--------+ + + + + | 11/03/ | Hospital | [facility] | Abdulaziz Albarran MD | Fitting and | | 2010 | Encounter | [facility] | | adjustment of | | | | CLINICAL DECISION | | cardiac pacemaker | | | | [address] | | | | | | [place], [place] | | | | | | [address] | | | | | | [phone] | | | +--------+ + + + [...] | | | | | [place] [facility] [place] | | | | | | [address] | | | | | | | [...] Performed At | + + + | [facility] [address] Ph: | | | Patient Name: SHILA FLAHERTY V Date of : | | | 1930 Medical Record: [id number] Account: [id number] | | | Exam Date/Time: 11/03/2010 13:30 [...] Medtronic, | | | product #ADDR01, serial #[id number]. PHYSIOLOGIC DATA The right | | | atrial lead was a Medtronic lead with a serial #[id number]. The | | | sensing threshold on the right atrial lead was 1.3 millivolts. The | | | impedance was 490 ohms and the pacing threshold was 0.9 volts with a | | | pulse width of 0.5 milliseconds. The right ventricular lead was a | | | Medtronic, product #4023, serial #[id number]. The sensing threshold | | | was [...] DT: | | | 11/04/2010 09:27 P //[id number]/ Read by ABDULAZIZ ALBARRAN MD | | | 11/04/2010 06:59 P Electronically signed by ABDULAZIZ ALBARRAN MD on | | | 11/21/2010 8:23 PM | | + + + + + | Procedure Note | + + | Lenny Vazquez Conversion - 05/23/2019 1:39 PM PDT | | [facility] | | [facility] [address] | | | | | | Patient Name: SHILA FLAHERTY V | | Date of : 1930 | | Medical Record: [id number] | | Account: [id number] | | | | | | Exam [...] | | TECHNICAL DATAPulse generator is a AngioSlide, product #ADDR01, serial | | #[id number]. | | | | PHYSIOLOGIC DATA | | The right atrial lead was a Medtronic lead with a serial #[id number]. | | The sensing threshold on the right atrial lead was 1.3 millivolts. The | | impedance was 490 ohms and the pacing threshold was 0.9 volts with a | | pulse width of 0.5 milliseconds. | | | | The right ventricular lead was a AngioSlide, product #4023, serial | | #[id number]. The sensing threshold was 9.2 millivolts. The [...] | P | | P | | //[id number]/ | | | | Read by | | ABDULAZIZ ALBARRAN MD 11/04/2010 06:59 P | | | | | + + documented in this encounter Visit Diagnoses + + | Diagnosis | + + | Fitting and adjustment of cardiac pacemaker | + + documented in this encounter"
--- OUTSIDE RECORDS SUMMARY | ~2020-02-22 | XMS | Encounter Summary ---
Demographics + + + | Address | [address] | | | [place] [address] | + + + | Home Phone | | + + + | Preferred Language | Unknown | + + + | Marital Status | Single | + + + | Judaism Affiliation | Unknown | + + + | Race | Unknown | + + + | Ethnic Group | Other Race | + + + Author + + + | Author | [facility] | + + + | Organization | [facility] | + + + | Address | Unknown | + + + | Phone | Unavailable | + + + Care Team Providers + +------+ + | Care Medication Reconciliation Technician Name | Role | Phone | [...] CH[facility] | | | | | | [facility] | | | | | | and Healing, | | | | | | Building [address]th | | | | | | Floor [place], [place] | | | | | | [address] | | | | | | [phone] | | | +--------+ + + + [...] skin, | | | | | | [id number]. The surgical | | | | | [...] DARONSU | [address] | [place] [address] | | | DERMATOPATHOLOGY | [address] | | | + + + + + documented in this encounter Visit Diagnoses + + | Diagnosis | + + | Actinic keratosis | + + documented in this encounter
--- OUTSIDE RECORDS SUMMARY | ~2020-02-22 | XMS | Encounter Summary ---
Demographics + + + | Address | [address] | | | [place] [address] | + + + | Home Phone | | + + + | Preferred Language | Unknown | + + + | Marital Status | Single | + + + | Restorationism Affiliation | Unknown | + + + | Race | Unknown | + + + | Ethnic Group | Other Race | + + + Author + + + | Author | [facility] | + + + | Organization | [facility] | + + + | Address | Unknown | + + + | Phone | Unavailable | + + + Care Team Providers + +------+ + | Care Peoplesoft Taleo Manager Name | Role | Phone | [...]
--- OUTSIDE RECORDS SUMMARY | ~2020-02-22 | XMS | Encounter Summary ---
Demographics + + + | Address | [address] | | | [place] [address] | + + + | Home Phone | | + + + | Preferred Language | Unknown | + + + | Marital Status | | + + + | Jewish Affiliation | 1077 | + + + | Race | Unknown | + + + | Ethnic Group | Unknown | + + + Author + + + | Author | [facility] | | | and [place] | + + + | Organization | [facility] | | | and [place] | + + + | Address | Unknown | + + + | Phone | Unavailable | + + + Support + + + + + | Name | Relationship | Address | Phone | + + + + + | Boo Flaherty | ECON | , [address] | | + + + + + | Edyta Pickett | ECON | Unknown | | + + + + + Care Team Providers + +------+ + | Care Obiee Architect Name | Role | Phone | + [...] + + | 01/13/ | Refill | [facility] | Benson Weaver, | Medication Refill | | 2019 | | CARDIOLOGY [place] | [address] | | | | | [address] | [place], [place] | | | | | [place] [address] | [address] | | | | | [place] | | | | | | [address] | | | | | | [phone] | | | +--------+--------+ + + + [...] [place] | | | | | | [address] | | | | | | | | +--------+---------+ + + + documented as of this encounter Visit Diagnoses Not on filedocumented in this encounter"
--- OUTSIDE RECORDS SUMMARY | ~2020-02-22 | XMS | Encounter Summary ---
Demographics + + + | Address | [address] | | | [place] [address] | + + + | Home Phone | | + + + | Preferred Language | Unknown | + + + | Marital Status | | + + + | Yarsani Affiliation | 1077 | + + + | Race | Unknown | + + + | Ethnic Group | Unknown | + + + Author + + + | Author | [facility] | | | and [place] | + + + | Organization | [facility] | | | and [place] | + + + | Address | Unknown | + + + | Phone | Unavailable | + + + Support + + + + + | Name | Relationship | Address | Phone | + + + + + | Boo Flaherty | ECON | , [address] | | + + + + + | Edytakrystle Pickett | ECON | Unknown | | + + + + + Care Team Providers + +------+ + | Care Surveillance Observer Name | Role | Phone | + +------+ + PCP | Unavailable | + +------+ + Encounter Details +--------+ + + + + | Date | Type | Department | Care Team | Description | +--------+ + + + + | 10/10/ | Hospital | [facility] | Conversion | Essential | | 2018 | Encounter | MEDICAL CENTER | Transaction, | hypertension; | | | | CLINICAL DECISION | Provider Unknown | Systolic | | | | [address] | [phone] | dysfunction; | | | | [place], [place] | | Presence of cardiac | | | | [address] | [place], [place], | pacemaker | | | | [phone] | MD Stu ANDERSON | | | | | | [place], [place] | | | | | | [address] | | | | | | | [...] Date of Service: 10/10/17 153 Status: Signed Automotive Salesperson: Marcia Earl RN (Registered Nurse) Groin site remains in tact, no new drainage on bandage. CMS in tact. Pt given discharge ins tructions with all questions addressed, Pt has family to drive her home. Left the unit in st able condition via wheelchair. onver aziza Transaction, Provider Unknown - 10/10/2017 3:05 PM PST Nurse Progress Note by Marcia Earl RN at 10/10/17 1503 Author: Marcia Earl RN Service: (none) Author Type: Registered Nurse Filed: 10/10/17 1542 Date of Service: 10/10/171504 Status: Addendum Automotive Salesperson: Marcia Earl RN (Registered Nurse) Related Notes: [...] 1758 Date of Service: 10/09/171754 Status: Signed Automotive Salesperson: Erasto Quintero RN (Registered Nurse) [facility] Pre-Procedure Telephone Call Type of Procedure [facility] Spoke with: Patient Automobile Washer Steam needed: No Tamazight No Palestinian No Other: Automobile Washer Steam arranged: No Arrival Time: 0900 Check In Location: Main loby Ride and Caregiver: Phone Number for Ride/Caregiver: NPO from: 8hrs prior Diabetic: No If Yes are they on Glucophage/Metformin No Date of last Dose {Blank single:[id number]::"NA" Is patient on Anticoagulants No Date of [...] | | | | | [place] | | | | | | [address] | | | | | | | [...] | | | Basophils | performed at [facility];[address] | LAB | | | | [address];[place], [place] | | | | | | [address] | | | | + + + [...] | | | | | | at [facility] [address] | | | | | | [address];[place] [address] | | | | + + + [...]
--- OUTSIDE RECORDS SUMMARY | ~2020-02-22 | XMS | Encounter Summary ---
Demographics + + + | Address | [address] | | | [place] [address] | + + + | Home Phone | | + + + | Preferred Language | Unknown | + + + | Marital Status | Single | + + + | Moravian Affiliation | Unknown | + + + [...] Team Providers + +------+ + | Care Physical Therapist Aide Name | Role | Phone | + [...] [facility] | | | | | | [facility] | | | | | | and Healing, | | | | | | Building [address], [address]th | | | | | | Floor [place], [place] | | | | | | [address] | | | | | | [phone] | | | +--------+ + + + [...] skin, | | | | | | [id number]. The surgical | | | | | [...] DARONSU | [address] | [place] [address] | | | DERMATOPATHOLOGY | [address] | | | + + + + + documented in this encounter Visit Diagnoses + + | Diagnosis | + + | Actinic keratosis | + + documented in this encounter
--- OUTSIDE RECORDS SUMMARY | 2020-02-22 22:16 | XMS ---
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 Radha has no Care Guidelines for this patient. Benjamin VISIT COUNT (12 MO.) 2 [facility] [place]. TOTAL 2 NOTE: Visits indicate total known visits. ED/C VISIT TRACKING (12 MO.) 02/22/2020 22:15 [facility] [address] 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 - Other acute postprocedural pain - Allergy status to sulfonamides status - Hypertensive heart disease with heart failure - Allergy status to penicillin - Allergy status to other drugs, medicaments and biological sub - Hypothyroidism, unspecified - Allergy status to sulfonamides status - Latex allergy status - Allergy status to penicillin - Unilateral primary osteoarthritis, right knee - Other acute postprocedural pain - Sick sinus syndrome - Unilateral primary osteoarthritis, right knee - correction (current) use of aspirin - Presence of cardiac pacemaker - Presence of cardiac pacemaker - Other snf (current) drug therapy - Latex allergy status - Hypothyroidism, unspecified - correction (current) use of aspirin - Allergy status to other drugs, medicaments and biological sub - Hypertensive heart disease with heart failure [email or web address]
== END 2020-02-22 23:00 | disposition home or self-care (01) ==
LOC: ED 22:14
DX: S81.012D Laceration without foreign body, left knee, subsequent encounter (principal); I10 Essential (primary) hypertension; Z88.0 Allergy status to penicillin; Z88.2 Allergy status to sulfonamides; Z91.048 Other nonmedicinal substance allergy status; Z91.040 Latex allergy status; Z79.82 Long term (current) use of aspirin; Z79.899 Other long term (current) drug therapy; X58.XXXD Exposure to other specified factors, subsequent encounter
CPT/HCPCS: 99283